=== PATIENT | female | born 1945 | race Caucasian/White ===

== ENCOUNTER → 2016-12-22 | Outpatient (CLI) | payer MEDICARE, BC, OTHER ==
[2016-12-22 17:10] LABS: WBC 6.7 k/uL (3.8-10.6); WBC (Perox) 6.81
[2016-12-22 17:11] LABS: Basophils % (A) 1 %; CH 30.2; CHCM 32.8; Eosinophils # (A) 0.1 k/uL (0-0.7); Eosinophils % (A) 2 %; HDW 2.35; HGB 12.8 gm/dL (11.4-16.0); Luc % (Auto) 2; Lymphocytes # (A) 1.7 k/uL (1.0-4.8); Lymphocytes % (A) 25 %; MCH 31.1 pg (25.0-35.0); MCHC 33.6 g/dL (31.0-37.0); MCV 92.6 fL (80.0-100.0); Monocytes # (A) 0.4 k/uL (0-1.0); Monocytes % (A) 6 %; Neutrophils # (A) 4.3 k/uL (1.3-7.7); Neutrophils % (A) 65 %; RBC 4.11 m/uL (3.80-5.40); RDW 14.2 % (11.5-15.5)
[2016-12-22 17:15] LABS: Appearance,Urine Clear (Clear); Bilirubin,Urine Negative (Negative); Glucose,Urine (UA) Negative (Negative); Ketones,Urine Negative (Negative); Leukocyte Esterase,Urine Moderate (Negative); Nitrite,Urine Negative (Negative); Particle Count 1762; Protein,Urine 2+ (Negative); RBC,Urine 3 /hpf (0-5); Specific Gravity,Urine 1.007 (1.001-1.035); Squamous Epithelial Cell,Urine <1 /hpf (0-4); UA Billing (MACRO vs. MICRO) MICRO; Urobilinogen,Urine <2.0 mg/dL (<2.0); WBC,Urine 5 /hpf (0-5)
[2016-12-22 17:35] LABS: Calcium 9.6 mg/dL (8.4-10.2); Magnesium 1.8 mg/dL (1.6-2.3); Phosphorous 3.8 mg/dL (2.5-4.5); Potassium 4.6 mmol/L (3.5-5.1); Uric Acid 6.2 mg/dL (3.7-7.4)
== END | disposition home or self-care (01) ==
LOC: LABWHC1 16:19
PROVIDERS: ATTEND Internal Medicine Nephrology
DX: N18.3 Chronic kidney disease, stage 3 (moderate) (principal); N25.81 Secondary hyperparathyroidism of renal origin; D64.9 Anemia, unspecified; E55.9 Vitamin D deficiency, unspecified; M10.9 Gout, unspecified; N39.0 Urinary tract infection, site not specified
CPT/HCPCS: 36415; 80048; 81001; 82040; 82306; 82728; 83540; 83550; 83735; 83970; 84100; 84550; 85025

== ENCOUNTER → 2017-02-28 | Outpatient (CLI) | payer MEDICARE, BC, OTHER ==
--- NOTE | 2017-02-28 14:54 | CT ---
EXAMINATION TYPE: CT soft tissue neck w con DATE OF EXAM: 02/28/2017 2:00 PM COMPARISON: NONE HISTORY: 71-year-old female with swelling, mass, lump in neck, left ear. TECHNIQUE: Contiguous axial scanning of the neck performed with IV Contrast, patient injected with 50 ml mL of Visipaque 320. Coronal/sagittal reconstructions performed. CT DLP: 595 mGycm Automated exposure control for dose reduction was used. FINDINGS: Visualized intracranial structures, paranasal sinuses, mastoid air cells, and orbits and globes appea r clear. The patient's soft palate is elevated crowding the posterior nasopharynx. There is retropharyngeal course of the bilateral ICAs causing some crowding of the oropharynx as well . Normal prevertebral soft tissues and epiglottis. Some asymmetry to the vocal folds with a larger right piriform sinus is probably positional. No discr ete glottic or subglottic masses identified. The tracheal column is clear. Mild centrilobular emphyse ma within the visualized upper lungs. The thyroid gland, submandibular glands, and parotid glands appear satisfactory. No suspicious neck mass or lymphadenopathy identified. Scattered nonenlarged cervical lymph nodes are present on both sides measuring up to 6 mm. Bones: Moderate spondylotic changes especially in the mid to lower cervical spine. IMPRESSION: 1. CROWDED NASOPHARYNX DUE TO ELEVATED SOFT PALATE AND CROWDED OROPHARYNX DUE TO RETROPHARYNGEAL COUR SE OF THE ICAs. NO DEFINITE MUCOSAL SPACE LESION. 2. THERE IS SOME ASYMMETRY TO THE VOCAL FOLDS WITH A LARGER RIGHT PIRIFORM SINUS, PROBABLY POSITIONAL . CONSIDER DIRECT VISUALIZATION. 3. NO SUSPICIOUS LYMPHADENOPATHY OR MASS OTHERWISE SEEN.
== END | disposition home or self-care (01) ==
LOC: RADCTMAIN 12:45
PROVIDERS: ATTEND Otolaryngology
DX: J39.2 Other diseases of pharynx (principal); R22.1 Localized swelling, mass and lump, neck
CPT/HCPCS: 82565; 84520; 70491; 36415; Q9967

== ENCOUNTER → 2017-03-23 | Outpatient (CLI) | payer MEDICARE, BC, OTHER ==
[2017-03-23 14:43] LABS: Basophils % (A) 1 %; CH 29.8; CHCM 32.7; Eosinophils # (A) 0.1 k/uL (0-0.7); Eosinophils % (A) 2 %; HDW 2.37; HGB 12.2 gm/dL (11.4-16.0); Luc # (Auto) 0.12; Luc % (Auto) 2; Lymphocytes # (A) 1.8 k/uL (1.0-4.8); Lymphocytes % (A) 29 %; MCH 30.1 pg (25.0-35.0); MCHC 32.9 g/dL (31.0-37.0); MCV 91.5 fL (80.0-100.0); Monocytes # (A) 0.4 k/uL (0-1.0); Monocytes % (A) 6 %; Neutrophils # (A) 3.6 k/uL (1.3-7.7); Neutrophils % (A) 60 %; RBC 4.04 m/uL (3.80-5.40); RDW 13.9 % (11.5-15.5); WBC 6.1 k/uL (3.8-10.6); WBC (Perox) 6.35
[2017-03-23 14:46] LABS: Amorphous Sediment,Urine Rare /hpf; Appearance,Urine Clear (Clear); Bilirubin,Urine Negative (Negative); Glucose,Urine (UA) Negative (Negative); Ketones,Urine Negative (Negative); Leukocyte Esterase,Urine Trace (Negative); Nitrite,Urine Negative (Negative); Particle Count 1118; Protein,Urine 2+ (Negative); RBC,Urine <1 /hpf (0-5); Specific Gravity,Urine 1.004 (1.001-1.035); Squamous Epithelial Cell,Urine <1 /hpf (0-4); UA Billing (MACRO vs. MICRO) MICRO; Urobilinogen,Urine <2.0 mg/dL (<2.0); WBC,Urine 2 /hpf (0-5)
[2017-03-23 14:52] LABS: Calcium 9.7 mg/dL (8.4-10.2); Magnesium 1.6 mg/dL (1.6-2.3); Phosphorous 3.2 mg/dL (2.5-4.5); Potassium 4.7 mmol/L (3.5-5.1); Uric Acid 6.1 mg/dL (3.7-7.4)
[2017-03-23 15:01] LABS: % Iron Saturation 33.6 % (20-50)
[2017-03-23 15:05] LABS: Creatinine,Urine Random 54.5 mg/dL
== END | disposition home or self-care (01) ==
LOC: LABWHC1 14:21
PROVIDERS: ATTEND Nurse Practitioner Family
DX: N18.3 Chronic kidney disease, stage 3 (moderate) (principal); E55.9 Vitamin D deficiency, unspecified; R80.9 Proteinuria, unspecified; D64.9 Anemia, unspecified; M10.9 Gout, unspecified
CPT/HCPCS: 36415; 80048; 81001; 82306; 82570; 82728; 83540; 83550; 83735; 83970; 84100; 84156; 84550; 85025

== ENCOUNTER → 2017-05-03 | Outpatient (CLI) | payer MEDICARE, BC, OTHER ==
--- NOTE | 2017-05-04 11:39 | MM ---
Reason for exam: screening (asymptomatic). Last mammogram was performed 1 year and 1 month ago. History: Patient is postmenopausal. Benign cyst aspiration of the right breast. Physical Findings: A clinical breast exam by your physician is recommended on an annual basis and results should be correlated with mammographic findings. MG 3D Screening Mammo W/Cad Bilateral CC and MLO view(s) were taken. Prior study comparison: April 08, 2016, mammogram, performed at [facility]. April 01, 2015, mammogram, performed at [facility]. There are scattered fibroglandular densities. Finding: There are typically benign vascular calcifications in both breasts. There is no discrete abnormality. ASSESSMENT: Benign, BI-RAD 2 RECOMMENDATION: Routine screening mammogram of both breasts in 1 year.
== END | disposition home or self-care (01) ==
LOC: RADMAMWWP 14:58
PROVIDERS: ATTEND Family Medicine
DX: Z12.31 Encounter for screening mammogram for malignant neoplasm of breast (principal)
CPT/HCPCS: 77063; G0202

== ENCOUNTER → 2017-06-22 | Outpatient (CLI) | payer MEDICARE, BC, OTHER ==
[2017-06-22 14:58] LABS: Basophils % (A) 1 %; CH 30.5; CHCM 32.9; Eosinophils # (A) 0.1 k/uL (0-0.7); Eosinophils % (A) 3 %; HDW 2.33; HGB 12.4 gm/dL (11.4-16.0); Luc % (Auto) 2; Lymphocytes # (A) 1.5 k/uL (1.0-4.8); Lymphocytes % (A) 26 %; MCH 30.3 pg (25.0-35.0); MCHC 32.6 g/dL (31.0-37.0); MCV 93.1 fL (80.0-100.0); Mean Platelet Volume 9.3; Monocytes # (A) 0.3 k/uL (0-1.0); Monocytes % (A) 5 %; Neutrophils # (A) 3.7 k/uL (1.3-7.7); Neutrophils % (A) 63 %; RBC 4.08 m/uL (3.80-5.40); RDW 14.4 % (11.5-15.5); WBC 5.8 k/uL (3.8-10.6); WBC (Perox) 6.04
[2017-06-22 15:01] LABS: Appearance,Urine Clear (Clear); Bilirubin,Urine Negative (Negative); Calcium 10.2 mg/dL (8.4-10.2); Glucose,Urine (UA) Negative (Negative); Ketones,Urine Negative (Negative); Leukocyte Esterase,Urine Small (Negative); Magnesium 1.5 mg/dL (1.6-2.3); Nitrite,Urine Negative (Negative); Particle Count 1311; Phosphorous 3.7 mg/dL (2.5-4.5); Potassium 4.7 mmol/L (3.5-5.1); Protein,Urine 3+ (Negative); RBC,Urine 1 /hpf (0-5); Specific Gravity,Urine 1.014 (1.001-1.035); Squamous Epithelial Cell,Urine 1 /hpf (0-4); UA Billing (MACRO vs. MICRO) MICRO; Uric Acid 5.9 mg/dL (3.7-7.4); Urobilinogen,Urine <2.0 mg/dL (<2.0); WBC,Urine 3 /hpf (0-5)
[2017-06-22 15:10] LABS: % Iron Saturation 39.1 % (20-50)
== END | disposition home or self-care (01) ==
LOC: LABWHC1 14:01
PROVIDERS: ATTEND Internal Medicine Nephrology
DX: R80.9 Proteinuria, unspecified (principal); N18.3 Chronic kidney disease, stage 3 (moderate); D63.1 Anemia in chronic kidney disease; M10.9 Gout, unspecified; E55.9 Vitamin D deficiency, unspecified
CPT/HCPCS: 36415; 80048; 81001; 81050; 82306; 82570; 82728; 83540; 83550; 83735; 83970; 84100; 84156; 84550; 85025

== ENCOUNTER → 2018-01-22 | Outpatient (CLI) | payer MEDICARE, BC, OTHER ==
[2018-01-22 12:13] LABS: Appearance,Urine Clear (Clear); Bacteria,Urine Rare /hpf; Bilirubin,Urine Negative (Negative); Blood,Urine Negative (Negative); Color,Urine Yellow; Glucose,Urine (UA) Negative (Negative); Hyaline Casts,Urine 4 /lpf (0-2); Ketones,Urine Negative (Negative); Leukocyte Esterase,Urine Small (Negative); Mucus,Urine Rare /hpf; Nitrite,Urine Negative (Negative); PH, Urine 6.5 (5.0-8.0); Protein,Urine 3+ (Negative); RBC,Urine 1 /hpf (0-5); Specific Gravity,Urine 1.009 (1.001-1.035); Squamous Epithelial Cell,Urine 1 /hpf (0-4); Urobilinogen,Urine <2.0 mg/dL (<2.0); WBC,Urine 7 /hpf (0-5)
[2018-01-22 12:30] LABS: Creatinine,Urine Random 97.8 mg/dL
[2018-01-22 12:35] LABS: Basophils % (A) 1 %; Eosinophils # (A) 0.1 k/uL (0-0.7); Eosinophils % (A) 2 %; HCT 39.6 % (34.0-46.0); HGB 12.6 gm/dL (11.4-16.0); Lymphocytes # (A) 1.5 k/uL (1.0-4.8); Lymphocytes % (A) 26 %; MCH 29.9 pg (25.0-35.0); MCHC 31.9 g/dL (31.0-37.0); MCV 93.8 fL (80.0-100.0); Mean Platelet Volume 8.4; Monocytes # (A) 0.3 k/uL (0-1.0); Monocytes % (A) 5 %; Neutrophils # (A) 3.7 k/uL (1.3-7.7); Neutrophils % (A) 66 %; Platelet Count 288 k/uL (150-450); RBC 4.22 m/uL (3.80-5.40); RDW 13.9 % (11.5-15.5); WBC 5.6 k/uL (3.8-10.6)
[2018-01-22 12:37] LABS: Calcium 10.2 mg/dL (8.4-10.2); Magnesium 1.9 mg/dL (1.6-2.3); Uric Acid 5.3 mg/dL (3.7-7.4)
[2018-01-22 16:26] LABS: Iron Saturation 33.33 (12.00-45.00)
[2018-01-22 16:58] LABS: Parathyroid Hormone Intact 99.7 pg/mL (14.0-72.0)
== END | disposition home or self-care (01) ==
LOC: LABWHC1 11:38
PROVIDERS: ATTEND Physician Assistant Medical
DX: D64.9 Anemia, unspecified (principal); M10.9 Gout, unspecified; N18.3 Chronic kidney disease, stage 3 (moderate); R80.9 Proteinuria, unspecified; E55.9 Vitamin D deficiency, unspecified
CPT/HCPCS: 36415; 80048; 81001; 82306; 82570; 82728; 83540; 83550; 83735; 83970; 84100; 84156; 84550; 85025

== ENCOUNTER → 2018-05-09 | Outpatient (CLI) | payer MEDICARE, BC, OTHER ==
--- NOTE | 2018-05-14 08:06 | MM ---
Reason for exam: screening (asymptomatic). Last mammogram was performed 1 year ago. History: Patient is postmenopausal. Benign cyst aspiration of the right breast. Physical Findings: A clinical breast exam by your physician is recommended on an annual basis and results should be correlated with mammographic findings. MG 3D Screening Mammo W/Cad Bilateral CC and MLO view(s) were taken. Prior study comparison: May 03, 2017, bilateral MG 3d screening mammo w/cad. April 08, 2016, mammogram, performed at [facility]. There are scattered fibroglandular densities. No significant changes when compared with prior studies. ASSESSMENT: Benign, BI-RAD 2 RECOMMENDATION: Routine screening mammogram of both breasts in 1 year.
== END | disposition home or self-care (01) ==
LOC: RADMAMWWP 16:27
PROVIDERS: ATTEND Family Medicine
DX: Z12.31 Encounter for screening mammogram for malignant neoplasm of breast (principal)
CPT/HCPCS: 77063; 77067

== ENCOUNTER → 2018-05-21 | Outpatient (CLI) | payer MEDICARE, BC, OTHER ==
[2018-05-21 11:37] LABS: Calcium 9.9 mg/dL (8.4-10.2); Magnesium 1.9 mg/dL (1.6-2.3); Phosphorus 3.8 mg/dL (2.5-4.5); Potassium 4.7 mmol/L (3.5-5.1); Uric Acid 7.6 mg/dL (3.7-7.4)
[2018-05-21 12:12] LABS: Basophils % (A) 1 %; Eosinophils # (A) 0.1 k/uL (0-0.7); Eosinophils % (A) 2 %; HCT 38.6 % (34.0-46.0); HGB 12.6 gm/dL (11.4-16.0); Lymphocytes # (A) 1.5 k/uL (1.0-4.8); Lymphocytes % (A) 27 %; MCH 30.5 pg (25.0-35.0); MCHC 32.7 g/dL (31.0-37.0); Mean Platelet Volume 7.9; Monocytes # (A) 0.3 k/uL (0-1.0); Monocytes % (A) 5 %; Neutrophils # (A) 3.5 k/uL (1.3-7.7); Neutrophils % (A) 65 %; Platelet Count 273 k/uL (150-450); RBC 4.15 m/uL (3.80-5.40); RDW 14.3 % (11.5-15.5); WBC 5.5 k/uL (3.8-10.6)
[2018-05-21 12:57] LABS: Appearance,Urine Clear (Clear); Bilirubin,Urine Negative (Negative); Blood,Urine Negative (Negative); Color,Urine Yellow; Glucose,Urine (UA) Negative (Negative); Hyaline Casts,Urine 1 /lpf (0-2); Ketones,Urine Negative (Negative); Leukocyte Esterase,Urine Small (Negative); Mucus,Urine Rare /hpf; Nitrite,Urine Negative (Negative); PH, Urine 6.5 (5.0-8.0); Protein,Urine 2+ (Negative); RBC,Urine <1 /hpf (0-5); Specific Gravity,Urine 1.011 (1.001-1.035); Squamous Epithelial Cell,Urine <1 /hpf (0-4); Urobilinogen,Urine <2.0 mg/dL (<2.0); WBC,Urine 3 /hpf (0-5)
[2018-05-21 13:21] LABS: Creatinine,Urine Random 107.5 mg/dL
[2018-05-21 15:58] LABS: Parathyroid Hormone Intact 83.8 pg/mL (14.0-72.0)
[2018-05-21 16:42] LABS: Iron Saturation 23.18 (12.00-45.00)
[2018-05-21 16:51] LABS: Vitamin D 25 Hydroxy 41.1 ng/mL (30.0-100.0)
== END | disposition home or self-care (01) ==
LOC: LABWHC1 10:50
PROVIDERS: ATTEND Nurse Practitioner Family
DX: E55.9 Vitamin D deficiency, unspecified (principal); D63.1 Anemia in chronic kidney disease; N18.3 Chronic kidney disease, stage 3 (moderate); R80.9 Proteinuria, unspecified
CPT/HCPCS: 36415; 80048; 81001; 82306; 82570; 82728; 83540; 83550; 83735; 83970; 84100; 84156; 84550; 85025

== ENCOUNTER → 2018-11-01 | Outpatient (CLI) | payer MEDICARE, BC, OTHER ==
[2018-11-01 20:30] LABS: Anion Gap 8.2 mmol/L (4.00-12.00); Calcium 9.7 mg/dL (8.7-10.3); Carbon Dioxide 23.8 mmol/L (21.6-31.8); Potassium 4.9 mmol/L (3.5-5.5)
== END | disposition home or self-care (01) ==
LOC: LABWHC1 14:11
PROVIDERS: ATTEND Internal Medicine Nephrology
DX: N18.3 Chronic kidney disease, stage 3 (moderate) (principal)
CPT/HCPCS: 36415; 80048

== ENCOUNTER → 2019-01-03 | Outpatient (CLI) | payer MEDICARE, BC, OTHER ==
[2019-01-03 15:13] LABS: Basophils % (A) 1 %; Eosinophils # (A) 0.2 k/uL (0-0.7); Eosinophils % (A) 3 %; HCT 36.9 % (34.0-46.0); HGB 11.5 gm/dL (11.4-16.0); Lymphocytes # (A) 1.7 k/uL (1.0-4.8); Lymphocytes % (A) 30 %; MCH 29.1 pg (25.0-35.0); MCHC 31.3 g/dL (31.0-37.0); MCV 93.1 fL (80.0-100.0); Mean Platelet Volume 8.9; Monocytes # (A) 0.3 k/uL (0-1.0); Monocytes % (A) 6 %; Neutrophils # (A) 3.3 k/uL (1.3-7.7); Neutrophils % (A) 59 %; Platelet Count 261 k/uL (150-450); RBC 3.96 m/uL (3.80-5.40); RDW 14.5 % (11.5-15.5); WBC 5.7 k/uL (3.8-10.6)
[2019-01-03 15:15] LABS: Appearance,Urine Clear (Clear); Bilirubin,Urine Negative (Negative); Blood,Urine Negative (Negative); Color,Urine Yellow; Glucose,Urine (UA) Negative (Negative); Hyaline Casts,Urine 3 /lpf (0-2); Ketones,Urine Negative (Negative); Leukocyte Esterase,Urine Negative (Negative); Nitrite,Urine Negative (Negative); Protein,Urine 3+ (Negative); RBC,Urine 1 /hpf (0-5); Urobilinogen,Urine <2.0 mg/dL (<2.0); WBC,Urine 2 /hpf (0-5)
[2019-01-03 19:11] LABS: Iron Saturation 42.19 (12.00-45.00)
[2019-01-03 19:23] LABS: Albumin 4.4 g/dL (3.80-4.90); Anion Gap 8.9 mmol/L (4.00-12.00); Calcium 9.7 mg/dL (8.7-10.3); Carbon Dioxide 23.1 mmol/L (21.6-31.8); Magnesium 1.7 mg/dL (1.5-2.4); Phosphorus 3.1 mg/dL (2.4-5.1); Potassium 4.5 mmol/L (3.5-5.5); Uric Acid 5.7 mg/dL (2.9-7.7)
[2019-01-03 20:19] LABS: Parathyroid Hormone Intact 126.6 pg/mL (14.0-72.0)
[2019-01-03 21:17] LABS: Total Protein,Urine Random 261.7 mg/dL (0.0-13.5)
[2019-01-03 21:18] LABS: Creatinine,Urine Random 111.8 mg/dL
== END | disposition home or self-care (01) ==
LOC: LABWHC1 13:58
PROVIDERS: ATTEND Internal Medicine Nephrology
DX: N39.0 Urinary tract infection, site not specified (principal); M10.9 Gout, unspecified; N18.3 Chronic kidney disease, stage 3 (moderate); E55.9 Vitamin D deficiency, unspecified; N25.81 Secondary hyperparathyroidism of renal origin; D63.1 Anemia in chronic kidney disease
CPT/HCPCS: 36415; 80048; 81001; 82040; 82306; 82570; 82728; 83540; 83550; 83735; 83970; 84100; 84156; 84550; 85025

== ENCOUNTER → 2019-02-01 | Outpatient (CLI) | payer MEDICARE, BC, OTHER ==
--- NOTE | 2019-02-01 13:47 | CT ---
EXAMINATION TYPE: CT sinus wo con DATE OF EXAM: 02/01/2019 COMPARISON: NONE HISTORY: Congestion with BURRELL CT DLP: 583 mGycm. Automated Exposure Control for Dose Reduction was Utilized. TECHNIQUE: CT scan of the sinuses is performed without contrast, axial images are obtained, coronal r eformatted images are also reviewed. FINDINGS: Very scant mucosal thickening is seen within the inferior left posterior maxillary sinus. R emainder the paranasal sinuses and mastoid air cells are well aerated other than a very small left et hmoid osteoma. The ostiomeatal complexes are patent. No significant mucosal hypertrophy surrounding t he nasal turbinates. There is slight undulation of the nasal septum. Visualized facial bones appear i ntact. Minimal atherosclerosis is seen in the intracranial vasculature. Exam is not optimized for int racranial structures although age-related cerebral atrophy is noted as well as mild periventricular n onspecific white matter change, likely on the basis of chronic microangiopathy. Temporomandibular shanique nts are symmetric. No Fermin cells or malvin bullosa. IMPRESSION: Very scant mucosal thickening within the left maxillary sinus. Ostiomeatal complexes are patent.
== END | disposition home or self-care (01) ==
LOC: RADCTMAIN 13:19
PROVIDERS: ATTEND Family Medicine
DX: J34.89 Other specified disorders of nose and nasal sinuses (principal); J32.9 Chronic sinusitis, unspecified
CPT/HCPCS: 70486

== ENCOUNTER → 2019-04-01 | Outpatient (CLI) | payer MEDICARE, BC, OTHER ==
[2019-04-01 13:33] LABS: Basophils % (A) 1 %; Eosinophils # (A) 0.1 k/uL (0-0.7); Eosinophils % (A) 2 %; HCT 35.6 % (34.0-46.0); HGB 11.5 gm/dL (11.4-16.0); Lymphocytes # (A) 1.2 k/uL (1.0-4.8); Lymphocytes % (A) 27 %; MCHC 32.2 g/dL (31.0-37.0); MCV 93.2 fL (80.0-100.0); Mean Platelet Volume 9.3; Monocytes # (A) 0.2 k/uL (0-1.0); Monocytes % (A) 4 %; Neutrophils # (A) 2.9 k/uL (1.3-7.7); Neutrophils % (A) 64 %; Platelet Count 234 k/uL (150-450); RBC 3.82 m/uL (3.80-5.40); RDW 14.3 % (11.5-15.5); WBC 4.5 k/uL (3.8-10.6)
[2019-04-01 13:59] LABS: Appearance,Urine Clear (Clear); Bilirubin,Urine Negative (Negative); Blood,Urine Negative (Negative); Color,Urine Yellow; Glucose,Urine (UA) Negative (Negative); Ketones,Urine Negative (Negative); Leukocyte Esterase,Urine Negative (Negative); Mucus,Urine Rare /hpf; Nitrite,Urine Negative (Negative); Protein,Urine 2+ (Negative); RBC,Urine 1 /hpf (0-5); Specific Gravity,Urine 1.008 (1.001-1.035); Urobilinogen,Urine <2.0 mg/dL (<2.0); WBC,Urine 1 /hpf (0-5)
[2019-04-01 19:22] LABS: Iron Saturation 31.03 (12.00-45.00)
[2019-04-01 19:29] LABS: Vitamin D 25 Hydroxy 42.3 ng/mL (30.0-100.0)
[2019-04-01 19:35] LABS: Albumin 4.4 g/dL (3.80-4.90); Anion Gap 10.4 mmol/L (4.00-12.00); Calcium 9.6 mg/dL (8.7-10.3); Carbon Dioxide 20.6 mmol/L (21.6-31.8); Magnesium 1.6 mg/dL (1.5-2.4); Phosphorus 3.2 mg/dL (2.4-5.1); Potassium 4.6 mmol/L (3.5-5.5); Uric Acid 5.7 mg/dL (2.9-7.7)
[2019-04-01 20:45] LABS: Creatinine,Urine Random 71.6 mg/dL
[2019-04-01 20:53] LABS: Total Protein,Urine Random 145.3 mg/dL (0.0-13.5)
[2019-04-01 21:50] LABS: Parathyroid Hormone Intact 110.3 pg/mL (14.0-72.0)
== END | disposition home or self-care (01) ==
LOC: LABWHC1 12:52
PROVIDERS: ATTEND Internal Medicine Nephrology
DX: N39.0 Urinary tract infection, site not specified (principal); E55.9 Vitamin D deficiency, unspecified; E21.3 Hyperparathyroidism, unspecified; M10.9 Gout, unspecified; D63.1 Anemia in chronic kidney disease; N18.3 Chronic kidney disease, stage 3 (moderate); R80.9 Proteinuria, unspecified
CPT/HCPCS: 36415; 80048; 81001; 82040; 82306; 82570; 82728; 83540; 83550; 83735; 83970; 84100; 84156; 84550; 85025

== ENCOUNTER → 2019-07-08 | Outpatient (CLI) | payer MEDICARE, BC, OTHER ==
--- NOTE | 2019-07-09 10:07 | MM ---
Reason for exam: screening (asymptomatic). Last mammogram was performed 1 year and 2 months ago. History: Patient is postmenopausal. Benign cyst aspiration of the right breast. Physical Findings: A clinical breast exam by your physician is recommended on an annual basis and results should be correlated with mammographic findings. MG 3D Screening Mammo W/Cad Bilateral CC and MLO view(s) were taken. Prior study comparison: May 09, 2018, bilateral MG 3d screening mammo w/cad. May 03, 2017, bilateral MG 3d screening mammo w/cad. There are scattered fibroglandular densities. Benign appearing bilateral vascular calcifications. No suspicious abnormality. No significant changes when compared with prior studies. ASSESSMENT: Benign, BI-RAD 2 RECOMMENDATION: Routine screening mammogram of both breasts in 1 year.
== END | disposition home or self-care (01) ==
LOC: RADMAMWWP 14:30
PROVIDERS: ATTEND Family Medicine
DX: Z12.31 Encounter for screening mammogram for malignant neoplasm of breast (principal)
CPT/HCPCS: 77063; 77067

== ENCOUNTER → 2019-09-03 | Outpatient (CLI) | payer MEDICARE, BC, OTHER ==
[2019-09-03 15:48] LABS: Appearance,Urine Clear (Clear); Bacteria,Urine Rare /hpf; Bilirubin,Urine Negative (Negative); Blood,Urine Negative (Negative); Color,Urine Light Yellow; Glucose,Urine (UA) Negative (Negative); Ketones,Urine Negative (Negative); Leukocyte Esterase,Urine Negative (Negative); Nitrite,Urine Negative (Negative); Protein,Urine 2+ (Negative); RBC,Urine <1 /hpf (0-5); Specific Gravity,Urine 1.007 (1.001-1.035); Urobilinogen,Urine <2.0 mg/dL (<2.0); WBC,Urine 2 /hpf (0-5)
[2019-09-03 16:31] LABS: Basophils % (A) 1 %; Eosinophils # (A) 0.1 k/uL (0-0.7); Eosinophils % (A) 2 %; HCT 35.7 % (34.0-46.0); HGB 10.8 gm/dL (11.4-16.0); Lymphocytes # (A) 1.2 k/uL (1.0-4.8); Lymphocytes % (A) 24 %; MCH 29.4 pg (25.0-35.0); MCHC 30.3 g/dL (31.0-37.0); MCV 97.1 fL (80.0-100.0); Mean Platelet Volume 9.5; Monocytes # (A) 0.2 k/uL (0-1.0); Monocytes % (A) 4 %; Neutrophils # (A) 3.4 k/uL (1.3-7.7); Neutrophils % (A) 68 %; Platelet Count 215 k/uL (150-450); RBC 3.68 m/uL (3.80-5.40); RDW 14.2 % (11.5-15.5)
[2019-09-03 19:38] LABS: Iron Saturation 32.17 (12.00-45.00)
[2019-09-03 19:39] LABS: Albumin 4.4 g/dL (3.80-4.90); Anion Gap 7.9 mmol/L (4.00-12.00); Calcium 9.2 mg/dL (8.7-10.3); Carbon Dioxide 23.1 mmol/L (21.6-31.8); Magnesium 1.6 mg/dL (1.5-2.4); Phosphorus 3.1 mg/dL (2.4-5.1); Potassium 5.1 mmol/L (3.5-5.5); Uric Acid 5.4 mg/dL (2.9-7.7)
[2019-09-03 19:46] LABS: Ferritin 59.3 ng/mL (10.0-291.0); Vitamin D 25 Hydroxy 39.6 ng/mL (30.0-100.0)
[2019-09-04 04:20] LABS: Creatinine,Urine Random 59.1 mg/dL
[2019-09-04 04:31] LABS: Total Protein,Urine Random 94.7 mg/dL (0.0-13.5)
== END | disposition home or self-care (01) ==
LOC: LABWHC1 14:37
PROVIDERS: ATTEND Nurse Practitioner Family
DX: E55.9 Vitamin D deficiency, unspecified (principal); N25.81 Secondary hyperparathyroidism of renal origin; M10.9 Gout, unspecified; N39.0 Urinary tract infection, site not specified; D63.1 Anemia in chronic kidney disease; N18.3 Chronic kidney disease, stage 3 (moderate)
CPT/HCPCS: 36415; 80048; 81001; 82040; 82306; 82570; 82728; 83540; 83550; 83735; 83970; 84100; 84156; 84550; 85025

== ENCOUNTER → 2019-10-04 | Outpatient (CLI) | payer MEDICARE, BC, OTHER ==
[2019-10-04 19:00] LABS: African American GFR (CKD) 29.8 (60.0-200.0); Anion Gap 8.5 mmol/L (4.00-12.00); Calcium 9.4 mg/dL (8.7-10.3); Carbon Dioxide 20.5 mmol/L (21.6-31.8)
== END | disposition home or self-care (01) ==
LOC: LABWHC1 14:29
PROVIDERS: ATTEND Internal Medicine Nephrology
DX: N18.3 Chronic kidney disease, stage 3 (moderate) (principal)
CPT/HCPCS: 36415; 80048

== ENCOUNTER → 2019-12-10 | Outpatient (CLI) | payer MEDICARE, BC, OTHER ==
[2019-12-10 14:21] LABS: Basophils % (A) 0 %; Eosinophils # (A) 0.1 k/uL (0-0.7); Eosinophils % (A) 2 %; HCT 35.9 % (34.0-46.0); HGB 11.2 gm/dL (11.4-16.0); Lymphocytes # (A) 1.2 k/uL (1.0-4.8); Lymphocytes % (A) 26 %; MCH 29.4 pg (25.0-35.0); MCHC 31.1 g/dL (31.0-37.0); MCV 94.5 fL (80.0-100.0); Mean Platelet Volume 8.9; Monocytes # (A) 0.2 k/uL (0-1.0); Monocytes % (A) 4 %; Neutrophils # (A) 3.2 k/uL (1.3-7.7); Neutrophils % (A) 66 %; Platelet Count 210 k/uL (150-450); RDW 14.1 % (11.5-15.5); WBC 4.8 k/uL (3.8-10.6)
[2019-12-10 15:04] LABS: Appearance,Urine Clear (Clear); Bilirubin,Urine Negative (Negative); Blood,Urine Negative (Negative); Color,Urine Yellow; Glucose,Urine (UA) Negative (Negative); Hyaline Casts,Urine 3 /lpf (0-2); Ketones,Urine Negative (Negative); Leukocyte Esterase,Urine Negative (Negative); Nitrite,Urine Negative (Negative); Protein,Urine 2+ (Negative); RBC,Urine <1 /hpf (0-5); Urobilinogen,Urine <2.0 mg/dL (<2.0); WBC,Urine 1 /hpf (0-5)
[2019-12-10 19:46] LABS: % Iron Saturation 45.53 (12.00-45.00); African American GFR (CKD) 29.8 (60.0-200.0); Albumin 4.4 g/dL (3.80-4.90); Anion Gap 8.7 mmol/L (4.00-12.00); BUN/Creat Ratio 21.58 Ratio (12.00-20.00); Calcium 9.4 mg/dL (8.7-10.3); Carbon Dioxide 20.3 mmol/L (21.6-31.8); Magnesium 1.6 mg/dL (1.5-2.4); Non-African American GFR(CKD) 25.7 (60.0-200.0); Phosphorus 3.5 mg/dL (2.4-5.1); Potassium 4.8 mmol/L (3.5-5.5); Uric Acid 5.1 mg/dL (2.9-7.7)
[2019-12-10 19:54] LABS: Ferritin 63.2 ng/mL (10.0-291.0)
== END | disposition home or self-care (01) ==
LOC: LABWHC1 13:39
PROVIDERS: ATTEND Internal Medicine Nephrology
DX: N18.3 Chronic kidney disease, stage 3 (moderate) (principal); M10.9 Gout, unspecified; R80.9 Proteinuria, unspecified
CPT/HCPCS: 36415; 80048; 81001; 82040; 82306; 82570; 82728; 83540; 83550; 83735; 83970; 84100; 84156; 84550; 85025

== ENCOUNTER → 2020-03-11 | Outpatient (CLI) | payer MEDICARE, BC, OTHER ==
[2020-03-11 11:37] LABS: Basophils % (A) 0 %; Eosinophils # (A) 0.1 k/uL (0-0.7); Eosinophils % (A) 2 %; HCT 35.9 % (34.0-46.0); HGB 11.2 gm/dL (11.4-16.0); Lymphocytes # (A) 1.5 k/uL (1.0-4.8); Lymphocytes % (A) 20 %; MCH 29.4 pg (25.0-35.0); MCHC 31.1 g/dL (31.0-37.0); MCV 94.5 fL (80.0-100.0); Mean Platelet Volume 10.2; Monocytes # (A) 0.3 k/uL (0-1.0); Monocytes % (A) 4 %; Neutrophils # (A) 5.3 k/uL (1.3-7.7); Neutrophils % (A) 72 %; Platelet Count 230 k/uL (150-450); RDW 14.2 % (11.5-15.5); WBC 7.3 k/uL (3.8-10.6)
[2020-03-11 12:02] LABS: Protein/Creatinine Ratio,Urine 2.748
[2020-03-11 12:09] LABS: Appearance,Urine Clear (Clear); Bacteria,Urine Rare /hpf; Bilirubin,Urine Negative (Negative); Blood,Urine Negative (Negative); Color,Urine Yellow; Glucose,Urine (UA) Negative (Negative); Hyaline Casts,Urine 1 /lpf (0-2); Ketones,Urine Negative (Negative); Leukocyte Esterase,Urine Trace (Negative); Mucus,Urine Rare /hpf; Nitrite,Urine Negative (Negative); Protein,Urine 2+ (Negative); RBC,Urine 1 /hpf (0-5); Specific Gravity,Urine 1.011 (1.001-1.035); Squamous Epithelial Cell,Urine <1 /hpf (0-4); Urobilinogen,Urine <2.0 mg/dL (<2.0); WBC,Urine 1 /hpf (0-5)
[2020-03-11 18:35] LABS: % Iron Saturation 28.35 (12.00-45.00); Albumin 4.4 g/dL (3.80-4.90); Magnesium 1.6 mg/dL (1.5-2.4); Phosphorus 3.9 mg/dL (2.4-5.1)
[2020-03-11 18:44] LABS: Ferritin 91.2 ng/mL (10.0-291.0)
== END | disposition home or self-care (01) ==
LOC: LABWHC1 11:06
PROVIDERS: ATTEND Nurse Practitioner Family
DX: M10.9 Gout, unspecified (principal); N39.0 Urinary tract infection, site not specified; R80.9 Proteinuria, unspecified; N25.81 Secondary hyperparathyroidism of renal origin; N18.3 Chronic kidney disease, stage 3 (moderate); D63.8 Anemia in other chronic diseases classified elsewhere
CPT/HCPCS: 36415; 81001; 82040; 82306; 82570; 82728; 83540; 83550; 83735; 83970; 84100; 84156; 84550; 85025

== ENCOUNTER 2020-07-30 10:33 | Day surgery (SDC) | payer MEDICARE, BC, OTHER ==
[2020-07-27 15:36] VITALS: BMI 27.4
[~2020-07-30 10:33] MED LIST: LACTATED RINGERS 1,000 ML IV SCH
[2020-07-30 11:03] VITALS: TEMP 98.4
[2020-07-30] MEDS ORDERED: LIDOCAINE 1% (10MG/ML) FOR IV START INTRADERMA ONE (11:17)
[2020-07-30] MEDS ORDERED: PROPOFOL 10 MG/ML 20 ML VIAL IV ONE (12:37)
--- NOTE | 2020-07-30 13:07 | P.PCN ---
Date of Procedure: 07/30/20 Description of Procedure: BRIEF HISTORY: Patient is a 75-year-old female who presents for outpatient colonoscopy for evaluation of change in bowel habits. She reports constipation which has developed over the past 3 weeks. She states straining with bowel movements. Last colonoscopy approximate 6 years ago as per her recollection. She does report a polyp in the past. PROCEDURE PERFORMED: Colonoscopy. PREOPERATIVE DIAGNOSIS: Change in bowel habits, patient reports last colonoscopy 6 years ago. ESTIMATED BLOOD LOSS: Minimal. IV sedation per Anesthesia. PROCEDURE: After informed consent was obtained, the patient, was brought into the endoscopy unit. IV sedation was administered by Anesthesia under continuous monitoring. Digital rectal examination was normal. Initially the Olympus CF-190 flexible video colonoscope was then inserted in the rectum, gradually advanced into the cecum without any difficulty. Careful examination was performed as the scope was gradually being withdrawn. Ileocecal valve and the appendiceal orifice were visualized and appeared normal. Prep was excellent. Mucosa of the cecum, ascending colon, transverse colon, descending colon, sigmoid colon, and rectum appeared normal. Multiple large and small mouth diverticula in the sigmoid and descending colon. Retroflexion was performed in the rectum and no lesions were seen. The patient tolerated the procedure well. IMPRESSION: Severe left colonic diverticulosis. Low-grade internal hemorrhoids Otherwise normal-appearing colon from rectum to cecum. RECOMMENDATIONS: Findings of this examination were discussed with the patient. Okay to resume diet and medications. Would recommend initiation of MiraLAX therapy which has been discussed with the patient length. Follow up with primary care provider as previously scheduled.
[2020-07-30 13:56] VITALS: BP 172/78; PULSE 88; RESP 20
== END 2020-07-30 13:05 | disposition home or self-care (01) ==
LOC: ORWHC2ENDO 10:33
PROVIDERS: ATTEND Internal Medicine
DX: K57.30 Diverticulosis of large intestine without perforation or abscess without bleeding (principal); K64.8 Other hemorrhoids; I10 Essential (primary) hypertension; E78.5 Hyperlipidemia, unspecified; N28.9 Disorder of kidney and ureter, unspecified; M19.90 Unspecified osteoarthritis, unspecified site; K21.9 Gastro-esophageal reflux disease without esophagitis; Z79.891 Long term (current) use of opiate analgesic; Z79.899 Other long term (current) drug therapy; Z88.1 Allergy status to other antibiotic agents; Z88.5 Allergy status to narcotic agent; Z88.0 Allergy status to penicillin; Z88.2 Allergy status to sulfonamides; Z88.8 Allergy status to other drugs, medicaments and biological substances
CPT/HCPCS: 45378; J2704

== ENCOUNTER → 2020-09-02 | Outpatient (CLI) | payer MEDICARE, BC, OTHER ==
--- NOTE | 2020-09-07 08:29 | MM ---
Reason for exam: screening (asymptomatic). Last mammogram was performed 1 year and 2 months ago. History: Patient is postmenopausal. Benign cyst aspiration of the right breast. Physical Findings: A clinical breast exam by your physician is recommended on an annual basis and results should be correlated with mammographic findings. MG 3D Screening Mammo W/Cad Bilateral CC and MLO view(s) were taken. Prior study comparison: July 08, 2019, bilateral MG 3d screening mammo w/cad. May 09, 2018, bilateral MG 3d screening mammo w/cad. There are scattered fibroglandular densities. No significant changes when compared with prior studies. ASSESSMENT: Benign, BI-RAD 2 RECOMMENDATION: Routine screening mammogram of both breasts in 1 year. Manage on a clinical basis with regard to stinging sensation in the left breast.
== END | disposition home or self-care (01) ==
LOC: RADMAMWWP 12:58
PROVIDERS: ATTEND Family Medicine
DX: Z12.31 Encounter for screening mammogram for malignant neoplasm of breast (principal)
CPT/HCPCS: 77063; 77067

== ENCOUNTER → 2020-09-29 | Outpatient (CLI) | payer MEDICARE, BC, OTHER ==
[2020-09-29 15:16] LABS: HCT 34.6 % (34.0-46.0); MCH 30.8 pg (25.0-35.0); MCHC 31.9 g/dL (31.0-37.0); MCV 96.4 fL (80.0-100.0); Mean Platelet Volume 9.6; Platelet Count 189 k/uL (150-450); RBC 3.59 m/uL (3.80-5.40); RDW 14.7 % (11.5-15.5); WBC 5.4 k/uL (3.8-10.6)
[2020-09-30 02:43] LABS: % Iron Saturation 54.89 (12.00-45.00); African American GFR (CKD) 24.8 (60.0-200.0); Albumin 4.3 g/dL (3.80-4.90); Albumin/Globulin Ratio 2.05 (1.60-3.17); Anion Gap 8.8 mmol/L (4.00-12.00); BUN/Creat Ratio 21.82 Ratio (12.00-20.00); Calcium 9.6 mg/dL (8.7-10.3); Carbon Dioxide 22.2 mmol/L (21.6-31.8); Globulin 2.1 g/dL (1.6-3.3); Magnesium 1.8 mg/dL (1.5-2.4); Non-African American GFR(CKD) 21.4 (60.0-200.0); Phosphorus 4.5 mg/dL (2.4-5.1); Potassium 5.4 mmol/L (3.5-5.5); Total Bilirubin 0.4 mg/dL (0.2-1.2); Total Protein 6.4 g/dL (6.2-8.2); Uric Acid 5.5 mg/dL (2.9-7.7)
[2020-09-30 02:52] LABS: Ferritin 57.2 ng/mL (10.0-291.0)
== END | disposition home or self-care (01) ==
LOC: LABWHC1 13:40
PROVIDERS: ATTEND Nurse Practitioner Family
DX: E55.9 Vitamin D deficiency, unspecified (principal); D63.1 Anemia in chronic kidney disease; N18.30 Chronic kidney disease, stage 3 unspecified; N25.81 Secondary hyperparathyroidism of renal origin; M10.9 Gout, unspecified
CPT/HCPCS: 36415; 80053; 82306; 82728; 83540; 83550; 83735; 83970; 84100; 84550; 85027

== ENCOUNTER → 2020-11-03 | Outpatient (CLI) | payer MEDICARE, BC, OTHER ==
--- NOTE | 2020-11-03 16:40 | US ---
EXAMINATION TYPE: US carotid duplex BILAT DATE OF EXAM: 11/03/2020 COMPARISON: NONE CLINICAL HISTORY: H54.7 Visual loss. Pt states visual loss left eye, loss of balance EXAM MEASUREMENTS: RIGHT: Peak Systolic Velocity (PSV) cm/sec ----- Right CCA: 61.3 ----- Right ICA: 81.2 ----- Right ECA: 87.0 ICA/CCA ratio: 1.3 RIGHT: End Diastole cm/sec ----- Right CCA: 17.7 ----- Right ICA: 25.8 ----- Right ECA: 10.8 LEFT: Peak Systolic Velocity (PSV) cm/sec ----- Left CCA: 62.4 ----- Left ICA: 96.2 ----- Left ECA: 88.7 ICA/CCA ratio: 1.5 LEFT: End Diastole cm/sec ----- Left CCA: 16.8 ----- Left ICA: 32.3 ----- Left ECA: 17.2 VERTEBRALS (direction of flow): Right Vertebral: Antegrade Left Vertebral: Antegrade Rhythm: Normal Grayscale, color Doppler, spectral Doppler imaging performed of the carotid arteries. Waveform analys is does not show significant stenosis of the internal carotid arteries. No significant stenosis seen IMPRESSION: No hemodynamic significant stenosis of the proximal internal carotid arteries by Doppler criteria, an indirect measurement of carotid stenosis Criteria for Assigning % of Stenosis / Diameter reduction (Estimation based on the indirect measurements of the internal carotid artery velocities (ICA PSV). 1. Normal (no stenosis)=ICA PSV < 125 cm/s: ratio < 2.0: ICA EDV<40 cm/s. 2. Less than 50% stenosis=ICA PSV < 125 cm/s: ratio < 2.0: ICA EDV<40 cm/s. 3. 50 to 69% stenosis=ICA PSV of 125 to 230 cm/s: ration 2.0 ? 4.0: ICA EDV 40-100 cm/s. 4. Greater than 70% stenosis to near occlusion= ICA PSV > 230 cm/s: ratio > 4.0: ICA EDV > 100 cm/s. 5. Near occlusion= ICA PSV velocities may be low or undetectable: variable ratio and ICA EDV. 6. Total occlusion=unable to detect flow.
--- NOTE | 2020-11-03 21:07 | CT ---
EXAMINATION TYPE: CT brain wo con DATE OF EXAM: 11/03/2020 COMPARISON: None available. HISTORY: memory loss, changes in vision, loss of balance CT DLP: 1017.9 mGycm Automated exposure control for dose reduction was used. FINDINGS: There is no acute intracranial hemorrhage, midline shift, mass effect or hydrocephalus. There is mode rate white matter disease and mild parenchymal volume loss. The espinal-white differentiation is maintai desean. The calvarium is intact. The paranasal sinuses and mastoid air cells are adequately aerated. IMPRESSION: NO ACUTE INTRACRANIAL ABNORMALITY. CHRONIC MICROVASCULAR ISCHEMIC CHANGES.
== END | disposition home or self-care (01) ==
LOC: RADUSWWP 15:52
PROVIDERS: ATTEND Family Medicine
DX: I67.82 Cerebral ischemia (principal); H54.7 Unspecified visual loss
CPT/HCPCS: 70450; 93880

== ENCOUNTER → 2021-03-11 | Day surgery (SDC) | payer MEDICARE, BC, OTHER ==
[2021-03-08 13:33] VITALS: BMI 28.5
[~2021-03-11] MED LIST changes: -LACTATED RINGERS 1,000 ML IV SCH; +SODIUM CHLORIDE 0.9% 1,000 ML IV SCH
[2021-03-11 12:22] VITALS: BP 176/82; PULSE 67; RESP 18; TEMP 97.7
--- NOTE | 2021-03-11 14:03 | P.EPPROC ---
- EP Procedure Note Electrophysiology Procedure Note: Diagnosis Recurrent palpitations recurrent presyncope Twelve-lead EKG shows Sinus mechanism normal CO narrow QRS normal QT interval no delta waves Sinus arrhythmia, heart rate 57 beats Tilt table test per protocol Baseline blood pressure 171/80 mmHg, Baseline heart rate 64 beats a minute Patient was tilted upright at an angle of 70 per protocol for blood pressure remained elevated throughout the study vein 150 260 mmHg. Heart rate remained stable in the 60s There was no evidence for dysautonomia No evidence for neurocardiogenic syncope No evidence for orthostatic intolerance There was no evidence for syncope She is laid supine at the end of the procedure Impression Normal twelve-lead EKG is sinus arrhythmia No evidence for neurocardiogenic syncope dysautonomia Elevated blood pressure readings
== END ==
LOC: CATHEP 11:48
PROVIDERS: ATTEND Internal Medicine Clinical Cardiac Electrophysiology
DX: R55 Syncope and collapse (principal); R00.2 Palpitations; R07.89 Other chest pain; I12.9 Hypertensive chronic kidney disease with stage 1 through stage 4 chronic kidney disease, or unspecified chronic kidney disease; N18.31 Chronic kidney disease, stage 3a; H54.62 Unqualified visual loss, left eye, normal vision right eye; D47.2 Monoclonal gammopathy; Z98.42 Cataract extraction status, left eye; Z98.41 Cataract extraction status, right eye; Z87.891 Personal history of nicotine dependence; E78.5 Hyperlipidemia, unspecified; Z82.49 Family history of ischemic heart disease and other diseases of the circulatory system; I67.1 Cerebral aneurysm, nonruptured; Z79.02 Long term (current) use of antithrombotics/antiplatelets; Z79.899 Other long term (current) drug therapy
CPT/HCPCS: 93660

== ENCOUNTER → 2021-03-30 | Outpatient (CLI) | payer MEDICARE, BC, OTHER ==
--- NOTE | 2021-03-30 14:47 | US ---
EXAMINATION TYPE: US kidneys/renal and bladder DATE OF EXAM: 03/30/2021 COMPARISON: US CLINICAL HISTORY: CKD stage 4 N18.4. Renal cysts on prior US. EXAM MEASUREMENTS: Right Kidney: 10.5 x 3.9 x 5.2 cm Left Kidney: 9.5 x 3.8 x 3.9 cm Post Void Residual Volume: 1.8 mL Right Kidney: multiple renal cysts with largest at superior pole = 4.9 x 46 x 4.4cm and next largest mid pole = 3.6 x 4.0 x 4.3cm ; hyperechoic vessel wall calcifications are noted Left Kidney: multiple renal cysts with largest = 2.8 x 3.1 x 2.5cm; poor corticomedullary differentia tion is noted bilateral renal; hyperechoic vessel wall calcifications are seen Bladder: wnl Bilateral Jets seen: no only right ureteral jet was seen within 3 minute observation Normal Post Void Residual: Yes There is no evidence for hydronephrosis at this point in time. No nephrolithiasis is seen. The urin ana bladder is anechoic. IMPRESSION: 1. Bilateral renal cysts. 2. Suspected vascular calcifications within the bilateral kidneys
== END | disposition home or self-care (01) ==
LOC: RADUSWWP 13:37
PROVIDERS: ATTEND Internal Medicine Nephrology
DX: N28.1 Cyst of kidney, acquired (principal)
CPT/HCPCS: 76770

== ENCOUNTER → 2021-07-01 | Outpatient (CLI) | payer MEDICARE, BC, OTHER ==
--- NOTE | 2021-07-01 15:29 | CT ---
EXAMINATION TYPE: CT brain jennieine wo con DATE OF EXAM: 07/01/2021 COMPARISON: 11/03/2020 HISTORY: Aneurysm. Pt c/o falls and dizziness. CT DLP: 439.60 mGycm, Automated exposure control for dose reduction was used. CONTRAST: Patient injected with 0 mL of Isovue 300. CT of the brain is performed utilizing 3 mm thick sections through the posterior fossa and 3 mm thick sections through the remaining calvarium. Study is performed within 24 hours of arrival to the hospital. No abnormal hyperdensity is present to suggest an acute intracranial hemorrhage. No mass lesion is evident. No acute infarcts are evident. Patchy periventricular white matter ischemic-type changes. Ventricles and sulci are appropriate for the patient age. Paranasal sinuses and mastoid air cells within the [id number]-iapl are clear. IMPRESSIONS: 1. No acute intracranial process 2. Periventricular patchy hypodensity, likely on the basis of chronic white matter ischemic changes CT cervical spine. COMPARISON: None CT of the cervical spine is performed in the axial plane at 2 mm thick sections. Reconstructed image s in the coronal, and sagittal plane are reviewed on the computer. No acute fractures are evident. Vertebral body alignment is normal. Loss of disc height is evident C5-6 C6-7. Vertebral body heights are preserved. No spinal canal stenosis is evident. Posterior endplate spurring however is noted C5-6 mild anterior thecal sac compression. There is uncovertebral joint hypertrophy and facet hypertrophy at C2-C3 on the left contributing to s evere left foraminal stenosis. Uncovertebral joint hypertrophy and facet hypertrophy is contributing to mild right and moderate left foraminal stenosis seen for. Uncovertebral joint hypertrophy at C5-6 and C6-7 has moderate bilateral foraminal stenosis. IMPRESSIONS: 1. Degenerative disc changes and foraminal stenosis discussed above. This is greater in the lower cer vical spine.
== END | disposition home or self-care (01) ==
LOC: RADCTMAIN 14:37
PROVIDERS: ATTEND Family Medicine
DX: I67.1 Cerebral aneurysm, nonruptured (principal)
CPT/HCPCS: 70450; 72125

== ENCOUNTER → 2021-07-16 | Outpatient (CLI) | payer MEDICARE, BC, OTHER ==
[2021-07-16 23:32] LABS: Basophils # (A) 0.03 X 10*3/uL (0.00-0.10); Basophils % (A) 0.2 %; Eosinophils # (A) 0.05 X 10*3/uL (0.04-0.35); Eosinophils % (A) 0.4 %; HCT 32.1 % (37.2-46.3); HGB 9.9 g/dL (12.0-15.0); Lymphocytes # (A) 1.42 X 10*3/uL (0.90-5.00); Lymphocytes % (A) 11.7 %; MCH 29.8 pg (27.0-32.0); MCHC 30.8 g/dL (32.0-37.0); MCV 96.7 fL (80.0-97.0); Mean Platelet Volume 12.3 fL (9.5-12.2); Monocytes # (A) 0.97 X 10*3/uL (0.20-1.00); Neutrophils # (A) 9.54 X 10*3/uL (1.80-7.70); Neutrophils % (A) 78.7 %; Platelet Count 240 X 10*3/uL (140-440); RBC 3.32 X 10*6/uL (4.10-5.20); RDW 14.7 % (11.5-14.5); WBC 12.13 X 10*3/uL (4.50-10.00)
[2021-07-17 13:18] LABS: % Iron Saturation 32.32 (12.00-45.00)
[2021-07-17 13:30] LABS: Ferritin 42.1 ng/mL (10.0-291.0)
== END | disposition home or self-care (01) ==
LOC: LABWHC1 13:38
PROVIDERS: ATTEND Psychiatry & Neurology Pain Medicine
DX: N18.4 Chronic kidney disease, stage 4 (severe) (principal); D64.9 Anemia, unspecified; H53.9 Unspecified visual disturbance
CPT/HCPCS: 36415; 82728; 83540; 83550; 85025

== ENCOUNTER 2021-08-21 20:18 | Emergency (ER) | payer MEDICARE, BC, OTHER ==
[2021-08-21 20:56] VITALS: BP 150/70; PULSE 72; RESP 20; TEMP 98.3
--- NOTE | 2021-08-21 23:02 | ED ---
Fall HPI - General Chief Complaint: Fall Stated Complaint: Fall Time Seen by Provider: 08/21/21 22:23 Source: patient Mode of arrival: ambulatory - History of Present Illness Initial Comments: 76-year-old female presents to the emergency department with a chief complaint of a fall. Patient reports she has a. States she has seen multiple specialists and they have run many test but they have not derived to a final diagnosis. Patient states today she was carrying some popcorn and fell to the ground but denies any loss of consciousness. States that she did hit her head but denies significant signs of trauma to the head. States her biggest complaint is on the left elbow where she has developed multiple regions of bruising but she has full range of motion and denies any weakness or paresthesias in the left arm. Patient is on Plavix. - Related Data Home Medications Medication Instructions Recorded Confirmed Atorvastatin [Lipitor] 40 mg PO DAILY 07/27/20 03/11/21 Dicyclomine [Bentyl] 10 mg PO BID 07/27/20 03/11/21 Lisinopril-Hctz 20-25 mg 0.5 tab PO QAM 07/27/20 03/11/21 [Zestoretic 20-25] Magnesium Oxide [Mag-Ox] 400 mg PO DAILY 07/27/20 03/11/21 Venlafaxine HCl [Effexor XR] 150 mg PO DAILY 07/27/20 03/11/21 allopurinoL [Zyloprim] 100 mg PO BID 07/27/20 03/11/21 calcitrioL [Calcitriol] 0.25 mcg PO MO 07/27/20 03/11/21 traMADol HCL [Ultram] 50 mg PO BID 07/27/20 03/11/21 Cholecalciferol (Vitamin D3) 125 mcg PO Q14D 07/30/20 03/11/21 [Vitamin D3] Clopidogrel Bisulfate [Plavix] 75 mg PO HS 03/08/21 03/11/21 Famotidine [Pepcid] 20 mg PO BID 03/08/21 03/11/21 Fexofenadine/Pseudoephedrine 1 each PO DAILY 03/08/21 03/11/21 [Maggie-D 24 Hour Tablet] Montelukast Sodium [Singulair] 10 mg PO HS 03/08/21 03/11/21 Psyllium Husk (with Sugar) 1 applicate PO DAILY 03/08/21 03/11/21 [Metamucil Powder] Triamcinolone Acetonide [Nasacort] 1 spray EA NOSTRIL DAILY PRN 03/08/21 03/11/21 cycloSPORINE [Restasis] 1 applicator BOTH EYES BID 03/08/21 03/11/21 Allergies Allergy/AdvReac Type Severity Reaction Status Date / Time ciprofloxacin [From Cipro] Allergy "so weak I Verified 08/21/21 20:56 couldn't stand up" codeine Allergy Unknown Verified 08/21/21 20:56 levofloxacin [From Levaquin] Allergy "so weak I Verified 08/21/21 20:56 couldn't even stand up" Penicillins Allergy Rash/Hives Verified 08/21/21 20:56 Sulfa (Sulfonamide Allergy Unknown Verified 08/21/21 20:56 Antibiotics) Childhood diphenhydramine AdvReac "have Verified 08/21/21 20:56 opposite reaction, high energy for 3 days" tree,mold Allergy Unknown Uncoded 08/21/21 20:56 Review of Systems ROS Statement: Those systems with pertinent positive or pertinent negative responses have been documented in the HPI. ROS Other: All systems not noted in ROS Statement are negative. Past Medical History Past Medical History: GERD/Reflux, Hyperlipidemia, Hypertension, Osteoarthritis (OA), Renal Disease Additional Past Medical History / Comment(s): hx of gout, states stage 4 renal disease, brain aneurysm x 2, see Dr Sow H&P, told TIA's- no residual refects, varicose veins, "bad sinus problems", hx bleeding ulcer, constipation, History of Any Multi-Drug Resistant Organisms: None Reported Past Surgical History: Heart Catheterization, Hernia Repair, Hysterectomy, Tonsillectomy Additional Past Surgical History / Comment(s): maria del rosario cataracts, cyst removed left upper leg , maria del rosario great toe-spurs removed, Past Anesthesia/Blood Transfusion Reactions: No Reported Reaction Past Psychological History: No Psychological Hx Reported Smoking Status: Former smoker Past Alcohol Use History: None Reported Past Drug Use History: None Reported - Past Family History Mother Family Medical History: No Reported History General Exam Limitations: no limitations General appearance: alert, in no apparent distress Head exam: Present: atraumatic, normocephalic, normal inspection. Absent: other (Negative Nicholas sign, raccoon eyes, hemotympanum.) Eye exam: Present: normal appearance, PERRL, EOMI Pupils: Present: normal accommodation ENT exam: Present: normal exam, normal oropharynx, mucous membranes moist Neck exam: Present: normal inspection, full ROM. Absent: tenderness Respiratory exam: Present: normal lung sounds bilaterally. Absent: respiratory distress, wheezes, rales, rhonchi, stridor Cardiovascular Exam: Present: regular rate, normal rhythm, normal heart sounds. Absent: systolic murmur, diastolic murmur, rubs GI/Abdominal exam: Present: soft. Absent: distended, tenderness, guarding, rebound Extremities exam: Present: full ROM, tenderness (Tenderness over the left elbow), normal capillary refill, other (Palpable ulnar and radial pulses bilaterally. Sensation intact in the left arm). Absent: normal inspection (Multiple region of ecchymosis over the left elbow), pedal edema, joint swelling, calf tenderness Back exam: Present: normal inspection, full ROM. Absent: tenderness Neurological exam: Present: alert, oriented X3 Psychiatric exam: Present: normal affect, normal mood Skin exam: Present: warm, dry, intact, normal color Course Vital Signs 08/21/21 20:51 Temperature 98.3 F Pulse Rate 72 Respiratory 20 Rate Blood Pressure 150/70 O2 Sat by Pulse 99 Oximetry Medical Decision Making - Medical Decision Making 76-year-old female presents to the emergency department with a chief complaint of a fall. On physical examination, patient is well-appearing. Hematoma left elbow noted. No acute injuries to the head. CT of the brain and C-spine is unremarkable. X-ray of the left elbow shows no acute findings. Patient advised to apply warm compresses to the hematomas. I offered laboratory work, she declined. Return parameters were discussed with patient was up standing agreeable. Case discussed physician. Disposition Clinical Impression: Fall, Traumatic hematoma of elbow Disposition: HOME SELF-CARE Condition: Stable Instructions (If sedation given, give patient instructions): Fall Prevention (ED), Hematoma (ED) Additional Instructions: Please return to the Emergency Department if symptoms worsen or any other concerns. Is patient prescribed a controlled substance at d/c from ED?: No Referrals: Marcus Solis DO [Primary Care Provider] - 1-2 days Time of Disposition: 23:39
--- NOTE | 2021-08-21 23:22 | CT ---
EXAMINATION TYPE: CT brain cspine wo con DATE OF EXAM: 08/21/2021 COMPARISON: 07/01/2021 HISTORY: Fall CT DLP: 1309.5 mGycm Automated exposure control for dose reduction was used. Ventricles have normal size. There is hypodensity in the periventricular white matter consistent with chronic small vessel ischemia. There is mild cerebral atrophy. There is no midline shift. There is n o sign of intracranial hemorrhage. Cervical vertebra have normal alignment. There is degenerative disc space narrowing at C5-6 and C6-7 with spur formation. Prevertebral soft tissues are intact. Facet joints are intact. IMPRESSION: Cerebral atrophy and chronic small vessel ischemia without change compared to old exam. Cervical spondylotic changes in the lower cervical spine. No fracture.
--- NOTE | 2021-08-21 23:26 | XR ---
EXAMINATION TYPE: XR elbow complete LT DATE OF EXAM: 08/21/2021 COMPARISON: NONE HISTORY: Pain TECHNIQUE: 3 views FINDINGS: There is posterior soft tissue swelling at the distal humerus. I see no fracture nor disloc ation. There is also soft tissue swelling over the posterior proximal ulna. There is no evidence of j oint effusion. IMPRESSION: Soft tissue swelling. No fracture seen.
== END 2021-08-21 23:50 | disposition home or self-care (01) ==
LOC: EC 20:18
DX: S50.02XA Contusion of left elbow, initial encounter (principal); I10 Essential (primary) hypertension; K21.9 Gastro-esophageal reflux disease without esophagitis; M19.90 Unspecified osteoarthritis, unspecified site; E78.5 Hyperlipidemia, unspecified; Z87.891 Personal history of nicotine dependence; Z88.1 Allergy status to other antibiotic agents; Z88.5 Allergy status to narcotic agent; Z88.0 Allergy status to penicillin; Z88.2 Allergy status to sulfonamides; Z88.8 Allergy status to other drugs, medicaments and biological substances; Z91.09 Other allergy status, other than to drugs and biological substances; Z79.899 Other long term (current) drug therapy; W18.30XA Fall on same level, unspecified, initial encounter; Y92.89 Other specified places as the place of occurrence of the external cause
CPT/HCPCS: 70450; 72125; 99284

== ENCOUNTER → 2021-12-22 | Outpatient (CLI) | payer MEDICARE, BC, OTHER ==
--- NOTE | 2021-12-27 09:17 | MM ---
Reason for exam: clinical finding. Last mammogram was performed 1 year and 4 months ago. History: Patient is postmenopausal. Benign cyst aspiration of the right breast. Physical Findings: Nurse did not find any significant physical abnormalities on exam. MG 3D Diag Mammo W/Cad BETTINA Bilateral CC and MLO view(s) were taken. Prior study comparison: September 02, 2020, bilateral MG 3d screening mammo w/cad. July 08, 2019, bilateral MG 3d screening mammo w/cad. The breast tissue is heterogeneously dense. This may lower the sensitivity of mammography. There is no discrete abnormality. No significant new findings when compared with previous films. These results were verbally communicated with the patient and result sheet given to the patient on 12/22/21. ASSESSMENT: Negative, BI-RAD 1 RECOMMENDATION: Routine screening mammogram of both breasts in 1 year.
== END | disposition home or self-care (01) ==
LOC: RADMAMWWP 14:48
PROVIDERS: ATTEND Family Medicine
DX: N64.4 Mastodynia (principal)
CPT/HCPCS: 77066; G0279; 77062

== ENCOUNTER 2022-02-24 13:32 | Emergency (ER) | payer MEDICARE, BC, OTHER ==
[2022-02-24 13:38] VITALS: RESP 18; TEMP 98
[2022-02-24] MEDS ORDERED: SODIUM CHLORIDE 0.9% 500 ML 500 ML IV STA (15:14)
[2022-02-24] MEDS ORDERED: fentaNYL (PF) 50 MCG/ML 2 ML AMP IVP STA (15:20)
--- NOTE | 2022-02-24 15:23 | ED ---
General Adult HPI - General Chief complaint: Syncope Stated complaint: clavicle issues Time Seen by Provider: 02/24/22 15:05 Source: patient, family (spouse), RN notes reviewed, old records reviewed Mode of arrival: wheelchair Limitations: no limitations - History of Present Illness Initial comments: This is a pleasant 76-year-old female that presents with her spouse with complaints of right clavicle pain after falling out of bed on Monday. She is ta patrica Plavix but denies hitting her head. was sleeping next to her was able to get her up into the bed. Patient was seen by her primary care doctor and sent to the emergency room for evaluation of right shoulder. While in the waiting room patient was sitting in the wheelchair and had a near syncopal episode. She denies any chest pain or shortness of breath, no difficulty in breathing. She states she felt dizzy but did not pass out. She states the last thing she ate was cereal this morning. She states that the pain in her shoulder is 9 out of 10 and has been having difficulty moving her right arm. -: days(s) (4) Location: right, upper extremity (clavicle) Severity scale (1-10): 9 Quality: sharp, constant Consistency: constant Improves with: immobilization Worsens with: movement Associated Symptoms: other (near syncope in waiting room today) Treatments Prior to Arrival: none - Related Data Home Medications Medication Instructions Recorded Confirmed Atorvastatin [Lipitor] 40 mg PO DAILY 07/27/20 03/11/21 Dicyclomine [Bentyl] 10 mg PO BID 07/27/20 03/11/21 Lisinopril-Hctz 20-25 mg 0.5 tab PO QAM 07/27/20 03/11/21 [Zestoretic 20-25] Magnesium Oxide [Mag-Ox] 400 mg PO DAILY 07/27/20 03/11/21 Venlafaxine HCl [Effexor XR] 150 mg PO DAILY 07/27/20 03/11/21 allopurinoL [Zyloprim] 100 mg PO BID 07/27/20 03/11/21 calcitrioL [Calcitriol] 0.25 mcg PO MO 07/27/20 03/11/21 traMADol HCL [Ultram] 50 mg PO BID 07/27/20 03/11/21 Cholecalciferol (Vitamin D3) 125 mcg PO Q14D 07/30/20 03/11/21 [Vitamin D3] Clopidogrel Bisulfate [Plavix] 75 mg PO HS 03/08/21 03/11/21 Famotidine [Pepcid] 20 mg PO BID 03/08/21 03/11/21 Fexofenadine/Pseudoephedrine 1 each PO DAILY 03/08/21 03/11/21 [Maggie-D 24 Hour Tablet] Montelukast Sodium [Singulair] 10 mg PO HS 03/08/21 03/11/21 Psyllium Husk (with Sugar) 1 applicate PO DAILY 03/08/21 03/11/21 [Metamucil Powder] Triamcinolone Acetonide [Nasacort] 1 spray EA NOSTRIL DAILY PRN 03/08/21 03/11/21 cycloSPORINE [Restasis] 1 applicator BOTH EYES BID 03/08/21 03/11/21 Previous Rx's Medication Instructions Recorded Lidocaine 5% Patch [Lidoderm] 1 patch TOPICAL DAILY 10 Days #10 02/24/22 patch Allergies Allergy/AdvReac Type Severity Reaction Status Date / Time ciprofloxacin [From Cipro] Allergy "so weak I Verified 02/24/22 13:34 couldn't stand up" codeine Allergy Unknown Verified 02/24/22 13:34 levofloxacin [From Levaquin] Allergy "so weak I Verified 02/24/22 13:34 couldn't even stand up" Penicillins Allergy Rash/Hives Verified 02/24/22 13:34 Sulfa (Sulfonamide Allergy Unknown Verified 02/24/22 13:34 Antibiotics) Childhood diphenhydramine AdvReac "have Verified 02/24/22 13:34 opposite reaction, high energy for 3 days" tree,mold Allergy Unknown Uncoded 02/24/22 13:34 Review of Systems ROS Statement: Those systems with pertinent positive or pertinent negative responses have been documented in the HPI. ROS Other: All systems not noted in ROS Statement are negative. Past Medical History Past Medical History: GERD/Reflux, Hyperlipidemia, Hypertension, Osteoarthritis (OA), Renal Disease Additional Past Medical History / Comment(s): hx of gout, states stage 4 renal disease, brain aneurysm x 2, see Dr Sow H&P, told TIA's- no residual refects, varicose veins, "bad sinus problems", hx bleeding ulcer, constipation, History of Any Multi-Drug Resistant Organisms: None Reported Past Surgical History: Heart Catheterization, Hernia Repair, Hysterectomy, Tonsillectomy Additional Past Surgical History / Comment(s): maria del rosario cataracts, cyst removed left upper leg , maria del rosario great toe-spurs removed, Past Anesthesia/Blood Transfusion Reactions: No Reported Reaction Past Psychological History: No Psychological Hx Reported Smoking Status: Former smoker Past Alcohol Use History: None Reported Past Drug Use History: None Reported - Past Family History Mother Family Medical History: No Reported History General Exam Limitations: no limitations General appearance: alert, in no apparent distress Head exam: Present: atraumatic, normocephalic, normal inspection Eye exam: Present: normal appearance. Absent: scleral icterus, conjunctival injection, periorbital swelling ENT exam: Present: normal exam, normal oropharynx, mucous membranes moist Neck exam: Present: normal inspection, full ROM, other (left inner cheek 2mm hem atoma). Absent: tenderness, meningismus, lymphadenopathy, thyromegaly Respiratory exam: Present: normal lung sounds bilaterally. Absent: respiratory distress, accessory muscle use Cardiovascular Exam: Present: regular rate, normal rhythm GI/Abdominal exam: Present: soft. Absent: distended, tenderness, guarding, rebound, rigid Extremities exam: Present: normal capillary refill. Absent: pedal edema Back exam: Present: normal inspection, full ROM. Absent: tenderness, CVA tenderness (R), CVA tenderness (L), rash noted Neurological exam: Present: alert, oriented X3 Expanded Patient oriented to: Present: person, place, time Speech: Present: fluid speech Cranial nerves: Gag Reflex: Normal, Tongue Deviation: Normal Eye Response: (4) open spontaneously Motor Response: (6) obeys commands Verbal Response: (5) oriented [place] Total: 15 Psychiatric exam: Present: normal affect, normal mood Skin exam: Present: warm, dry, other (Ecchymosis right chest wall and clavicle). Absent: rash, cyanosis, diaphoretic Course Vital Signs 02/24/22 02/24/22 02/24/22 13:34 15:41 16:48 Temperature 98 F Pulse Rate 68 79 80 Respiratory 18 18 18 Rate Blood Pressure 118/64 150/91 160/91 O2 Sat by Pulse 96 97 96 Oximetry EKG Findings - EKG Results: EKG: sinus rhythm (Ventricular rate of 65, TN interval 0.179, QRS 0.90, QTC 0.407) Medical Decision Making - Medical Decision Making 76-year-old female fell out of bed on Monday landing on her right shoulder. Chest x-ray shows a minimally offset fracture of the right lateral fifth rib wi th soft tissue swelling. There is also a transverse fracture of the right mid clavicular shaft with inferior displacement and [id number] degenerative changes in the right AC joint. Right humerus shows an impacted anteriorly displaced angulated fracture of the surgical neck of the humerus. There seems to be some bony bridging this fracture site and associated moderate to severe degenerative change. No humeral shaft fracture noted. Patient is neurovascularly intact. She is on Plavix did not hit her head. There is no evidence of head trauma. She is alert and oriented x 4. is at bedside. CBC shows slight leukocytosis likely from injury. BUN and creatinine are elevated slightly worse compared to labs dated September 2020. EKG shows sinus rhythm with ventricular rate of 65 and troponin negative at 0.012. Magnesium is elevated at 2.7. She was advised to stop taking her Mag-Ox at home and discuss her lab results with her primary care doctor next week. I did speak with Awilda with orthopedics who suggested patient be placed in a sling and follow-up in the office with Dr. Short next week. She was also prescribed Lidoderm patches today in addition to her previously prescribed tramadol for pain. Case discussed with Dr. Braswell. Patient is agreeable to this plan of care - Lab Data Result diagrams: 02/24/22 15:27 02/24/22 15:27 Lab Results 02/24/22 02/24/22 02/24/22 Range/Units 15:27 15:27 15:27 WBC 12.3 H (3.8-10.6) k/uL RBC 4.14 (3.80-5.40) m/uL Hgb 12.1 (11.4-16.0) gm/dL Hct 38.6 (34.0-46.0) % MCV 93.3 (80.0-100.0) fL MCH 29.3 (25.0-35.0) pg MCHC 31.4 (31.0-37.0) g/dL RDW 14.0 (11.5-15.5) % Plt Count 250 (150-450) k/uL MPV 9.2 Neutrophils % 84 % Lymphocytes % 8 % Monocytes % 5 % Eosinophils % 2 % Basophils % 1 % Neutrophils # 10.3 H (1.3-7.7) k/uL Lymphocytes # 1.0 (1.0-4.8) k/uL Monocytes # 0.7 (0-1.0) k/uL Eosinophils # 0.2 (0-0.7) k/uL Basophils # 0.1 (0-0.2) k/uL PT 10.1 (9.0-12.0) sec INR 0.9 (<1.2) APTT 22.4 (22.0-30.0) sec Sodium 134 L (137-145) mmol/L Potassium 4.9 (3.5-5.1) mmol/L Chloride 103 (98-107) mmol/L Carbon Dioxide 20 L (22-30) mmol/L Anion Gap 11 mmol/L BUN 50 H (7-17) mg/dL Creatinine 2.89 H (0.52-1.04) mg/dL Est GFR (CKD-EPI)AfAm 18 (>60 ml/min/1.73 sqM) Est GFR (CKD-EPI)NonAf 15 (>60 ml/min/1.73 sqM) Glucose 103 H (74-99) mg/dL Calcium 9.7 (8.4-10.2) mg/dL Magnesium 2.7 H (1.6-2.3) mg/dL Total Bilirubin 0.5 (0.2-1.3) mg/dL AST 19 (14-36) U/L ALT 16 (4-34) U/L Alkaline Phosphatase 79 (38-126) U/L Troponin I (0.000-0.034) ng/mL Total Protein 7.1 (6.3-8.2) g/dL Albumin 4.3 (3.5-5.0) g/dL Urine Color Urine Appearance (Clear) Urine pH (5.0-8.0) Ur Specific [place] (1.001-1.035) Urine Protein (Negative) Urine Glucose (UA) (Negative) Urine Ketones (Negative) Urine Blood (Negative) Urine Nitrite (Negative) Urine Bilirubin (Negative) Urine Urobilinogen (<2.0) mg/dL Ur Leukocyte Esterase (Negative) Urine RBC (0-5) /hpf Urine WBC (0-5) /hpf Urine Mucus (None) /hpf 02/24/22 02/24/22 Range/Units 15:27 16:50 WBC (3.8-10.6) k/uL RBC (3.80-5.40) m/uL Hgb (11.4-16.0) gm/dL Hct (34.0-46.0) % MCV (80.0-100.0) fL MCH (25.0-35.0) pg MCHC (31.0-37.0) g/dL RDW (11.5-15.5) % Plt Count (150-450) k/uL MPV Neutrophils % % Lymphocytes % % Monocytes % % Eosinophils % % Basophils % % Neutrophils # (1.3-7.7) k/uL Lymphocytes # (1.0-4.8) k/uL Monocytes # (0-1.0) k/uL Eosinophils # (0-0.7) k/uL Basophils # (0-0.2) k/uL PT (9.0-12.0) sec INR (<1.2) APTT (22.0-30.0) sec Sodium (137-145) mmol/L Potassium (3.5-5.1) mmol/L Chloride (98-107) mmol/L Carbon Dioxide (22-30) mmol/L Anion Gap mmol/L BUN (7-17) mg/dL Creatinine (0.52-1.04) mg/dL Est GFR (CKD-EPI)AfAm (>60 ml/min/1.73 sqM) Est GFR (CKD-EPI)NonAf (>60 ml/min/1.73 sqM) Glucose (74-99) mg/dL Calcium (8.4-10.2) mg/dL Magnesium (1.6-2.3) mg/dL Total Bilirubin (0.2-1.3) mg/dL AST (14-36) U/L ALT (4-34) U/L Alkaline Phosphatase (38-126) U/L Troponin I <0.012 (0.000-0.034) ng/mL Total Protein (6.3-8.2) g/dL Albumin (3.5-5.0) g/dL Urine Color Yellow Urine Appearance Clear (Clear) Urine pH 6.5 (5.0-8.0) Ur Specific [place] 1.014 (1.001-1.035) Urine Protein 2+ H (Negative) Urine Glucose (UA) Negative (Negative) Urine Ketones Negative (Negative) Urine Blood Negative (Negative) Urine Nitrite Negative (Negative) Urine Bilirubin Negative (Negative) Urine Urobilinogen <2.0 (<2.0) mg/dL Ur Leukocyte Esterase Negative (Negative) Urine RBC 1 (0-5) /hpf Urine WBC 2 (0-5) /hpf Urine Mucus Rare H (None) /hpf Disposition Clinical Impression: Right clavicle fracture, Humerus surgical neck fracture, Rib fracture, Near syncope, Chronic kidney disease Disposition: HOME SELF-CARE Condition: Good Instructions (If sedation given, give patient instructions): Clavicle Fracture (ED), Arm Fracture in Adults (ED), Rib Fracture (ED) Additional Instructions: Wear sling and follow-up with orthopedics next week. Continue taking your tramadol for pain. You can also use the Lidoderm patches as prescribed. Take deep breaths and cough to prevent pneumonia at least once an hour. Stop taking your magnesium oxide until seen by her primary care doctor to discuss her magnesium levels. Also discuss your elevated kidney function tests. Return to the emergency room with a new or concerning symptoms including shortness of breath, chest pain, fevers or increased pain. Prescriptions: Lidocaine 5% Patch [Lidoderm] 1 patch TOPICAL DAILY 10 Days #10 patch Is patient prescribed a controlled substance at d/c from ED?: No Referrals: Marcus Solis DO [Primary Care Provider] - 1-2 days Kristine Short DO [Doctor of Osteopathic Medicine] - 1-2 days Time of Disposition: 17:18
[2022-02-24 15:38] LABS: Basophils # (A) 0.1 k/uL (0-0.2); Basophils % (A) 1 %; Eosinophils # (A) 0.2 k/uL (0-0.7); Eosinophils % (A) 2 %; HCT 38.6 % (34.0-46.0); HGB 12.1 gm/dL (11.4-16.0); Lymphocytes % (A) 8 %; MCH 29.3 pg (25.0-35.0); MCHC 31.4 g/dL (31.0-37.0); MCV 93.3 fL (80.0-100.0); Mean Platelet Volume 9.2; Monocytes # (A) 0.7 k/uL (0-1.0); Monocytes % (A) 5 %; Neutrophils # (A) 10.3 k/uL (1.3-7.7); Neutrophils % (A) 84 %; Platelet Count 250 k/uL (150-450); RBC 4.14 m/uL (3.80-5.40); WBC 12.3 k/uL (3.8-10.6)
[2022-02-24 15:51] LABS: Albumin 4.3 g/dL (3.5-5.0); Calcium 9.7 mg/dL (8.4-10.2); Magnesium 2.7 mg/dL (1.6-2.3); Potassium 4.9 mmol/L (3.5-5.1); Total Bilirubin 0.5 mg/dL (0.2-1.3); Total Protein 7.1 g/dL (6.3-8.2)
[2022-02-24 15:54] LABS: INR 0.9 (<1.2); Partial Thromboplastin Time 22.4 sec (22.0-30.0); Prothrombin Time 10.1 sec (9.0-12.0)
--- NOTE | 2022-02-24 15:55 | XR ---
EXAMINATION TYPE: XR chest 2V, XR clavicle 2 views RT, XR humerus 2 views RT DATE OF EXAM: 02/24/2022 COMPARISON: None HISTORY: 76-year-old female syncope, pain after fall 3 days ago FINDINGS: Chest: The heart is borderline enlarged. Mild atherosclerotic arch calcifications. Mild hyperinflation. Some strandy atelectasis in the lower lungs. No pneumothorax seen. There is a minimally offset fracture o f the right lateral fifth rib. There may be some mild underlying pleural based soft tissue swelling o r effusion. Right clavicle: There is a transverse fracture of the mid right clavicular shaft with one shaft's width of inferior d isplacement. Mild to moderate degenerative change right AC joint. Right humerus: There is an impacted, anteriorly displaced, and anterior apex angulated fracture of the surgical neck of the humerus. There seems to be some bony bridging at this fracture site and associated moderate t o severe degenerative change of the glenohumeral joint. No elbow joint effusion. No humeral shaft fr acture. IMPRESSION: 1. Chest: Minimally offset fracture right lateral fifth rib. Some underlying pleural based soft tissu e swelling/hematoma versus trace effusion. 2. Right clavicle: Transverse fracture mid right clavicular shaft with one shaft's width of inferior displacement. 3. Right humerus: Marked deformity of the humeral head and an impacted surgical neck fracture. There seems to be bony bridging here and a chronic fracture deformity is favored. Clinically correlate. Ass ociated posttraumatic left glenohumeral joint OA.
[2022-02-24 16:48] VITALS: BP 160/91; PULSE 80
[2022-02-24 17:04] LABS: Appearance,Urine Clear (Clear); Bilirubin,Urine Negative (Negative); Blood,Urine Negative (Negative); Color,Urine Yellow; Glucose,Urine (UA) Negative (Negative); Ketones,Urine Negative (Negative); Leukocyte Esterase,Urine Negative (Negative); Mucus,Urine Rare /hpf; Nitrite,Urine Negative (Negative); PH, Urine 6.5 (5.0-8.0); Protein,Urine 2+ (Negative); RBC,Urine 1 /hpf (0-5); Specific Gravity,Urine 1.014 (1.001-1.035); Urobilinogen,Urine <2.0 mg/dL (<2.0); WBC,Urine 2 /hpf (0-5)
== END 2022-02-24 17:42 | disposition home or self-care (01) ==
LOC: EC 13:32
DX: Z87.891 Personal history of nicotine dependence (principal); S42.001A Fracture of unspecified part of right clavicle, initial encounter for closed fracture; S42.211A Unspecified displaced fracture of surgical neck of right humerus, initial encounter for closed fracture; S22.39XA Fracture of one rib, unspecified side, initial encounter for closed fracture; I10 Essential (primary) hypertension; N18.9 Chronic kidney disease, unspecified; Z88.0 Allergy status to penicillin; Z88.5 Allergy status to narcotic agent; Z88.2 Allergy status to sulfonamides; Z91.048 Other nonmedicinal substance allergy status; Z88.8 Allergy status to other drugs, medicaments and biological substances; Z88.1 Allergy status to other antibiotic agents; W06.XXXA Fall from bed, initial encounter
CPT/HCPCS: 36415; 93005; 80053; 83735; 84484; 85025; 85610; 85730; 81001; 73000; 73060; 71046; 99285; 96374; 96361; J3010

== ENCOUNTER → 2022-06-14 | Outpatient (CLI) | payer MEDICARE, BC, OTHER ==
--- NOTE | 2022-06-15 04:42 | MR ---
EXAMINATION TYPE: MR angio head/neck wo con DATE OF EXAM: 06/14/2022 COMPARISON: None HISTORY: Weakness. Stroke. MR angiographic images were obtained of the intracranial arteries. MR angiographic images were obtain ed of the neck. Exam performed with no contrast. FINDINGS: There is arterial flow in the anterior middle and posterior cerebral arteries. There is arterial flow the vertebrobasilar artery system. There is no mass effect. No evidence of intracranial aneurysm or neovascularity. No mass effect. No evidence of hemodynamic stenosis. The posterior cerebral arteries fill through the basilar artery. There is arterial flow in the common internal and external carotid arteries bilaterally. There is wid e patency of the carotid artery bifurcations. No evidence of stenosis. No sign of aneurysm or dissect ion. There is arterial flow in both vertebral arteries. Vertebral arteries appear widely patent. There is normal branching pattern of the great vessels on the aortic arch. IMPRESSION: Negative CT angiogram of the brain. Negative CT angiogram of the neck.
== END | disposition home or self-care (01) ==
LOC: RADMRIMAIN 14:03
PROVIDERS: ATTEND Psychiatry & Neurology Vascular Neurology
DX: Z86.73 Personal history of transient ischemic attack (TIA), and cerebral infarction without residual deficits (principal)
CPT/HCPCS: 70544; 70547

== ENCOUNTER → 2022-08-12 | Outpatient (CLI) | payer MEDICARE, BC, OTHER ==
--- NOTE | 2022-08-12 15:15 | US ---
EXAMINATION TYPE: US carotid duplex BILAT DATE OF EXAM: 08/12/2022 COMPARISON: 2019 CLINICAL HISTORY: G45.9 TIA. TECHNIQUE: Carotid duplex ultrasound examination. Indirect Doppler criteria was utilized. FINDINGS: EXAM MEASUREMENTS: RIGHT: Peak Systolic Velocity (PSV) cm/sec ----- Right CCA: 58.1 ----- Right ICA: 63.0 ----- Right ECA: 84.7 ICA/CCA ratio: 1.1 RIGHT: End Diastole cm/sec ----- Right CCA: 18.8 ----- Right ICA: 12.1 ----- Right ECA: 11.3 LEFT: Peak Systolic Velocity (PSV) cm/sec ----- Left CCA: 50.1 ----- Left ICA: 74.6 ----- Left ECA: 73.4 ICA/CCA ratio: 1.5 LEFT: End Diastole cm/sec ----- Left CCA: 9.8 ----- Left ICA: 21.9 ----- Left ECA: 11.1 VERTEBRALS (direction of flow): Right Vertebral: Antegrade Left Vertebral: Antegrade Rhythm: Arrhythmia No significant stenosis IMPRESSION: No significant flow-limiting stenosis. Criteria for Assigning % of Stenosis / Diameter reduction (Estimation based on the indirect measurements of the internal carotid artery velocities (ICA PSV). 1. Normal (no stenosis)=ICA PSV < 125 cm/s: ratio < 2.0: ICA EDV<40 cm/s. 2. Less than 50% stenosis=ICA PSV < 125 cm/s: ratio < 2.0: ICA EDV<40 cm/s. 3. 50 to 69% stenosis=ICA PSV of 125 to 230 cm/s: ration 2.0 ? 4.0: ICA EDV 40-100 cm/s. 4. Greater than 70% stenosis to near occlusion= ICA PSV > 230 cm/s: ratio > 4.0: ICA EDV > 100 cm/s. 5. Near occlusion= ICA PSV velocities may be low or undetectable: variable ratio and ICA EDV. 6. Total occlusion=unable to detect flow.
== END | disposition home or self-care (01) ==
LOC: RADUSWWP 14:44
PROVIDERS: ATTEND Psychiatry & Neurology Vascular Neurology
DX: I67.1 Cerebral aneurysm, nonruptured (principal); G45.9 Transient cerebral ischemic attack, unspecified
CPT/HCPCS: 93880

== ENCOUNTER → 2022-10-05 | Outpatient (CLI) | payer MEDICARE, BC, OTHER ==
--- NOTE | 2022-10-05 22:46 | EEG ---
ELECTROENCEPHALOGRAM REPORT CLINICAL HISTORY: This is a 77-year-old woman with reported syncopal episodes. The video EEG is obtained to evaluate for seizure epileptiform activity. RELEVANT MEDICATIONS: Unknown on the medical record. EEG-TYPE: A routine 21-channel EEG is performed with video using the 10/20 electrode placement system. DESCRIPTION: Wakefulness is only obtained. During awake state, the posterior-dominant rhythm consists of [id number] voltage of 8 to 8.5 hertz activity that is well modulated, well sustained. There is no physiological stage II architecture seen. There is no focal slowing. Interictal and ictal is none. ACTIVATION PROCEDURE: Photic stimulation did not evoke a posterior driving response. There is no abnormality during the photic stimulation. Hyperventilation is not performed. CLINICAL INTERPRETATION: This is a normal routine EEG during awake state. There is no focal slowing, epileptiform discharge, or seizure on the EEG. A normal routine EEG does not rule out underlying epilepsy. If there is still concerns for seizure, recommend prolonged EEG. Clinical correlation is recommended. WANDA / KENYA: [phone] / LINA
== END ==
LOC: NEUROMAIN 07:34
PROVIDERS: ATTEND Psychiatry & Neurology Vascular Neurology
DX: R29.90 Unspecified symptoms and signs involving the nervous system (principal); R55 Syncope and collapse; Z88.1 Allergy status to other antibiotic agents; Z88.5 Allergy status to narcotic agent; Z88.0 Allergy status to penicillin; Z91.048 Other nonmedicinal substance allergy status; Z88.8 Allergy status to other drugs, medicaments and biological substances
CPT/HCPCS: 95816

== ENCOUNTER → 2023-02-14 | Outpatient (CLI) | payer MEDICARE, BC, OTHER ==
--- NOTE | 2023-02-15 09:18 | MM ---
Reason for Exam: Screening (asymptomatic). Last mammogram was performed 1 year(s) and 2 month(s) ago. Patient History: Menarche at age 14. First Full-Term at age 20. Right ovary removed at age 31. Hysterectomy at age 31. Postmenopausal. Benign Cyst Aspiration on the right side. Risk Values: Korin 5 year model risk: 1.3%. NCI Lifetime model risk: 2.6%. Prior Study Comparison: 07/08/2019 Bilateral Screening Mammogram, [facility]. 09/02/2020 Bilateral Screening Mammogram, [facility]. 12/22/2021 Bilateral Diagnostic Mammogram, [facility]. Tissue Density: There are scattered fibroglandular densities. Findings: Analyzed By CAD. Benign-appearing vascular calcification in the bilateral breast is redemonstrated. There are benign-appearing bilateral axillary lymph nodes redemonstrated. There is no suspicious new group of microcalcifications or new suspicious mass in either breast. Overall Assessment: Benign, BI-RAD 2 Management: Screening Mammogram of both breasts in 1 year. A clinical breast exam by your physician is recommended on an annual basis and results should be correlated with mammographic findings. Electronically signed and approved by: Jerome Mathews M.D.
== END | disposition home or self-care (01) ==
LOC: RADMAMWWP 16:05
PROVIDERS: ATTEND Family Medicine
DX: Z12.31 Encounter for screening mammogram for malignant neoplasm of breast (principal); Z78.0 Asymptomatic menopausal state; Z98.890 Other specified postprocedural states
CPT/HCPCS: 77063; 77067

== ENCOUNTER 2023-03-02 11:05 | Day surgery (SDC) | payer MEDICARE, BC, OTHER ==
[2023-03-01 08:54] VITALS: BMI 27.8
[~2023-03-02 11:05] MED LIST changes: +ACETAMINOPHEN TAB 500 MG TAB PO PRN; +HEPARIN SODIUM,PORCINE/PF 5,000 UNIT/0.5 ML SYRINGE SQ PRN; +HYDROmorphone 0.5 MG/0.5 ML SYRINGE IVP PRN; +LACTATED RINGERS 1,000 ML IV SCH; -SODIUM CHLORIDE 0.9% 1,000 ML IV SCH
[2023-03-02] MEDS ORDERED: ONDANSETRON 4 MG/2 ML VIAL ONE (11:33)
[2023-03-02 11:42] VITALS: RESP 16; TEMP 98.7
[2023-03-02] MEDS ORDERED: SODIUM CHLORIDE 0.9% 1,000 ML IV ONE (11:58)
[2023-03-02] MEDS ORDERED: ONDANSETRON 4 MG/2 ML VIAL IVP ONE (11:59)
[2023-03-02] MEDS ORDERED: DEXAMETHASONE SOD PHOSPHATE 4 MG/ML 1 ML VIAL IVP ONE (12:00)
[2023-03-02] MEDS ORDERED: KETAMINE 10 MG/ML 20 ML VIAL ONE (12:22)
[2023-03-02] MEDS ORDERED: fentaNYL (PF) 50 MCG/ML 2 ML AMP ONE (12:22)
[2023-03-02] MEDS ORDERED: PROPOFOL 10 MG/ML 20 ML VIAL IV ONE (12:22)
[2023-03-02] MEDS ORDERED: MIDAZOLAM 2 MG/2 ML VIAL ONE (12:22)
[2023-03-02 12:33] LABS: Calcium 9.9 mg/dL (8.4-10.2); Potassium 4.5 mmol/L (3.5-5.1)
[2023-03-02] MEDS ORDERED: BUPIVACAINE (PF) 0.25% 30 ML VIAL SQ ONE (12:47)
[2023-03-02] MEDS ORDERED: HYDROmorphone 0.5 MG/0.5 ML SYRINGE IVP PRN (13:24)
[2023-03-02] MEDS ORDERED: NALOXONE 0.4 MG/ML 1 ML VIAL IV PRN (13:24)
[2023-03-02] MEDS ORDERED: traMADol 50 MG TAB PO PRN (13:24)
--- NOTE | 2023-03-02 13:25 | P.OP ---
Date of Procedure: 03/02/23 Procedure(s) Performed: PREOPERATIVE DIAGNOSIS: Renal failure POSTOPERATIVE DIAGNOSIS: Same PROCEDURE: Peritoneal dialysis catheter insertion SURGEON: Memo EBL: Minimal ANESTHESIA: Sedation plus local COMPLICATIONS: None OPERATIVE PROCEDURE: The patient was placed in the operative table in the supine position. The abdomen was prepped and draped in usual sterile fashion. A small horizontal incision was made in the right periumbilical location. Dissection down through the subcutaneous tissues took place using electrocautery. The anterior rectus was divided vertically using the scalpel. The rectus was bluntly. The posterior rectus was visualized. An 0 Vicryl pursestring was placed. A small opening in the posterior rectus fascia and peritoneum took place using a Metzenbaum scissors. There were no adhesions to the suture that was placed. The pigtail catheter was advanced into the pelvis over a stylette. No resistance was met. The inner cuff was secured to the fascia using the 0 Vicryl pursestring that was placed. The catheter was tunneled to an exit site in the right lateral lower quadrant. The catheter was connected to the 1 L bag of saline and approximated 800 mL of saline was easily introduced into the peritoneal cavity. The fluid was then allowed to evacuate. The majority of the fluid was returned. The anterior rectus fascia was then reapproximated using a running 0 Vicryl stitch. The subcutaneous tissues reprepped using 3-0 Vicryl sutures and the skin using 4-0 Monocryl sutures. The outpatient dialysis adapter was applied to the end of the catheter. Sterile dressings were then applied after skin glue was placed over the incision. DISPOSITION: Stable to recovery room
[2023-03-02] MEDS ORDERED: hydrALAZINE HCL 20 MG/ML 1 ML VIAL ONE (13:51)
[2023-03-02] MEDS ORDERED: hydrALAZINE HCL 20 MG/ML 1 ML VIAL IVP ONE (14:04)
[2023-03-02 14:42] VITALS: BP 167/76; PULSE 62
== END 2023-03-02 14:43 | disposition home or self-care (01) ==
LOC: OR 11:05
PROVIDERS: ATTEND Surgery
DX: N19 Unspecified kidney failure (principal); I10 Essential (primary) hypertension; E78.5 Hyperlipidemia, unspecified; Z88.2 Allergy status to sulfonamides; Z88.5 Allergy status to narcotic agent; Z88.0 Allergy status to penicillin; Z90.710 Acquired absence of both cervix and uterus; Z98.890 Other specified postprocedural states; Z82.49 Family history of ischemic heart disease and other diseases of the circulatory system; Z83.3 Family history of diabetes mellitus; Z79.899 Other long term (current) drug therapy
CPT/HCPCS: 80048; 49421; C1752; J2250; J0360; J1100; J0690; J2405; J3010; J2704; J1644

== ENCOUNTER 2023-06-12 20:48 | Inpatient (IN) | payer MEDICARE, BC, OTHER ==
[2023-06-12] MEDS ORDERED: IPRATROPIUM-ALBUTEROL 3 ML NEB INHALATION STA (20:52)
--- NOTE | 2023-06-12 20:54 | ED ---
SOB HPI - General Chief Complaint: Shortness of Breath Stated Complaint: Difficulty Breathing Time Seen by Provider: 06/12/23 20:52 Source: EMS, RN notes reviewed, old records reviewed Mode of arrival: EMS Limitations: no limitations - History of Present Illness Initial Comments: This is a 77 show female to the emergency department for evaluation. This patient presents today for evaluation regarding shortness of breath severe shortness of breath with chest pain. Patient is on peritonea dialysis with exchanges l. Patient states patient's dialysis has not been giving back the significant amount of fluid that the was trying to put in today. They're doing manual dialysis at home. Patient has severe shortness of breath with underlying history of COPD. Per EMS patient's oxygen was in the 60s on arrival. Patient's transfer to the ER on BiPAP in severe respiratory distress and unable to provide history or complaint of continuing severe hypoxia MD Complaint: shortness of breath, pain with inspiration, anxiety -: hour(s) Severity: severe Severity scale (1-10): 10 Consistency: constant Improves With: nothing Worsens With: nothing Context: recent illness Associated Symptoms: chest pain, pain with inspiration, cough Treatments Prior to Arrival: oxygen, bronchodilator, NIPPV - Related Data Home Oxygen Therapy: No Home Medications Medication Instructions Recorded Confirmed Atorvastatin [Lipitor] 40 mg PO PC-SUPPER 07/27/20 06/12/23 Venlafaxine HCl [Effexor XR] 150 mg PO DAILY 07/27/20 06/12/23 allopurinoL [Zyloprim] 100 mg PO PC-BID 07/27/20 06/12/23 calcitrioL [Calcitriol] 0.25 mcg PO MOWEFR 07/27/20 06/12/23 traMADol HCL [Ultram] 50 mg PO HS 07/27/20 06/12/23 cycloSPORINE [Restasis] 1 applicator BOTH EYES BID 03/08/21 06/12/23 Cyanocobalamin (Vitamin B-12) 1,000 mcg PO DAILY 03/01/23 06/12/23 [Vitamin B-12] Ergocalciferol [Vitamin D2 (1250 1,250 mcg PO MO 03/01/23 06/12/23 Mcg = 24647 Iu)] amLODIPine [Norvasc] 5 mg PO HS PRN 03/01/23 06/12/23 carvediloL 12.5 mg PO BID 03/01/23 06/12/23 Famotidine [Pepcid] 20 mg PO PC-BID 06/12/23 06/12/23 Folic Acid/Vit B Complex and C 0.8 mg PO HS 06/12/23 06/12/23 [Nephro Vitamins Tablet] Lactulose [Constulose] 20 gm PO BID PRN 06/12/23 06/12/23 Potassium Chloride ER [K-Dur 10] 10 meq PO DAILY 06/12/23 06/12/23 Torsemide [Demadex] 20 mg PO DAILY 06/12/23 06/12/23 Previous Rx's Medication Instructions Recorded Apixaban [Eliquis] 2.5 mg PO BID #60 tab 06/15/23 cefUROXime axetiL [Cefuroxime] 500 mg PO DAILY 7 Days #7 tab 06/17/23 Allergies Allergy/AdvReac Type Severity Reaction Status Date / Time ciprofloxacin [From Cipro] Allergy "so weak I Verified 06/12/23 21:37 couldn't stand up" codeine Allergy Unknown Verified 06/12/23 21:37 levofloxacin [From Levaquin] Allergy "so weak I Verified 06/12/23 21:37 couldn't even stand up" Penicillins Allergy Rash/Hives Verified 06/12/23 21:37 Sulfa (Sulfonamide Allergy Unknown Verified 06/12/23 21:37 Antibiotics) Childhood diphenhydramine AdvReac "have Verified 06/12/23 21:37 opposite reaction, high energy for 3 days" Review of Systems ROS Statement: Those systems with pertinent positive or pertinent negative responses have been documented in the HPI. ROS Other: All systems not noted in ROS Statement are negative. Past Medical History Past Medical History: GERD/Reflux, Hyperlipidemia, Hypertension, Osteoarthritis (OA), Renal Disease Additional Past Medical History / Comment(s): hx of gout, states stage 4 renal disease, brain aneurysm x 2, see Dr Magi Doan&Manas, told TIA's- no residual refects, varicose veins, "bad sinus problems", hx bleeding ulcer, constipation, History of Any Multi-Drug Resistant Organisms: None Reported Past Surgical History: Heart Catheterization, Hernia Repair, Hysterectomy, Tonsillectomy Additional Past Surgical History / Comment(s): maria del rosario cataracts, cyst removed left upper leg , maria del rosario great toe-spurs removed, Past Anesthesia/Blood Transfusion Reactions: No Reported Reaction Past Psychological History: No Psychological Hx Reported Smoking Status: Former smoker - Past Family History Mother Family Medical History: No Reported History General Exam Limitations: altered mental status General appearance: alert, anxious, in distress Head exam: Present: atraumatic, normocephalic, normal inspection Eye exam: Present: normal appearance, PERRL, EOMI. Absent: scleral icterus, conjunctival injection, periorbital swelling ENT exam: Present: normal exam, mucous membranes moist Neck exam: Present: normal inspection. Absent: tenderness, meningismus, lymphadenopathy Respiratory exam: Present: respiratory distress, wheezes, accessory muscle use, decreased breath sounds, prolonged expiratory. Absent: rales, rhonchi, stridor Cardiovascular Exam: Present: normal rhythm, tachycardia, normal heart sounds. Absent: systolic murmur, diastolic murmur, rubs, gallop, clicks GI/Abdominal exam: Present: soft, normal bowel sounds. Absent: distended, tenderness, guarding, rebound, rigid Extremities exam: Present: normal inspection, full ROM, normal capillary refill. Absent: tenderness, pedal edema, joint swelling, calf tenderness Back exam: Present: normal inspection Neurological exam: Present: alert, oriented X3, CN II-XII intact Psychiatric exam: Present: normal affect, normal mood Skin exam: Present: warm, dry, intact, normal color. Absent: rash Course Vital Signs 06/12/23 06/12/23 06/12/23 20:49 20:50 20:53 Temperature Pulse Rate 104 H 102 H Respiratory 28 H 32 H Rate Blood Pressure 158/115 182/100 O2 Sat by Pulse 94 L 97 Oximetry Fraction of 65 Inspired Oxygen (FIO2) 06/12/23 06/12/23 06/12/23 21:09 21:27 21:37 Temperature Pulse Rate 106 H 104 H Respiratory 34 H Rate Blood Pressure O2 Sat by Pulse Oximetry Fraction of Inspired Oxygen (FIO2) 06/12/23 06/12/23 06/12/23 21:38 21:52 21:53 Temperature Pulse Rate 104 H 105 H 104 H Respiratory 33 H Rate Blood Pressure 189/114 O2 Sat by Pulse 98 Oximetry Fraction of Inspired Oxygen (FIO2) 06/12/23 06/12/23 06/13/23 23:08 23:30 02:00 Temperature Pulse Rate 94 75 Respiratory 26 H 20 Rate Blood Pressure 148/89 110/66 O2 Sat by Pulse 100 96 Oximetry Fraction of 60 Inspired Oxygen (FIO2) 06/13/23 06/13/23 06/13/23 06:17 07:43 08:40 Temperature 97.9 F Pulse Rate 77 80 80 Respiratory 18 18 Rate Blood Pressure 154/76 157/84 O2 Sat by Pulse 94 L 94 L Oximetry Fraction of Inspired Oxygen (FIO2) 06/13/23 06/13/23 06/13/23 08:47 09:02 10:40 Temperature Pulse Rate 79 89 82 Respiratory 18 16 Rate Blood Pressure 168/79 135/65 O2 Sat by Pulse 95 94 L Oximetry Fraction of Inspired Oxygen (FIO2) 06/13/23 06/13/23 13:04 13:14 Temperature Pulse Rate 82 80 Respiratory Rate Blood Pressure O2 Sat by Pulse Oximetry Fraction of Inspired Oxygen (FIO2) - Reevaluation(s) Reevaluation #1: 06/12/23 23:15 Medical record is reviewed Patient maintained on BiPAP secondary severe distress and hypoxia Reevaluation #2: 06/12/23 23:15 Patient is in severe distress maintained on BiPAP 06/12/23 23:15 Patient has Thoracentesis secondary to severe pleural effusion with tracheal deviation and patient continued improvement Reevaluation #3: 06/12/23 23:15 Patient informed results and questions are answered Reevaluation #4: 06/12/23 23:15 Was pt. sent in by a medical professional or institution? @ -no Did you speak to anyone other than the patient for history? @ -no Did you review nursing and triage notes? @ -agree Were old charts reviewed? @ -yes Differential Diagnosis? @ -prior EKG interpreted by me (3pts min.)? @ -yes X-rays interpreted by me (1pt min.)? @ -yes CT interpreted by me (1pt min.)? @ -no U/S interpreted by me (1pt. min.)? @ -no What testing was considered but not performed? (CT, X-rays, U/S, labs)? Why? @ -no What meds were considered but not given? Why? @ -no Did you discuss the management of the patient with other professionals? @ -no Did you reconcile home meds? @ -no Was smoking cessation discussed for >3mins.? @ -no Was critical care preformed (if so, how long)? @ -no Were there social determinants of health that impacted care today? How? (Homelessness, low income, unemployed, alcoholism, drug addiction, tra nsportation, low edu. Level, literacy, decrease access to med. care, retirement, rehab)? @ -no Was there de-escalation of care discussed even if they declined? (Discuss DNR or withdrawal of care, Hospice)? @ -no What co-morbidities impacted this encounter? (DM, HTN, Smoking, COPD, CAD, Cancer, CVA, Hep., AIDS, mental health diagnosis, sleep apnea, morbid obesity)? @ -none Was patient admitted / discharged? @ -77 female in severe respiratory distress respiratory failure secondary to hypoxia complicated by COPD but severe right pleural effusion. Patient's family member was attempting. No dialysis and unsuccessful draining off any excess fluid. Patient did develop severe right sided pleural effusion which was therapeutically drained here in the emergency room patient had significant improvement and admitted for further evaluation monitoring with currently no evidence of reexpansion pulmonary edema Admitted Undiagnosed new problem with uncertain prognosis? @ -no Drug Therapy requiring intensive monitoring for toxicity (Heparin, Nitro, Insulin, Cardizem)? @ -no Were any procedures done? @ -no Diagnosis/symptom? @ -Right pleural effusion, COPD, restrictive failure Acute, or Chronic, or Acute on Chronic? @ -acute Uncomplicated (without systemic symptoms) or Complicated (systemic symptoms)? @ -complicated Side effects of treatment? @ -no Exacerbation, Progression, or Severe Exacerbation] @ -no Poses a threat to life or bodily function? @ -yes severe hypoxia from pleural effusion Reevaluation #5: 06/12/23 23:15 Differential Dyspnea: Coronary syndrome, arrhythmia, tamponade, asthma, COPD, pulmonary embolism, pneumonia, pneumothorax, pulmonary effusion, anaphylaxis, diabetic ketoacidosis, flailed chest, pulmonary contusion, diaphragmatic rupture, anemia, neuromuscular, this is not meant to be an all-inclusive list. 06/12/23 23:16 Differential Chest Pain: Stable Angina, Unstable Angina, STEMI, NSTEMI Aortic Dissection, Pneumothorax, Musculoskeletal, Esophageal Spasm GERD, Cholecystitis, Pancreatitis, Zoster, this is not meant to be an all-inclusive list. - Consultations Consultation #1: Spoke with [facility] regarding admission to agree to admit Consultation #2: Spoke with pulmonology who will evaluate patient in the emergency department Procedures - Chest Tube Insertion Consent Obtained: verbal consent Side of Procedure: right Indication: Pleural effusion Placed on monitor/pulse oximetry: Yes Site Prep: Povidone-Iodine Local Anesthesia: Lidocaine 1%, With Epi Insertion Site: Midaxillary Scalpel: #10 Returns: Other (Serous fluid) Sutured in Place: No (Catheter is removed after draining lung dry) Dressing Applied: Tape Attached to Suction: Yes Type of Suction: Pleuravac Repeat X-ray Results: Lung Inflated Patient Tolerated Procedure: well Complications: Other (Patient at 3.2 L of pleural effusion drained) Medical Decision Making - Medical Decision Making 77 female in severe respiratory distress respiratory failure secondary to hypoxia complicated by COPD but severe right pleural effusion. Patient's family member was attempting. No dialysis and unsuccessful draining off any excess fluid. Patient did develop severe right sided pleural effusion which was therapeutically drained here in the emergency room patient had significant improvement and admitted for further evaluation monitoring with currently no evidence of reexpansion pulmonary edema - Lab Data Result diagrams: 06/17/23 06:42 06/17/23 06:42 Lab Results 06/12/23 06/12/23 06/12/23 Range/Units 20:54 20:54 20:54 WBC 15.6 H (3.8-10.6) k/uL RBC 3.94 (3.80-5.40) m/uL Hgb 11.5 (11.4-16.0) gm/dL Hct 36.5 (34.0-46.0) % MCV 92.5 (80.0-100.0) fL MCH 29.2 (25.0-35.0) pg MCHC 31.6 (31.0-37.0) g/dL RDW 17.7 H (11.5-15.5) % Plt Count 255 (150-450) k/uL MPV 9.3 Neutrophils % 72 % Lymphocytes % 21 % Monocytes % 4 % Eosinophils % 1 % Basophils % 0 % Neutrophils # 11.3 H (1.3-7.7) k/uL Lymphocytes # 3.3 (1.0-4.8) k/uL Monocytes # 0.6 (0-1.0) k/uL Eosinophils # 0.2 (0-0.7) k/uL Basophils # 0.0 (0-0.2) k/uL Hypochromasia Slight Anisocytosis Slight PT 9.8 (9.0-12.0) sec INR 0.9 (<1.2) APTT 19.9 L (22.0-30.0) sec Sodium 133 L (137-145) mmol/L Potassium 3.8 (3.5-5.1) mmol/L Chloride 96 L (98-107) mmol/L Carbon Dioxide 23 (22-30) mmol/L Anion Gap 14 mmol/L BUN 39 H (7-17) mg/dL Creatinine 3.58 H (0.52-1.04) mg/dL Est GFR (CKD-EPI)AfAm 14 (>60 ml/min/1.73 sqM) Est GFR (CKD-EPI)NonAf 12 (>60 ml/min/1.73 sqM) Glucose 282 H (74-99) mg/dL Lactic Ac Sepsis Rflx Plasma Lactic Acid Rob (0.7-2.0) mmol/L Calcium 9.5 (8.4-10.2) mg/dL Phosphorus 5.8 H (2.5-4.5) mg/dL Magnesium 1.8 (1.6-2.3) mg/dL Total Bilirubin 0.7 (0.2-1.3) mg/dL AST 33 (14-36) U/L ALT 23 (4-34) U/L Alkaline Phosphatase 89 (38-126) U/L Troponin I (0.000-0.034) ng/mL NT-Pro-B Natriuret Pep pg/mL Total Protein 6.9 (6.3-8.2) g/dL Albumin 4.2 (3.5-5.0) g/dL 06/12/23 06/12/23 06/12/23 Range/Units 20:54 20:54 20:54 WBC (3.8-10.6) k/uL RBC (3.80-5.40) m/uL Hgb (11.4-16.0) gm/dL Hct (34.0-46.0) % MCV (80.0-100.0) fL MCH (25.0-35.0) pg MCHC (31.0-37.0) g/dL RDW (11.5-15.5) % Plt Count (150-450) k/uL MPV Neutrophils % % Lymphocytes % % Monocytes % % Eosinophils % % Basophils % % Neutrophils # (1.3-7.7) k/uL Lymphocytes # (1.0-4.8) k/uL Monocytes # (0-1.0) k/uL Eosinophils # (0-0.7) k/uL Basophils # (0-0.2) k/uL Hypochromasia Anisocytosis PT (9.0-12.0) sec INR (<1.2) APTT (22.0-30.0) sec Sodium (137-145) mmol/L Potassium (3.5-5.1) mmol/L Chloride (98-107) mmol/L Carbon Dioxide (22-30) mmol/L Anion Gap mmol/L BUN (7-17) mg/dL Creatinine (0.52-1.04) mg/dL Est GFR (CKD-EPI)AfAm (>60 ml/min/1.73 sqM) Est GFR (CKD-EPI)NonAf (>60 ml/min/1.73 sqM) Glucose (74-99) mg/dL Lactic Ac Sepsis Rflx Plasma Lactic Acid Rob 4.4 H* (0.7-2.0) mmol/L Calcium (8.4-10.2) mg/dL Phosphorus (2.5-4.5) mg/dL Magnesium (1.6-2.3) mg/dL Total Bilirubin (0.2-1.3) mg/dL AST (14-36) U/L ALT (4-34) U/L Alkaline Phosphatase (38-126) U/L Troponin I 0.014 (0.000-0.034) ng/mL NT-Pro-B Natriuret Pep 3090 pg/mL Total Protein (6.3-8.2) g/dL Albumin (3.5-5.0) g/dL 06/12/23 Range/Units 21:26 WBC (3.8-10.6) k/uL RBC (3.80-5.40) m/uL Hgb (11.4-16.0) gm/dL Hct (34.0-46.0) % MCV (80.0-100.0) fL MCH (25.0-35.0) pg MCHC (31.0-37.0) g/dL RDW (11.5-15.5) % Plt Count (150-450) k/uL MPV Neutrophils % % Lymphocytes % % Monocytes % % Eosinophils % % Basophils % % Neutrophils # (1.3-7.7) k/uL Lymphocytes # (1.0-4.8) k/uL Monocytes # (0-1.0) k/uL Eosinophils # (0-0.7) k/uL Basophils # (0-0.2) k/uL Hypochromasia Anisocytosis PT (9.0-12.0) sec INR (<1.2) APTT (22.0-30.0) sec Sodium (137-145) mmol/L Potassium (3.5-5.1) mmol/L Chloride (98-107) mmol/L Carbon Dioxide (22-30) mmol/L Anion Gap mmol/L BUN (7-17) mg/dL Creatinine (0.52-1.04) mg/dL Est GFR (CKD-EPI)AfAm (>60 ml/min/1.73 sqM) Est GFR (CKD-EPI)NonAf (>60 ml/min/1.73 sqM) Glucose (74-99) mg/dL Lactic Ac Sepsis Rflx Y Plasma Lactic Acid Rob (0.7-2.0) mmol/L Calcium (8.4-10.2) mg/dL Phosphorus (2.5-4.5) mg/dL Magnesium (1.6-2.3) mg/dL Total Bilirubin (0.2-1.3) mg/dL AST (14-36) U/L ALT (4-34) U/L Alkaline Phosphatase (38-126) U/L Troponin I (0.000-0.034) ng/mL NT-Pro-B Natriuret Pep pg/mL Total Protein (6.3-8.2) g/dL Albumin (3.5-5.0) g/dL - EKG Data -: EKG Interpreted by Me (EKG shows sinus tach 102 VA 169 QRS 90 QTC 369) - Radiology Data Radiology results: report reviewed (Chest x-ray does show significant right- sided pleural effusion with tracheal deviation to left side of chest), image reviewed Critical Care Time Critical Care Time: Yes Total Critical Care Time: 31 Disposition Clinical Impression: Acute pulmonary edema, Acute respiratory distress syndrome in adult, Acute respiratory failure, Hypoxia, Pleural effusion, right Disposition: ADMITTED IP TO THIS HOSP Condition: Stable Is patient prescribed a controlled substance at d/c from ED?: No Time of Disposition: 23:15
[2023-06-12 21:02] LABS: Anisocytosis Slight; Basophils % (A) 0 %; Eosinophils # (A) 0.2 k/uL (0-0.7); Eosinophils % (A) 1 %; HCT 36.5 % (34.0-46.0); HGB 11.5 gm/dL (11.4-16.0); Hypochromasia Slight; Lymphocytes # (A) 3.3 k/uL (1.0-4.8); Lymphocytes % (A) 21 %; MCH 29.2 pg (25.0-35.0); MCHC 31.6 g/dL (31.0-37.0); MCV 92.5 fL (80.0-100.0); Mean Platelet Volume 9.3; Monocytes # (A) 0.6 k/uL (0-1.0); Monocytes % (A) 4 %; Neutrophils # (A) 11.3 k/uL (1.3-7.7); Neutrophils % (A) 72 %; Platelet Count 255 k/uL (150-450); RBC 3.94 m/uL (3.80-5.40); RDW 17.7 % (11.5-15.5); WBC 15.6 k/uL (3.8-10.6)
[2023-06-12 21:11] LABS: ALT 23 U/L (4-34); AST 33 U/L (14-36); African American GFR (CKD) 14 (>60 ml/min/1.73 sqM); Albumin 4.2 g/dL (3.5-5.0); Alkaline Phosphatase 89 U/L (38-126); Anion Gap 14 mmol/L; Blood Urea Nitrogen 39 mg/dL (7-17); Calcium 9.5 mg/dL (8.4-10.2); Carbon Dioxide 23 mmol/L (22-30); Chloride 96 mmol/L (98-107); Glucose 282 mg/dL (74-99); Magnesium 1.8 mg/dL (1.6-2.3); Non-African American GFR(CKD) 12 (>60 ml/min/1.73 sqM); Phosphorus 5.8 mg/dL (2.5-4.5); Potassium 3.8 mmol/L (3.5-5.1); Sodium 133 mmol/L (137-145); Total Bilirubin 0.7 mg/dL (0.2-1.3); Total Protein 6.9 g/dL (6.3-8.2)
[2023-06-12 21:18] LABS: INR 0.9 (<1.2); Prothrombin Time 9.8 sec (9.0-12.0)
[2023-06-12 21:19] LABS: Partial Thromboplastin Time 19.9 sec (22.0-30.0)
[2023-06-12] MEDS ORDERED: MORPHINE SULFATE 2 MG/ML SYRINGE IVP STA (21:41)
[2023-06-12] MEDS ORDERED: LORazepam 2 MG/ML INJ IV STA (21:41)
--- NOTE | 2023-06-12 21:47 | XR ---
EXAMINATION TYPE: XR chest 1V portable DATE OF EXAM: 06/12/2023 9:26 PM COMPARISON: Chest radiographs from 02/24/2022 TECHNIQUE: XR chest 1V portable Frontal view of the chest. CLINICAL INDICATION:Female, 77 years old with history of cp; FINDINGS: Lungs/Pleura: There is interval development of suspected large right pleural effusion with associated atelectasis. There is blunting of the left costophrenic angle. Pulmonary vascularity: Unremarkable. Heart/mediastinum: Cardiomediastinal silhouette is unremarkable. Atherosclerosis of the aorta Musculoskeletal: No acute osseous pathology. Remote right proximal humerus and right rib injuries. IMPRESSION: 1. Interval development of large suspected pleural effusion with associated atelectasis. 2. Leftward shift of the mediastinum with possible small left pleural effusion.
[2023-06-12] MEDS ORDERED: NALOXONE 0.4 MG/ML 1 ML VIAL IV PRN (23:09)
[2023-06-12] MEDS ORDERED: ONDANSETRON 4 MG/2 ML VIAL IVP PRN (23:09)
[2023-06-12] MEDS ORDERED: MORPHINE SULFATE 4 MG/ML SYRINGE IV PRN (23:09)
--- NOTE | 2023-06-12 23:28 | XR ---
EXAM: XR Chest, 1 View CLINICAL HISTORY: ITS.REASON XR Reason: cp TECHNIQUE: Frontal view of the chest. COMPARISON: No relevant prior studies available. FINDINGS: Lungs: Unremarkable. No consolidation. Pleural space: Small bilateral pleural effusions. No pneumothorax. Heart: Cardiomegaly. Mediastinum: Unremarkable. Bones/joints: Unremarkable. IMPRESSION: Small bilateral pleural effusions.
--- NOTE | 2023-06-13 03:15 | P.CNPUL ---
History of Present Illness Consult date: 06/13/23 Requesting physician: Mason Howell Reason for consult: pleural effusion Chief complaint: Shortness of breath History of present illness: I am seeing this patient in consultation today 06/13/2023 in the emergency room for a large right-sided pleural effusion. Patient is a 77-year-old female with end-stage renal disease peritoneal dialysis, hypertension, hyperlipidemia, TIA. The patient presented to the emergency room via EMS last night with complaints of acute respiratory distress that started yesterday. Apparently, the patient receives peritoneal dialysis on a regular basis at home. The has been instilling approximately 2 L of peritoneal dialysate with each round. He has only been draining approximately 1 L back each time. Patient's states that they tried multiple maneuvers to drain the fluid. Denies any fevers, chills, myalgias, abdominal pain, or bloody or purulent drainage from the PD cath. On arrival to the emergency room, the patient was found to have a large right pleural effusion causing mediastinal shift to the left. The patient underwent a large-volume thoracentesis by ER physician with a total of 3.2 L of fluid removed. The fluid appears clear, and will be sent for cytology. The patient denies any history of lung cancer or prior pleural effusions. Repeat chest x-ray following the thoracentesis shows marked improvement of the right sided pleural effusion, and there were small bilateral pleural effusions. No longer any tracheal or mediastinal shift. No evidence of pneumothoraces. Patient reports improvement in her work of breathing. She is currently on the BiPAP with settings of 12/6 and FiO2 60%. This will likely be able to be weaned off later this morning. CBC on arrival shows a WBC count of 15.6, hemoglobin 11.5, hematocrit 36.5, platelets 255. BMP shows sodium 133, potassium 3.8, chloride 96, serum bicarbonate 23, BUN 39, creatinine 3.58, glucose 282. Lactic acid level was elevated at 4.4 and is down to 3.8. Troponin 0.014. NT proBNP elevated at 3090. Nephrology was consulted for management of peritoneal dialysis and the PD catheter. As stated above, the patient appears much more comfortable, and will be monitored on the cardiac stepdown unit. Review of Systems REVIEW OF SYSTEMS: CONSTITUTIONAL: Denies any recent significant weight loss or weight gain. EYES: Denies change in vision. EARS, NOSE, MOUTH, THROAT: Denies headaches, denies sore throat. CARDIOVASCULAR: Denies chest pain, palpitations or syncopal episodes. RESPIRATORY: Denies cough, congestion or hemoptysis. Admits shortness of breath GASTROINTESTINAL: Denies change in appetite, abdominal pain, nausea and vomiting, or diarrhea GENITOURINARY: Denies hematuria, denies infections. MUSKULOSKELETAL: Denies pain, denies swelling. INTEGUMENTARY: Denies rash, denies eczema. NEUROLOGICAL: Denies recent memory loss, no recent seizure activity. PSYCHIATRIC: Denies anxiety, denies depression. HEMATOLOGIC/LYMPHATIC: Denies anemia, denies enlarged lymph node Past Medical History Past Medical History: GERD/Reflux, Hyperlipidemia, Hypertension, Osteoarthritis (OA), Renal Disease Additional Past Medical History / Comment(s): hx of gout, states stage 4 renal disease, brain aneurysm x 2, see Dr Sow H&P, told TIA's- no residual refects, varicose veins, "bad sinus problems", hx bleeding ulcer, constipation, History of Any Multi-Drug Resistant Organisms: None Reported Past Surgical History: Heart Catheterization, Hernia Repair, Hysterectomy, Tonsillectomy Additional Past Surgical History / Comment(s): maria del rosario cataracts, cyst removed left upper leg , maria del rosario great toe-spurs removed, Past Anesthesia/Blood Transfusion Reactions: No Reported Reaction Past Psychological History: No Psychological Hx Reported Smoking Status: Former smoker - Past Family History Mother Family Medical History: No Reported History Medications and Allergies Home Medications Medication Instructions Recorded Confirmed Type Atorvastatin [Lipitor] 40 mg PO PC-SUPPER 07/27/20 06/12/23 History Venlafaxine HCl [Effexor XR] 150 mg PO DAILY 07/27/20 06/12/23 History allopurinoL [Zyloprim] 100 mg PO PC-BID 07/27/20 06/12/23 History calcitrioL [Calcitriol] 0.25 mcg PO MOWEFR 07/27/20 06/12/23 History traMADol HCL [Ultram] 50 mg PO HS 07/27/20 06/12/23 History Clopidogrel Bisulfate [Plavix] 75 mg PO PC-SUPPER 03/08/21 06/12/23 History cycloSPORINE [Restasis] 1 applicator BOTH EYES BID 03/08/21 06/12/23 History Aspirin [Adult Low Dose Aspirin EC] 81 mg PO PC-SUPPER 03/01/23 06/12/23 History Cyanocobalamin (Vitamin B-12) 1,000 mcg PO DAILY 03/01/23 06/12/23 History [Vitamin B-12] Ergocalciferol [Vitamin D2 (1250 1,250 mcg PO MO 03/01/23 06/12/23 History Mcg = 44183 Iu)] amLODIPine [Norvasc] 5 mg PO HS PRN 03/01/23 06/12/23 History carvediloL 12.5 mg PO BID 03/01/23 06/12/23 History Famotidine [Pepcid] 20 mg PO PC-BID 06/12/23 06/12/23 History Folic Acid/Vit B Complex and C 0.8 mg PO HS 06/12/23 06/12/23 History [Nephro Vitamins Tablet] Lactulose [Constulose] 20 gm PO BID PRN 06/12/23 06/12/23 History Potassium Chloride ER [K-Dur 10] 10 meq PO DAILY 06/12/23 06/12/23 History Torsemide [Demadex] 20 mg PO DAILY 06/12/23 06/12/23 History Allergies Allergy/AdvReac Type Severity Reaction Status Date / Time ciprofloxacin [From Cipro] Allergy "so weak I Verified 06/12/23 21:37 couldn't stand up" codeine Allergy Unknown Verified 06/12/23 21:37 levofloxacin [From Levaquin] Allergy "so weak I Verified 06/12/23 21:37 couldn't even stand up" Penicillins Allergy Rash/Hives Verified 06/12/23 21:37 Sulfa (Sulfonamide Allergy Unknown Verified 06/12/23 21:37 Antibiotics) Childhood diphenhydramine AdvReac "have Verified 06/12/23 21:37 opposite reaction, high energy for 3 days" Physical Exam Vitals: Vital Signs Pulse Resp BP Pulse Ox FiO2 06/12/23 23:30 60 06/12/23 23:08 94 26 H 148/89 100 06/12/23 21:53 104 H 33 H 189/114 98 06/12/23 21:52 105 H 06/12/23 21:38 104 H 06/12/23 21:37 104 H 06/12/23 21:27 106 H 06/12/23 21:09 34 H 06/12/23 20:53 102 H 32 H 182/100 97 06/12/23 20:50 65 06/12/23 20:49 104 H 28 H 158/115 94 L Intake and Output 06/12/23 06/12/23 06/13/23 14:59 22:59 06:59 Other: Weight 71.214 kg GENERAL EXAM: Alert, 77-year-old white female appearing stated age, fairly comfortable in no apparent distress. HEAD: Normocephalic and atraumatic EYES: Normal reaction of pupils, equal size. NOSE: Clear with pink turbinates. THROAT: No erythema or exudates. NECK: No masses, no JVD. CHEST: No chest wall deformity. LUNGS: Equal air entry with diminished lung sounds at the right base and inspiratory crackles heard at the left base. No wheeze, rhonchi or dullness. On the BiPAP settings 12/6 and FiO2 of 60%. No conversational dyspnea or accessory muscle use.. CVS: S1 and S2 normal with no audible murmur, regular rhythm. No extra heart sounds ABDOMEN: Abdomen is slightly distended. PD cath site is clean and dry without purulent drainage. No hepatosplenomegaly, active bowel sounds, no guarding or rigidity. SPINE: No scoliosis or deformity SKIN: No rashes CENTRAL NERVOUS SYSTEM: No focal deficits, tone is normal in all 4 extremities. EXTREMITIES: There is no peripheral edema, clubbing, or cyanosis. Peripheral pulses are intact. Results - Laboratory Findings CBC and BMP: 06/12/23 20:54 06/12/23 20:54 PT/INR, D-dimer PT 9.8 sec (9.0-12.0) 06/12/23 20:54 INR 0.9 (<1.2) 06/12/23 20:54 Abnormal lab findings: Abnormal Labs 06/12/23 06/12/23 06/12/23 20:54 20:54 20:54 WBC 15.6 H RDW 17.7 H Neutrophils # 11.3 H APTT 19.9 L Sodium 133 L Chloride 96 L BUN 39 H Creatinine 3.58 H Glucose 282 H Plasma Lactic Acid Rob Phosphorus 5.8 H 06/12/23 06/12/23 20:54 23:44 WBC RDW Neutrophils # APTT Sodium Chloride BUN Creatinine Glucose Plasma Lactic Acid Rob 4.4 H* 3.8 H* Phosphorus - Diagnostic Findings Chest x-ray: image reviewed Assessment and Plan Assessment: Large right-sided pleural effusion status post large volume thoracentesis with a total of 3.2 L of fluid removed. Fluid was sent for culture and cytology. This is likely related to repeated peritoneal dialysate installations without complete emptying, however, underlying malignancy, heart failure, or pathology is not ruled out. Repeat chest x-ray following the thoracentesis shows marked improvement of the right sided pleural effusion, and there were small bilateral pleural effusions. No longer any tracheal or mediastinal shift. No evidence of pneumothoraces. Acute hypoxemic respiratory failure secondary to above, currently on the BiPAP settings 12/6 and FiO2 60% End-stage renal disease with peritoneal dialysis, patient has had troubles draining her PD cath Lactic acidemia Benign essential hypertension Hyperlipidemia History of TIA History of gout Remote ex-smoker Plan: Patient's medications, labs, x-ray reviewed Will likely be able to wean off BiPAP later this morning Monitor for reexpansion pulmonary edema Repeat chest x-ray in the morning Pleural fluid was sent for cytology and culture Consult nephrology for management of peritoneal dialysis and PD catheter Would likely benefit from fibrinolytics through PD cath We will continue to follow I have personally seen and examined the patient, performed the documentation and the assessment and plan as written. Number of minutes spent on the visit:20 Time with Patient: Greater than 30
[2023-06-13 04:30] LABS: Anisocytosis Slight; Basophils % (A) 0 %; Eosinophils % (A) 0 %; HCT 34.9 % (34.0-46.0); HGB 11.2 gm/dL (11.4-16.0); Lymphocytes # (A) 0.7 k/uL (1.0-4.8); Lymphocytes % (A) 5 %; MCH 28.5 pg (25.0-35.0); MCHC 32.1 g/dL (31.0-37.0); MCV 88.8 fL (80.0-100.0); Mean Platelet Volume 9.2; Monocytes # (A) 0.3 k/uL (0-1.0); Monocytes % (A) 2 %; Neutrophils # (A) 12.7 k/uL (1.3-7.7); Neutrophils % (A) 92 %; Platelet Count 216 k/uL (150-450); RBC 3.93 m/uL (3.80-5.40); RDW 17.7 % (11.5-15.5); WBC 13.7 k/uL (3.8-10.6)
[2023-06-13 04:47] LABS: ALT 23 U/L (4-34); AST 33 U/L (14-36); African American GFR (CKD) 12 (>60 ml/min/1.73 sqM); Albumin 3.9 g/dL (3.5-5.0); Alkaline Phosphatase 67 U/L (38-126); Anion Gap 15 mmol/L; Blood Urea Nitrogen 45 mg/dL (7-17); Calcium 9.8 mg/dL (8.4-10.2); Carbon Dioxide 23 mmol/L (22-30); Chloride 95 mmol/L (98-107); Glucose 150 mg/dL (74-99); Magnesium 1.7 mg/dL (1.6-2.3); Non-African American GFR(CKD) 11 (>60 ml/min/1.73 sqM); Phosphorus 4.7 mg/dL (2.5-4.5); Potassium 3.6 mmol/L (3.5-5.1); Sodium 133 mmol/L (137-145); Total Bilirubin 0.8 mg/dL (0.2-1.3); Total Protein 6.5 g/dL (6.3-8.2)
--- NOTE | 2023-06-13 07:18 | XR ---
EXAMINATION TYPE: XR chest 1V DATE OF EXAM: 06/13/2023 COMPARISON: 06/12/2023 INDICATION: Short of breath TECHNIQUE: Single frontal view of the chest is obtained. FINDINGS: The heart size is normal. The pulmonary vasculature is normal. Retrocardiac infiltrate is present. There is an increasing right lower lobe infiltrate. Small effusio ns may be present. Degenerative changes are at the right humeral head IMPRESSION: 1. Worsening right lower lobe infiltrate. 2. Retrocardiac tree. 3. Small bilateral pleural effusions.
[2023-06-13] MEDS: IPRATROPIUM-ALBUTEROL 3 ML NEB INHALATION PRN ×4 (08:39→20:50)
[2023-06-13] MEDS: TORSEMIDE 20 MG TAB PO SCH (09:04)
[2023-06-13] MEDS ORDERED: PNEUMONIA PROTOCOL UTILIZED 1 EACH MISC PO PRN (09:50)
[2023-06-13] MEDS ORDERED: LACTULOSE 20 GM/30 ML CUP PO PRN (09:53)
[2023-06-13] MEDS ORDERED: amLODIPine 5 MG TAB PO PRN (09:53)
[2023-06-13] MEDS ORDERED: DIALYSIS (PERIT 4.25%) 2500 ML 106.25 G/2,500 ML BAG INTRAPERIT ONE (10:15)
--- NOTE | 2023-06-13 10:55 | XR ---
EXAMINATION TYPE: XR chest 2V DATE OF EXAM: 06/13/2023 COMPARISON: 06/13/2023 INDICATION: Pneumonia TECHNIQUE: Frontal and lateral views of the chest are obtained. FINDINGS: The heart size is upper limits of normal. The pulmonary vasculature is normal. Bibasilar infiltrates and small pleural effusions are present. There may be some improvement of the r ight lower lobe infiltrate over the interval.. IMPRESSION: 1. Bibasilar infiltrates, improving at the right base. Small bilateral pleural effusions remain prese nt
[2023-06-13] MEDS: CEFEPIME 1 GM in SODIUM CHLORIDE 0.9% 50 ML IVPB SCH (11:10)
--- NOTE | 2023-06-13 12:01 | P.NPCON ---
History of Present Illness - Reason for Consult end stage renal disease - History of Present Illness Patient is a 77-year-old female with end-stage renal disease maintained on peritoneal dialysis who was admitted to the hospital with complaints of shortness of breath which quickly got worse yesterday. Patient's has been doing her dialysis exchanges and noticed decreased UF with her morning exchange to only about 500 mL. UF had improved with the second exchange but patient still retained about a liter. Subsequently when patient was ready to do the third exchange patient's shortness of breath got significantly worse and he came into the hospital. No history of fever No cough No abdominal pain Bowel movements have been regular. Patient was noted to have a large right pleural effusion for which she had right thoracentesis with 3.2 L of fluid removed. Patient was initially on BiPAP and her oxygen was weaned down to 5 L nasal cannula. Shortness of breath has improved. History of recent fall and blood noted in the effluent. This had improved over the past 3-4 days. Dialysis fluid had been clear day before yesterday. Review of Systems As per HPI. Past Medical History Past Medical History: GERD/Reflux, Hyperlipidemia, Hypertension, Osteoarthritis (OA), Renal Disease Additional Past Medical History / Comment(s): hx of gout, states stage 4 renal disease, brain aneurysm x 2, see Dr Sow H&P, told TIA's- no residual refects, varicose veins, "bad sinus problems", hx bleeding ulcer, constipation, History of Any Multi-Drug Resistant Organisms: None Reported Past Surgical History: Heart Catheterization, Hernia Repair, Hysterectomy, Ton sillectomy Additional Past Surgical History / Comment(s): maria del rosario cataracts, cyst removed left upper leg , maria del rosario great toe-spurs removed, Past Anesthesia/Blood Transfusion Reactions: No Reported Reaction Past Psychological History: No Psychological Hx Reported Smoking Status: Former smoker - Past Family History Mother Family Medical History: No Reported History Medications and Allergies Home Medications Medication Instructions Recorded Confirmed Type Atorvastatin [Lipitor] 40 mg PO PC-SUPPER 07/27/20 06/12/23 History Venlafaxine HCl [Effexor XR] 150 mg PO DAILY 07/27/20 06/12/23 History allopurinoL [Zyloprim] 100 mg PO PC-BID 07/27/20 06/12/23 History calcitrioL [Calcitriol] 0.25 mcg PO MOWEFR 07/27/20 06/12/23 History traMADol HCL [Ultram] 50 mg PO HS 07/27/20 06/12/23 History Clopidogrel Bisulfate [Plavix] 75 mg PO PC-SUPPER 03/08/21 06/12/23 History cycloSPORINE [Restasis] 1 applicator BOTH EYES BID 03/08/21 06/12/23 History Aspirin [Adult Low Dose Aspirin EC] 81 mg PO PC-SUPPER 03/01/23 06/12/23 History Cyanocobalamin (Vitamin B-12) 1,000 mcg PO DAILY 03/01/23 06/12/23 History [Vitamin B-12] Ergocalciferol [Vitamin D2 (1250 1,250 mcg PO MO 03/01/23 06/12/23 History Mcg = 16446 Iu)] amLODIPine [Norvasc] 5 mg PO HS PRN 03/01/23 06/12/23 History carvediloL 12.5 mg PO BID 03/01/23 06/12/23 History Famotidine [Pepcid] 20 mg PO PC-BID 06/12/23 06/12/23 History Folic Acid/Vit B Complex and C 0.8 mg PO HS 06/12/23 06/12/23 History [Nephro Vitamins Tablet] Lactulose [Constulose] 20 gm PO BID PRN 06/12/23 06/12/23 History Potassium Chloride ER [K-Dur 10] 10 meq PO DAILY 06/12/23 06/12/23 History Torsemide [Demadex] 20 mg PO DAILY 06/12/23 06/12/23 History Allergies Allergy/AdvReac Type Severity Reaction Status Date / Time ciprofloxacin [From Cipro] Allergy "so weak I Verified 06/12/23 21:37 couldn't stand up" codeine Allergy Unknown Verified 06/12/23 21:37 levofloxacin [From Levaquin] Allergy "so weak I Verified 06/12/23 21:37 couldn't even stand up" Penicillins Allergy Rash/Hives Verified 06/12/23 21:37 Sulfa (Sulfonamide Allergy Unknown Verified 06/12/23 21:37 Antibiotics) Childhood diphenhydramine AdvReac "have Verified 06/12/23 21:37 opposite reaction, high energy for 3 days" Physical Exam Vitals: Vital Signs Temp Pulse Resp BP Pulse Ox FiO2 06/13/23 10:40 82 16 135/65 94 L 06/13/23 09:02 89 18 168/79 95 06/13/23 08:47 79 06/13/23 08:40 80 06/13/23 07:43 97.9 F 80 18 157/84 94 L 06/13/23 06:17 77 18 154/76 94 L 06/13/23 02:00 75 20 110/66 96 06/12/23 23:30 60 06/12/23 23:08 94 26 H 148/89 100 06/12/23 21:53 104 H 33 H 189/114 98 06/12/23 21:52 105 H 06/12/23 21:38 104 H 06/12/23 21:37 104 H 06/12/23 21:27 106 H 06/12/23 21:09 34 H 06/12/23 20:53 102 H 32 H 182/100 97 06/12/23 20:50 65 06/12/23 20:49 104 H 28 H 158/115 94 L Intake and Output 06/12/23 06/13/23 06/13/23 22:59 06:59 14:59 Output Total 75 Balance -75 Output: Urine 75 Other: Weight 71.214 kg Patient is awake, comfortable, in no acute distress Examination of the heart S1 and S2 Examination of the lungs bilateral breath sounds are heard, decrease at the bases Abdomen is soft nontender Examination lower extremity shows edema trace bilaterally 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 End-stage renal disease maintained on peritoneal dialysis 2. Acute hypoxic respiratory failure secondary to large right pleural effusion and fluid overload 3. Volume overload associated with recent decreased UF with exchanges. 4. Hypertension with CK D stage IV 5. Lactic acidosis 6. Large right pleural effusion most likely associated with peritoneal dialysis with pleuroperitoneal leak, status post right thoracentesis with 3.2 L of fluid removed. Plan: 4.25% solution exchange 1 and then maintain on 2.5% exchanges every 6 hours. Send PD fluid for cell count Gram stain and culture May continue with cefepime Avoid constipation Continue with oral diuretics as well Repeat labs in a.m. Thank you for the consultation. We will continue to follow the patient with you during her hospitalization.
[2023-06-13 13:47] LABS: Glucose, BF Source Pleural Fluid; Glucose, Body Fluid 716 mg/dL
[2023-06-13 13:48] LABS: Amylase, Fluid Source Pleural Fluid; Amylase,Body Fluid <3 U/L; Cholesterol,BF Source Pleural Fluid; Cholesterol,Body Fluid <4 mg/dL; LDH, Body Fluid Source Pleural Fluid; T. Protein, Body Fluid Source Pleural Fluid; Total Protein, Body Fluid <200 mg/dL
--- NOTE | 2023-06-13 13:50 | XR ---
EXAMINATION TYPE: XR abdomen 2V DATE OF EXAM: 06/13/2023 COMPARISON: None INDICATION: Peritoneal dialysis catheter malfunction TECHNIQUE: 2 view abdomen supine and upright view FINDINGS: There is a normal bowel gas pattern. No free air is evident. Small pleural effusion may be present at the left base. Psoas margins are normal. No organomegaly is present. Peritoneal dialysis catheter enters on the right with coil in the lower pelvis. This appears intact a nd unremarkable as visualized. IMPRESSION: 1. Unremarkable Abdomen
--- NOTE | 2023-06-13 14:08 | P.HPIM ---
History of Present Illness H&P Date: 06/13/23 History of present illness; patient 77-year-old lady with past medical history s ignificant for end-stage renal disease on dialysis who presented to the ER because of shortness of breath. Patient does peritoneal dialysis at home and states that for the last 2 days she was getting more short of breath. Shortness of breath was present on rest as well as exertion. Patient stated that normally they use 2 L of fluid for peritoneal dialysis but she was only getting 1 L of fluid in return. Denied any chest pain. Because of worsening shortness of breath, EMS was called and patient was found to be saturating in 60s on room air, patient was placed on BiPAP and was brought to the ER. In the ER, patient underwent imaging and labs Initial lab work done in the ER showed he received 15.6, hemoglobin 11.5, platelet count 255, sodium 133, potassium 3.8, chloride 96, BUN 39, creatinine 3.58 phosphorous 5.8, troponin 0.014 Chest x-ray done in the ER showed interval development of a large suspected right pleural effusion with associated atelectasis Patient underwent thoracentesis in the ER and was admitted to medicine service REVIEW OF SYSTEMS: CONSTITUTIONAL: No fever, no malaise, no fatigue. HEENT: No recent visual problems or hearing problems. Denied any sore throat. CARDIOVASCULAR: No chest pain, orthopnea, PND, no palpitations, no syncope. PULMONARY: As mentioned in HPI GASTROINTESTINAL: No diarrhea, no nausea, no vomiting, no abdominal pain. NEUROLOGICAL: No headaches, no weakness, no numbness. HEMATOLOGICAL: Denies any bleeding or petechiae. GENITOURINARY: Denies any burning micturition, frequency, or urgency. MUSCULOSKELETAL/RHEUMATOLOGICAL: Denies any joint pain, swelling, or any muscle pain. ENDOCRINE: Denies any polyuria or polydipsia. The rest of the 14-point review of systems is negative. PHYSICAL EXAMINATION: GENERAL: The patient is alert and oriented x3, not in any acute distress. Well developed, well nourished. HEENT: Pupils are round and equally reacting to light. EOMI. No scleral icterus. No conjunctival pallor. Normocephalic, atraumatic. No pharyngeal erythema. No thyromegaly. CARDIOVASCULAR: S1 and S2 present. No murmurs, rubs, or gallops. PULMONARY: Diminished breath sounds at the bases bilaterally ABDOMEN: Soft, nontender, nondistended, normoactive bowel sounds. No palpable organomegaly. PD catheter is seen MUSCULOSKELETAL: No joint swelling or deformity. EXTREMITIES: 1+ pitting edema of lower extremities bilaterally NEUROLOGICAL: Gross neurological examination did not reveal any focal deficits. SKIN: No rashes. Assessment and plan Bacterial pneumonia Acute hypoxemic respiratory failure Right pleural effusion status post thoracentesis End-stage renal disease on peritoneal dialysis Lactic acidemia Benign essential hypertension Hyperlipidemia History of TIA History of gout Monitor vital signs Monitor CBC Monitor CMP Continue telemetry monitoring Ordered blood cultures Sputum cultures Started IV cefepime and vancomycin Continue breathing treatments Continue peritoneal dialysis per nephrology Follow-up on pulmonary recommendations ID consulted Labs and medication were reviewed.. Continue same treatment. Continue with symptomatic treatment. Resume home medication. Monitor labs and vitals. DVT and GI prophylaxis. Further recommendations as per clinical course of the patient Past Medical History Past Medical History: GERD/Reflux, Hyperlipidemia, Hypertension, Osteoarthritis (OA), Renal Disease Additional Past Medical History / Comment(s): hx of gout, states stage 4 renal disease, brain aneurysm x 2, see Dr Sow H&P, told TIA's- no residual refects, varicose veins, "bad sinus problems", hx bleeding ulcer, constipation, History of Any Multi-Drug Resistant Organisms: None Reported Past Surgical History: Heart Catheterization, Hernia Repair, Hysterectomy, Tonsillectomy Additional Past Surgical History / Comment(s): maria del rosario cataracts, cyst removed left upper leg , maria del rosario great toe-spurs removed, Past Anesthesia/Blood Transfusion Reactions: No Reported Reaction Past Psychological History: No Psychological Hx Reported Smoking Status: Former smoker - Past Family History Mother Family Medical History: No Reported History Medications and Allergies Home Medications Medication Instructions Recorded Confirmed Type Atorvastatin [Lipitor] 40 mg PO PC-SUPPER 07/27/20 06/12/23 History Venlafaxine HCl [Effexor XR] 150 mg PO DAILY 07/27/20 06/12/23 History allopurinoL [Zyloprim] 100 mg PO PC-BID 07/27/20 06/12/23 History calcitrioL [Calcitriol] 0.25 mcg PO MOWEFR 07/27/20 06/12/23 History traMADol HCL [Ultram] 50 mg PO HS 07/27/20 06/12/23 History Clopidogrel Bisulfate [Plavix] 75 mg PO PC-SUPPER 03/08/21 06/12/23 History cycloSPORINE [Restasis] 1 applicator BOTH EYES BID 03/08/21 06/12/23 History Aspirin [Adult Low Dose Aspirin EC] 81 mg PO PC-SUPPER 03/01/23 06/12/23 History Cyanocobalamin (Vitamin B-12) 1,000 mcg PO DAILY 03/01/23 06/12/23 History [Vitamin B-12] Ergocalciferol [Vitamin D2 (1250 1,250 mcg PO MO 03/01/23 06/12/23 History Mcg = 95997 Iu)] amLODIPine [Norvasc] 5 mg PO HS PRN 03/01/23 06/12/23 History carvediloL 12.5 mg PO BID 03/01/23 06/12/23 History Famotidine [Pepcid] 20 mg PO PC-BID 06/12/23 06/12/23 History Folic Acid/Vit B Complex and C 0.8 mg PO HS 06/12/23 06/12/23 History [Nephro Vitamins Tablet] Lactulose [Constulose] 20 gm PO BID PRN 06/12/23 06/12/23 History Potassium Chloride ER [K-Dur 10] 10 meq PO DAILY 06/12/23 06/12/23 History Torsemide [Demadex] 20 mg PO DAILY 06/12/23 06/12/23 History Allergies Allergy/AdvReac Type Severity Reaction Status Date / Time ciprofloxacin [From Cipro] Allergy "so weak I Verified 06/12/23 21:37 couldn't stand up" codeine Allergy Unknown Verified 06/12/23 21:37 levofloxacin [From Levaquin] Allergy "so weak I Verified 06/12/23 21:37 couldn't even stand up" Penicillins Allergy Rash/Hives Verified 06/12/23 21:37 Sulfa (Sulfonamide Allergy Unknown Verified 06/12/23 21:37 Antibiotics) Childhood diphenhydramine AdvReac "have Verified 06/12/23 21:37 opposite reaction, high energy for 3 days" Physical Exam Vitals: Vital Signs Temp Pulse Resp BP Pulse Ox FiO2 06/13/23 09:02 89 18 168/79 95 06/13/23 08:47 79 06/13/23 08:40 80 06/13/23 07:43 97.9 F 80 18 157/84 94 L 06/13/23 06:17 77 18 154/76 94 L 06/13/23 02:00 75 20 110/66 96 06/12/23 23:30 60 06/12/23 23:08 94 26 H 148/89 100 06/12/23 21:53 104 H 33 H 189/114 98 06/12/23 21:52 105 H 06/12/23 21:38 104 H 06/12/23 21:37 104 H 06/12/23 21:27 106 H 06/12/23 21:09 34 H 06/12/23 20:53 102 H 32 H 182/100 97 06/12/23 20:50 65 06/12/23 20:49 104 H 28 H 158/115 94 L Intake and Output 06/12/23 06/13/23 06/13/23 22:59 06:59 14:59 Output Total 75 Balance -75 Output: Urine 75 Other: Weight 71.214 kg Results CBC & Chem 7: 06/13/23 03:42 06/13/23 03:42 Labs: Abnormal Lab Results - Last 24 Hours (Table) 06/12/23 06/12/23 06/12/23 Range/Units 20:54 20:54 20:54 WBC 15.6 H (3.8-10.6) k/uL Hgb (11.4-16.0) gm/dL RDW 17.7 H (11.5-15.5) % Neutrophils # 11.3 H (1.3-7.7) k/uL Lymphocytes # (1.0-4.8) k/uL APTT 19.9 L (22.0-30.0) sec Sodium 133 L (137-145) mmol/L Chloride 96 L (98-107) mmol/L BUN 39 H (7-17) mg/dL Creatinine 3.58 H (0.52-1.04) mg/dL Glucose 282 H (74-99) mg/dL Plasma Lactic Acid Rob (0.7-2.0) mmol/L Phosphorus 5.8 H (2.5-4.5) mg/dL 06/12/23 06/12/23 06/13/23 Range/Units 20:54 23:44 03:42 WBC 13.7 H (3.8-10.6) k/uL Hgb 11.2 L (11.4-16.0) gm/dL RDW 17.7 H (11.5-15.5) % Neutrophils # 12.7 H (1.3-7.7) k/uL Lymphocytes # 0.7 L (1.0-4.8) k/uL APTT (22.0-30.0) sec Sodium (137-145) mmol/L Chloride (98-107) mmol/L BUN (7-17) mg/dL Creatinine (0.52-1.04) mg/dL Glucose (74-99) mg/dL Plasma Lactic Acid Rob 4.4 H* 3.8 H* (0.7-2.0) mmol/L Phosphorus (2.5-4.5) mg/dL 06/13/23 06/13/23 06/13/23 Range/Units 03:42 03:42 06:54 WBC (3.8-10.6) k/uL Hgb (11.4-16.0) gm/dL RDW (11.5-15.5) % Neutrophils # (1.3-7.7) k/uL Lymphocytes # (1.0-4.8) k/uL APTT (22.0-30.0) sec Sodium 133 L (137-145) mmol/L Chloride 95 L (98-107) mmol/L BUN 45 H (7-17) mg/dL Creatinine 3.86 H (0.52-1.04) mg/dL Glucose 150 H (74-99) mg/dL Plasma Lactic Acid Rob 2.5 H* 2.2 H* (0.7-2.0) mmol/L Phosphorus 4.7 H (2.5-4.5) mg/dL
[2023-06-13] MEDS ORDERED: CEFEPIME 2 GM in SODIUM CHLORIDE 0.9% 100 ML IVPB SCH (16:00)
[2023-06-13] MEDS: ASPIRIN 81 MG PO SCH (17:51)
[2023-06-13] MEDS: FAMOTIDINE 20 MG TAB PO SCH (17:51)
[2023-06-13] MEDS: CLOPIDOGREL 75 MG TAB PO SCH (17:51)
[2023-06-13] MEDS: carvediloL 12.5 MG TAB PO SCH (17:51)
[2023-06-13] MEDS: ATORVASTATIN 40 MG TAB PO SCH (17:52)
[2023-06-13] MEDS: allopurinoL 100 MG TAB PO SCH (17:52)
[2023-06-13] MEDS ORDERED: DIALYSIS (PERIT 2.5%) 2,500 ML 62.5 G/2,500 ML BAG INTRAPERIT SCH (18:00)
[2023-06-13] MEDS ORDERED: DIALYSIS (PERIT 2.5%) 2,000 ML 50 G/2,000 ML BAG INTRAPERIT SCH (18:00)
[2023-06-13] MEDS: cycloSPORINE 0.05% OPHTH 0.4 ML DROPERETTE BOTH EYES SCH (21:29)
[2023-06-13] MEDS: traMADol 50 MG TAB PO SCH (21:29)
[2023-06-13] MEDS: FOLIC ACID-VIT B COMPLEX-VIT C 1 CAP PO SCH ×2 (21:29→21:33)
--- NOTE | 2023-06-13 22:03 | P.CONS ---
History of Present Illness - Reason for Consult Consult date: 06/13/23 Sepsis, pneumonia Requesting physician: Junior Mendez - Chief Complaint Shortness of breath x few days - History of Present Illness Patient is a 77-year-old female with past medical history significant for end-stage renal disease on peritoneal dialysis since March 2023, also history of hypertension hyperlipidemia TIA presenting to the ER last night for evaluation of shortness of breath apparently has been going on for a day or 2 before presentation to the hospital patient also complaining of not getting enough Dialyslate fluid out at the end of dialysis patient denies having any fever or any chills no abdominal pain , denies any purulent peritoneal fluid patient on presentation to the hospital was afebrile and no fever and no fever recorded subsequently patient did have a white count of 15.6 with a left shift lactic acid was elevated liver enzyme are normal patient did have a chest x-ray large right-sided effusion with this was atelectasis leftward shift of the mediastinum with posterior small left pleural effusion patient is status post thoracocentesis pleural fluid protein was present 200 no cell count and differential was done with concern for possible component of pneumonia patient did have multiple antibiotic allergies patient was started on Levaquin infectious disease was consulted for further management of antibiotic therapy Review of Systems Positive point and negatives has been mentioned in the HPI, complete review of systems was performed and all other systems are negative Past Medical History Past Medical History: GERD/Reflux, Hyperlipidemia, Hypertension, Osteoarthritis (OA), Renal Disease Additional Past Medical History / Comment(s): hx of gout, states stage 4 renal disease, brain aneurysm x 2, see Dr Sow H&P, told TIA's- no residual refects, varicose veins, "bad sinus problems", hx bleeding ulcer, constipation, History of Any Multi-Drug Resistant Organisms: None Reported Past Surgical History: Heart Catheterization, Hernia Repair, Hysterectomy, Tonsillectomy Additional Past Surgical History / Comment(s): maria del rosario cataracts, cyst removed left upper leg , maria del rosario great toe-spurs removed, Past Anesthesia/Blood Transfusion Reactions: No Reported Reaction Past Psychological History: No Psychological Hx Reported Smoking Status: Former smoker - Past Family History Mother Family Medical History: No Reported History Medications and Allergies Home Medications Medication Instructions Recorded Confirmed Type Atorvastatin [Lipitor] 40 mg PO PC-SUPPER 07/27/20 06/12/23 History Venlafaxine HCl [Effexor XR] 150 mg PO DAILY 07/27/20 06/12/23 History allopurinoL [Zyloprim] 100 mg PO PC-BID 07/27/20 06/12/23 History calcitrioL [Calcitriol] 0.25 mcg PO MOWEFR 07/27/20 06/12/23 History traMADol HCL [Ultram] 50 mg PO HS 07/27/20 06/12/23 History cycloSPORINE [Restasis] 1 applicator BOTH EYES BID 03/08/21 06/12/23 History Cyanocobalamin (Vitamin B-12) 1,000 mcg PO DAILY 03/01/23 06/12/23 History [Vitamin B-12] Ergocalciferol [Vitamin D2 (1250 1,250 mcg PO MO 03/01/23 06/12/23 History Mcg = 25250 Iu)] amLODIPine [Norvasc] 5 mg PO HS PRN 03/01/23 06/12/23 History carvediloL 12.5 mg PO BID 03/01/23 06/12/23 History Famotidine [Pepcid] 20 mg PO PC-BID 06/12/23 06/12/23 History Folic Acid/Vit B Complex and C 0.8 mg PO HS 06/12/23 06/12/23 History [Nephro Vitamins Tablet] Lactulose [Constulose] 20 gm PO BID PRN 06/12/23 06/12/23 History Potassium Chloride ER [K-Dur 10] 10 meq PO DAILY 06/12/23 06/12/23 History Torsemide [Demadex] 20 mg PO DAILY 06/12/23 06/12/23 History Apixaban [Eliquis] 2.5 mg PO BID #60 tab 06/15/23 Rx cefUROXime axetiL [Cefuroxime] 500 mg PO DAILY 7 Days #7 tab 06/17/23 Rx Allergies Allergy/AdvReac Type Severity Reaction Status Date / Time ciprofloxacin [From Cipro] Allergy "so weak I Verified 06/12/23 21:37 couldn't stand up" codeine Allergy Unknown Verified 06/12/23 21:37 levofloxacin [From Levaquin] Allergy "so weak I Verified 06/12/23 21:37 couldn't even stand up" Penicillins Allergy Rash/Hives Verified 06/12/23 21:37 Sulfa (Sulfonamide Allergy Unknown Verified 06/12/23 21:37 Antibiotics) Childhood diphenhydramine AdvReac "have Verified 06/12/23 21:37 opposite reaction, high energy for 3 days" Physical Exam Vitals: Vital Signs Temp Pulse Resp BP Pulse Ox FiO2 06/13/23 13:14 80 06/13/23 13:04 82 06/13/23 10:40 82 16 135/65 94 L 06/13/23 09:02 89 18 168/79 95 06/13/23 08:47 79 06/13/23 08:40 80 06/13/23 07:43 97.9 F 80 18 157/84 94 L 06/13/23 06:17 77 18 154/76 94 L 06/13/23 02:00 75 20 110/66 96 06/12/23 23:30 60 06/12/23 23:08 94 26 H 148/89 100 06/12/23 21:53 104 H 33 H 189/114 98 06/12/23 21:52 105 H 06/12/23 21:38 104 H 06/12/23 21:37 104 H 06/12/23 21:27 106 H 06/12/23 21:09 34 H 06/12/23 20:53 102 H 32 H 182/100 97 06/12/23 20:50 65 06/12/23 20:49 104 H 28 H 158/115 94 L Intake and Output 06/12/23 06/13/23 06/13/23 22:59 06:59 14:59 Output Total 75 Balance -75 Output: Urine 75 Other: Weight 71.214 kg GENERAL DESCRIPTION: Elderly female lying in bed, no distress. No tachypnea or accessory muscle of respiration use. HEENT: Shows Pallor , no scleral icterus. Oral mucous membrane is dry. NECK: Trachea central, no thyromegaly. LUNGS: Unlabored breathing. Decreased breath sounds at the base HEART: S1, S2, regular rate and rhythm. No loud murmur ABDOMEN: Soft, no tenderness , guarding or rigidity, no organomegaly EXTREMITIES: No edema of feet. SKIN: No rash, no masses palpable. NEUROLOGICAL: The patient is awake, alert, oriented x3, mood and affect normal. Results CBC & Chem 7: 06/17/23 06:42 06/17/23 06:42 Labs: Abnormal Lab Results - Last 24 Hours (Table) 06/12/23 06/12/23 06/12/23 Range/Units 20:54 20:54 20:54 WBC 15.6 H (3.8-10.6) k/uL Hgb (11.4-16.0) gm/dL RDW 17.7 H (11.5-15.5) % Neutrophils # 11.3 H (1.3-7.7) k/uL Lymphocytes # (1.0-4.8) k/uL APTT 19.9 L (22.0-30.0) sec Sodium 133 L (137-145) mmol/L Chloride 96 L (98-107) mmol/L BUN 39 H (7-17) mg/dL Creatinine 3.58 H (0.52-1.04) mg/dL Glucose 282 H (74-99) mg/dL Plasma Lactic Acid Rob (0.7-2.0) mmol/L Phosphorus 5.8 H (2.5-4.5) mg/dL 06/12/23 06/12/23 06/13/23 Range/Units 20:54 23:44 03:42 WBC 13.7 H (3.8-10.6) k/uL Hgb 11.2 L (11.4-16.0) gm/dL RDW 17.7 H (11.5-15.5) % Neutrophils # 12.7 H (1.3-7.7) k/uL Lymphocytes # 0.7 L (1.0-4.8) k/uL APTT (22.0-30.0) sec Sodium (137-145) mmol/L Chloride (98-107) mmol/L BUN (7-17) mg/dL Creatinine (0.52-1.04) mg/dL Glucose (74-99) mg/dL Plasma Lactic Acid Rob 4.4 H* 3.8 H* (0.7-2.0) mmol/L Phosphorus (2.5-4.5) mg/dL 06/13/23 06/13/23 06/13/23 Range/Units 03:42 03:42 06:54 WBC (3.8-10.6) k/uL Hgb (11.4-16.0) gm/dL RDW (11.5-15.5) % Neutrophils # (1.3-7.7) k/uL Lymphocytes # (1.0-4.8) k/uL APTT (22.0-30.0) sec Sodium 133 L (137-145) mmol/L Chloride 95 L (98-107) mmol/L BUN 45 H (7-17) mg/dL Creatinine 3.86 H (0.52-1.04) mg/dL Glucose 150 H (74-99) mg/dL Plasma Lactic Acid Rob 2.5 H* 2.2 H* (0.7-2.0) mmol/L Phosphorus 4.7 H (2.5-4.5) mg/dL Assessment and Plan (1) Leukocytosis Status: Acute Code(s): D72.829 - ELEVATED WHITE BLOOD CELL COUNT, UNSPECIFIED SNOMED Code(s): 418135521 (2) Pleural effusion, right Status: Acute Code(s): J90 - PLEURAL EFFUSION, NOT ELSEWHERE CLASSIFIED SNOMED Code(s): 77152208 (3) Pneumonia Status: Acute Code(s): J18.9 - PNEUMONIA, UNSPECIFIED ORGANISM SNOMED Code(s): 242025123 Plan: 1patient presented to the hospital with increasing shortness of breath which is likely multifactorial and more likely related to fluid overload in this patient who do have a history of end-stage renal disease on peritoneal dialysis but not getting enough fluid out at the end of the session noticed to have significant effusion status post thoracocentesis however no cell count was done there is possible compressive atelectasis rather than pneumonia and elevated white count more likely reactive. 2we will check a CRP procalcitonin sputum for Gram stain because of possible 3-patient with multiple antibiotic allergies that would limit the number of antibiotics safe to use 4-May continue cefepime while waiting for the culture to finalize We will follow on clinical condition and cultures to further adjust medication if needed Thank you for this consultation we will follow the patient along with you Dictation was produced using [employer] software. please excuse any grammatical, word or spelling errors. Time with Patient: Greater than 30
--- NOTE | 2023-06-14 00:12 | XR ---
EXAM: XR Chest, 1 View CLINICAL HISTORY: fluid overload TECHNIQUE: Frontal view of the chest. COMPARISON: June 12, 2023 FINDINGS: There has been a significant interval increase in right pleural effusion and underlying right lung base atelectasis. There is likely a small left pleural effusion and mild left base atelectasis as well. There is no evidence of pneumothorax. IMPRESSION: Significant interval increase in right pleural effusion and right lung base atelectasis.
[2023-06-14] MEDS ORDERED: DIALYSIS (PERIT 2.5%) 2,000 ML 50 G/2,000 ML BAG INTRAPERIT SCH ×2 (04:00→22:00)
[2023-06-14 05:51] LABS: Glucose,Whole Blood 128 mg/dL (70-110)
[2023-06-14] MEDS: carvediloL 12.5 MG TAB PO SCH ×2 (06:26→16:37)
[2023-06-14 07:33] LABS: Anisocytosis Slight; Basophils % (A) 0 %; Eosinophils % (A) 0 %; HCT 30.7 % (34.0-46.0); HGB 9.8 gm/dL (11.4-16.0); Lymphocytes # (A) 1.3 k/uL (1.0-4.8); Lymphocytes % (A) 8 %; MCH 28.2 pg (25.0-35.0); MCV 88.1 fL (80.0-100.0); Monocytes # (A) 0.7 k/uL (0-1.0); Monocytes % (A) 4 %; Neutrophils # (A) 13.2 k/uL (1.3-7.7); Neutrophils % (A) 86 %; Platelet Count 198 k/uL (150-450); RBC 3.49 m/uL (3.80-5.40); RDW 18.1 % (11.5-15.5); WBC 15.4 k/uL (3.8-10.6)
[2023-06-14 07:41] LABS: ALT 22 U/L (4-34); AST 33 U/L (14-36); African American GFR (CKD) 9 (>60 ml/min/1.73 sqM); Albumin 3.3 g/dL (3.5-5.0); Alkaline Phosphatase 61 U/L (38-126); Anion Gap 12 mmol/L; Blood Urea Nitrogen 62 mg/dL (7-17); C Reactive Protein 0.8 mg/dL (<1.0); Calcium 9.4 mg/dL (8.4-10.2); Carbon Dioxide 26 mmol/L (22-30); Chloride 96 mmol/L (98-107); Glucose 121 mg/dL (74-99); Non-African American GFR(CKD) 7 (>60 ml/min/1.73 sqM); Potassium 3.4 mmol/L (3.5-5.1); Sodium 134 mmol/L (137-145); Total Bilirubin 0.6 mg/dL (0.2-1.3); Total Protein 5.7 g/dL (6.3-8.2)
--- NOTE | 2023-06-14 08:08 | US ---
EXAMINATION TYPE: US chest DATE OF EXAM: 06/14/2023 COMPARISON: NONE CLINICAL INDICATION: Female, 77 years old with history of Bilateral pleural effusion; pleural effusio n TECHNIQUE: Targeted ultrasound of the posterior lower bilateral hemithoraces EXAM MEASUREMENTS: Right Pleural Effusion pocket size: 7.1 cm Right skin surface to fluid distance: 1.9 cm Left Pleural Effusion pocket size: 3.0 cm Left skin surface to fluid distance: 1.4 cm Right side marked for possible thoracentesis outside the dept. Pulmonologists are able to review the images in the patient?s EMR. IMPRESSIONS: Moderate effusion on the right and small on the left.
[2023-06-14] MEDS ORDERED: HEPARIN SODIUM 1,000 UN/ML (10ML VL) ONE (08:49)
--- NOTE | 2023-06-14 08:52 | P.GSCN ---
History of Present Illness History of present illness: 77-year-old white female patient came with the respiratory failure also patient has a large pleural effusion patient went for thoracentesis. Patient has Dialysis management done at home I was consulted for placement of a dialysis catheter Neck is supple no bruit appreciated Chest is some crackles bilateral more on the right side Abdomen soft nontender patient has peripheral dialysis Femorals are 1+ plan is placement of a dialysis catheter risk and complication discussed Past Medical History Past Medical History: GERD/Reflux, Hyperlipidemia, Hypertension, Osteoarthritis (OA), Renal Disease Additional Past Medical History / Comment(s): hx of gout, states stage 4 renal disease, brain aneurysm x 2, see Dr Sow H&P, told TIA's- no residual refects, varicose veins, "bad sinus problems", hx bleeding ulcer, constipation, History of Any Multi-Drug Resistant Organisms: None Reported Past Surgical History: Heart Catheterization, Hernia Repair, Hysterectomy, Tonsi llectomy Additional Past Surgical History / Comment(s): maria del rosario cataracts, cyst removed left upper leg , maria del rosario great toe-spurs removed, Past Anesthesia/Blood Transfusion Reactions: No Reported Reaction Past Psychological History: No Psychological Hx Reported Smoking Status: Former smoker - Past Family History Mother Family Medical History: No Reported History Medications and Allergies Home Medications Medication Instructions Recorded Confirmed Type Atorvastatin [Lipitor] 40 mg PO PC-SUPPER 07/27/20 06/12/23 History Venlafaxine HCl [Effexor XR] 150 mg PO DAILY 07/27/20 06/12/23 History allopurinoL [Zyloprim] 100 mg PO PC-BID 07/27/20 06/12/23 History calcitrioL [Calcitriol] 0.25 mcg PO MOWEFR 07/27/20 06/12/23 History traMADol HCL [Ultram] 50 mg PO HS 07/27/20 06/12/23 History Clopidogrel Bisulfate [Plavix] 75 mg PO PC-SUPPER 03/08/21 06/12/23 History cycloSPORINE [Restasis] 1 applicator BOTH EYES BID 03/08/21 06/12/23 History Aspirin [Adult Low Dose Aspirin EC] 81 mg PO PC-SUPPER 03/01/23 06/12/23 History Cyanocobalamin (Vitamin B-12) 1,000 mcg PO DAILY 03/01/23 06/12/23 History [Vitamin B-12] Ergocalciferol [Vitamin D2 (1250 1,250 mcg PO MO 03/01/23 06/12/23 History Mcg = 71371 Iu)] amLODIPine [Norvasc] 5 mg PO HS PRN 03/01/23 06/12/23 History carvediloL 12.5 mg PO BID 03/01/23 06/12/23 History Famotidine [Pepcid] 20 mg PO PC-BID 06/12/23 06/12/23 History Folic Acid/Vit B Complex and C 0.8 mg PO HS 06/12/23 06/12/23 History [Nephro Vitamins Tablet] Lactulose [Constulose] 20 gm PO BID PRN 06/12/23 06/12/23 History Potassium Chloride ER [K-Dur 10] 10 meq PO DAILY 06/12/23 06/12/23 History Torsemide [Demadex] 20 mg PO DAILY 06/12/23 06/12/23 History Allergies Allergy/AdvReac Type Severity Reaction Status Date / Time ciprofloxacin [From Cipro] Allergy "so weak I Verified 06/12/23 21:37 couldn't stand up" codeine Allergy Unknown Verified 06/12/23 21:37 levofloxacin [From Levaquin] Allergy "so weak I Verified 06/12/23 21:37 couldn't even stand up" Penicillins Allergy Rash/Hives Verified 06/12/23 21:37 Sulfa (Sulfonamide Allergy Unknown Verified 06/12/23 21:37 Antibiotics) Childhood diphenhydramine AdvReac "have Verified 06/12/23 21:37 opposite reaction, high energy for 3 days" Surgical - Exam Vital Signs Pulse Resp BP Pulse Ox 104 H 28 H 158/115 94 L 06/12/23 20:49 06/12/23 20:49 06/12/23 20:49 06/12/23 20:49 Results - Labs 06/14/23 06:43 06/14/23 06:43 Abnormal Lab Results - Last 24 Hours (Table) 06/14/23 06/14/23 06/14/23 Range/Units 05:49 06:43 06:43 WBC 15.4 H (3.8-10.6) k/uL RBC 3.49 L (3.80-5.40) m/uL Hgb 9.8 L (11.4-16.0) gm/dL Hct 30.7 L (34.0-46.0) % RDW 18.1 H (11.5-15.5) % Neutrophils # 13.2 H (1.3-7.7) k/uL Sodium 134 L (137-145) mmol/L Potassium 3.4 L (3.5-5.1) mmol/L Chloride 96 L (98-107) mmol/L BUN 62 H (7-17) mg/dL Creatinine 5.25 H (0.52-1.04) mg/dL Glucose 121 H (74-99) mg/dL POC Glucose (mg/dL) 128 H (70-110) mg/dL Total Protein 5.7 L (6.3-8.2) g/dL Albumin 3.3 L (3.5-5.0) g/dL Microbiology - Last 24 Hours (Table) 06/12/23 23:30 Gram Stain - Preliminary Pleural Fluid Diabetes panel 06/14/23 Range/Units 06:43 Sodium 134 L (137-145) mmol/L Potassium 3.4 L (3.5-5.1) mmol/L Chloride 96 L (98-107) mmol/L Carbon Dioxide 26 (22-30) mmol/L BUN 62 H (7-17) mg/dL Creatinine 5.25 H (0.52-1.04) mg/dL Glucose 121 H (74-99) mg/dL Calcium 9.4 (8.4-10.2) mg/dL AST 33 (14-36) U/L ALT 22 (4-34) U/L Alkaline Phosphatase 61 (38-126) U/L Total Protein 5.7 L (6.3-8.2) g/dL Albumin 3.3 L (3.5-5.0) g/dL Calcium panel 06/14/23 Range/Units 06:43 Calcium 9.4 (8.4-10.2) mg/dL Albumin 3.3 L (3.5-5.0) g/dL Pituitary panel 06/14/23 Range/Units 06:43 Sodium 134 L (137-145) mmol/L Potassium 3.4 L (3.5-5.1) mmol/L Chloride 96 L (98-107) mmol/L Carbon Dioxide 26 (22-30) mmol/L BUN 62 H (7-17) mg/dL Creatinine 5.25 H (0.52-1.04) mg/dL Glucose 121 H (74-99) mg/dL Calcium 9.4 (8.4-10.2) mg/dL Adrenal panel 06/14/23 Range/Units 06:43 Sodium 134 L (137-145) mmol/L Potassium 3.4 L (3.5-5.1) mmol/L Chloride 96 L (98-107) mmol/L Carbon Dioxide 26 (22-30) mmol/L BUN 62 H (7-17) mg/dL Creatinine 5.25 H (0.52-1.04) mg/dL Glucose 121 H (74-99) mg/dL Calcium 9.4 (8.4-10.2) mg/dL Total Bilirubin 0.6 (0.2-1.3) mg/dL AST 33 (14-36) U/L ALT 22 (4-34) U/L Alkaline Phosphatase 61 (38-126) U/L Total Protein 5.7 L (6.3-8.2) g/dL Albumin 3.3 L (3.5-5.0) g/dL
[2023-06-14] MEDS ORDERED: SODIUM CHLORIDE 0.9% 250 ML IV ONE (08:53)
[2023-06-14] MEDS: MIDAZOLAM 2 MG/2 ML VIAL IVP ONE ×2 (08:57→09:00)
[2023-06-14] MEDS ORDERED: LIDOCAINE 1% INJ 10MG/ML (20 ML MDV) SQ ONE (09:00)
[2023-06-14] MEDS ORDERED: LIDOCAINE 2% (PF) 20 MG/ML 5 ML VIAL SQ ONE (09:10)
[2023-06-14] MEDS ORDERED: HEPARIN SODIUM 1,000 UN/ML (10ML VL) IVP ONE (09:20)
--- NOTE | 2023-06-14 09:54 | IR ---
EXAMINATION TYPE: IR cvc insert central tunneled DATE OF EXAM: 06/14/2023 COMPARISON: NONE HISTORY: Fluoroscopy time. Fluoroscopy was provided to the referring clinician.
[2023-06-14] MEDS ORDERED: FUROSEMIDE 10 MG/ML 10 ML VIAL IV STA (10:39)
--- NOTE | 2023-06-14 10:46 | XR ---
EXAMINATION TYPE: XR chest 1V portable DATE OF EXAM: 06/14/2023 Comparison: 06/13/2023 Clinical History: 77-year-old female dialysis catheter placement confirmation Findings: Right-sided double-lumen hemodialysis catheter has been placed in the interval with tips at the mid S VC level. Right heart margin remains obscured by adjacent pleural parenchymal opacity. Suspect mild c ardiomegaly. Ongoing moderate right and small left effusions. Old healed surgical neck fracture of th e proximal right humerus. No appreciable pneumothorax. Impression: Placement of right-sided double-lumen hemodialysis catheter. Tips at the mid SVC level. Ongoing moder ate right and small left pleural effusions with adjacent atelectasis and/or consolidation.
[2023-06-14] MEDS ORDERED: DESMOPRESSIN ACETATE 20 MCG in SODIUM CHLORIDE 0.9% 50 ML IVPB ONE (11:00)
--- NOTE | 2023-06-14 11:03 | OP ---
OPERATIVE REPORT DATE OF SERVICE : PREOPERATIVE DIAGNOSIS: Acute on chronic renal failure. PROCEDURE PERFORMED: Ultrasound-guided 19 cm dialysis catheter placed, right jugular approach with local anesthesia and IV sedation. DESCRIPTION OF PROCEDURE: The patient was brought to the asset availability leader. The right side of the neck and chest was prepped and drapes applied in a sterile manner. 1% lidocaine plain infiltrated in neck and chest area. Ultrasound-guided micropuncture introduced in right jugular vein, micropuncture guidewire was passed and a 4-Liberian dilator was advanced on top of the guidewire. Then, we passed a regular guidewire which was parked at the inferior vena cava. A tunnel was created. Through the tunnel, we brought 19 cm dialysis catheter. Then, we placed the dilator on the top of the guidewire. Then, we placed a sheath on the top of the guidewire. Through the sheath, we introduced the dialysis catheter. Sheath was removed. The tip of catheter in superior vena cava atrial junction flushed with heparin saline and hep-locked. Incision was closed with Vicryl and nylon. Dressing applied. The patient tolerated the procedure well. PLAN: X-ray of the chest. The patient can have a dialysis after chest x-ray. MMODL / IJN: [id number] /
--- NOTE | 2023-06-14 11:19 | P.PN ---
Subjective Patient is seen for follow-up for end-stage renal disease maintained on peritoneal dialysis. She was admitted to the hospital with shortness of breath and large right pleural effusion for which patient had thoracentesis of about 3.2 L of fluid. Subsequently patient had another exchange for peritoneal dialysis last evening and developed worsening shortness of breath about 45 minutes after instillation of PD fluid. Patient has a pleuroperitoneal fistula and at this time a toenail dialysis is on hold. Patient is status post IJ permacath placement for temporary hemodialysis. There is bruising noted from the site of IJ catheter placement. Scheduled for hemodialysis today. Objective - Vital Signs Vital signs: Vital Signs Temp 98.1 F 06/14/23 07:36 Pulse 83 06/14/23 07:36 Resp 22 06/14/23 07:36 BP 164/78 06/14/23 07:36 Pulse Ox 95 06/14/23 07:36 FiO2 60 06/14/23 01:10 Intake & Output 06/13/23 06/14/23 06/14/23 18:59 06:59 18:59 Intake Total 10 110 Output Total 75 705 Balance -75 -695 110 Weight 71.214 kg 67 kg Intake: IV 10 110 Invasive Line 1 10 10 Output: Urine 75 705 Other: Voiding Method Indwelling Catheter Indwelling Catheter # Voids 0 - Exam Patient is awake, comfortable, in no acute distress Examination of the heart S1 and S2 Examination of the lungs bilateral breath sounds are heard, decrease at the bases, particularly right side Bruising noted from the site of IJ catheter placement Abdomen is soft nontender Examination lower extremity shows edema trace bilaterally 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 exam grossly intact - Labs CBC & Chem 7: 06/14/23 06:43 06/14/23 06:43 Labs: Abnormal Lab Results - Last 24 Hours (Table) 06/14/23 06/14/23 06/14/23 Range/Units 05:49 06:43 06:43 WBC 15.4 H (3.8-10.6) k/uL RBC 3.49 L (3.80-5.40) m/uL Hgb 9.8 L (11.4-16.0) gm/dL Hct 30.7 L (34.0-46.0) % RDW 18.1 H (11.5-15.5) % Neutrophils # 13.2 H (1.3-7.7) k/uL Sodium 134 L (137-145) mmol/L Potassium 3.4 L (3.5-5.1) mmol/L Chloride 96 L (98-107) mmol/L BUN 62 H (7-17) mg/dL Creatinine 5.25 H (0.52-1.04) mg/dL Glucose 121 H (74-99) mg/dL POC Glucose (mg/dL) 128 H (70-110) mg/dL Total Protein 5.7 L (6.3-8.2) g/dL Albumin 3.3 L (3.5-5.0) g/dL Microbiology - Last 24 Hours (Table) 06/12/23 23:30 Gram Stain - Preliminary Pleural Fluid Assessment and Plan Assessment: 1. End-stage renal disease maintained on peritoneal dialysis. 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 Acute hypoxic respiratory failure secondary to large right pleural effusion and fluid overload 3. Volume overload associated with recent decreased UF with exchanges. 4. Hypertension with CK D stage IV 5. Lactic acidosis 6. Large right pleural effusion most likely associated with peritoneal dialysis with pleuroperitoneal leak, status post right thoracentesis with 3.2 L of fluid removed. 7. Dosing from site of IJ permacath placement Plan: Hemodialysis today with UF of about 2 L DDAVP 1 for bleeding Continue to hold peritoneal dialysis for now
[2023-06-14 11:43] LABS: Glucose,Whole Blood 117 mg/dL (70-110)
--- NOTE | 2023-06-14 13:09 | P.PN ---
Subjective Progress Note Date: 06/14/23 Principal diagnosis: right-sided pleural effusion I am seeing this patient in consultation today 06/13/2023 in the emergency room for a large right-sided pleural effusion. Patient is a 77-year-old female with end-stage renal disease peritoneal dialysis, hypertension, hyperlipidemia, TIA. The patient presented to the emergency room via EMS last night with complaints of acute respiratory distress that started yesterday. Apparently, the patient receives peritoneal dialysis on a regular basis at home. The has been instilling approximately 2 L of peritoneal dialysate with each round. He has only been draining approximately 1 L back each time. Patient's states that they tried multiple maneuvers to drain the fluid. Denies any fevers, chills, myalgias, abdominal pain, or bloody or purulent drainage from the PD cath. On arrival to the emergency room, the patient was found to have a large right pleural effusion causing mediastinal shift to the left. The patient underwent a large-volume thoracentesis by ER physician with a total of 3.2 L of fluid removed. The fluid appears clear, and will be sent for cytology. The patient denies any history of lung cancer or prior pleural effusions. Repeat chest x-ray following the thoracentesis shows marked improvement of the right sided pleural effusion, and there were small bilateral pleural effusions. No longer any tracheal or mediastinal shift. No evidence of pneumothoraces. Patient reports improvement in her work of breathing. She is currently on the BiPAP with settings of 12/6 and FiO2 60%. This will likely be able to be weaned off later this morning. CBC on arrival shows a WBC count of 15.6, hemoglobin 11.5, hematocrit 36.5, platelets 255. BMP shows sodium 133, potassium 3.8, chloride 96, serum bicarbonate 23, BUN 39, creatinine 3.58, glucose 282. Lactic acid level was elevated at 4.4 and is down to 3.8. Troponin 0.014. NT proBNP elevated at 3090. Nephrology was consulted for management of peritoneal dialysis and the PD catheter. As stated above, the patient appears much more c omfortable, and will be monitored on the cardiac stepdown unit. Patient was reevaluated today on 06/14/2023, patient is developing pleural effusion on the right side again. Apparently peritoneal dialysis was attempted again yesterday, and the patient could not have peritoneal dialysis, unsuccessful, she developed and she also developed worsening shortness of breath. Hence the patient had a temporary hemodialysis catheter placed by vascular surgery, and she will have hemodialysis today. In the meantime I reviewed the chest x-ray, reviewed the ultrasound of the chest, effusion is still relatively small, but may or may not require thoracentesis depending on how the patient responds to hemodialysis/ultrafiltration which is scheduled to be done today. Patient is on 6 L nasal cannula with O2 sat of 95%.labs from today were all reviewed BUN is 62 creatinine 5.5. CBC is relatively unremarka ble. Objective - Vital Signs Vital signs: Vital Signs Temp 97.7 F 06/14/23 12:00 Pulse 97 06/14/23 12:00 Resp 18 06/14/23 12:00 BP 157/86 06/14/23 12:00 Pulse Ox 94 L 06/14/23 12:00 FiO2 60 06/14/23 01:10 Intake & Output 06/13/23 06/14/23 06/14/23 18:59 06:59 18:59 Intake Total 10 110 Output Total 75 705 Balance -75 -695 110 Weight 71.214 kg 67 kg Intake: IV 10 110 Invasive Line 1 10 10 Output: Urine 75 705 Other: Voiding Method Indwelling Catheter Indwelling Catheter Indwelling Catheter # Voids 0 - Exam Physical Exam: Revealed 77-year-old female in no distress on 6 L nasal cannula Head: Atraumatic, normocephalic. HEENT:[Neck is supple.] [No neck masses.] [No thyromegaly.] [No JVD.]right subclavian hemodialysis catheter is noted. Chest: [diminished breath sounds and dullness at the right base. Cardiac Exam: [Normal S1 and S2, no S3 gallop, no murmur.] Abdomen: [Soft, nontender, no megaly, no rebound, no guarding, normal bowel sounds.] Extremities: [No clubbing, trace of bipedal edema is noted. Neurological Exam: [No focal neurologic deficit.] psychiatric: Normal mood affect and normal mental status examination. - Labs CBC & Chem 7: 06/14/23 06:43 06/14/23 06:43 Labs: Abnormal Lab Results - Last 24 Hours (Table) 06/14/23 06/14/23 06/14/23 Range/Units 05:49 06:43 06:43 WBC 15.4 H (3.8-10.6) k/uL RBC 3.49 L (3.80-5.40) m/uL Hgb 9.8 L (11.4-16.0) gm/dL Hct 30.7 L (34.0-46.0) % RDW 18.1 H (11.5-15.5) % Neutrophils # 13.2 H (1.3-7.7) k/uL Sodium 134 L (137-145) mmol/L Potassium 3.4 L (3.5-5.1) mmol/L Chloride 96 L (98-107) mmol/L BUN 62 H (7-17) mg/dL Creatinine 5.25 H (0.52-1.04) mg/dL Glucose 121 H (74-99) mg/dL POC Glucose (mg/dL) 128 H (70-110) mg/dL Total Protein 5.7 L (6.3-8.2) g/dL Albumin 3.3 L (3.5-5.0) g/dL 06/14/23 Range/Units 11:40 WBC (3.8-10.6) k/uL RBC (3.80-5.40) m/uL Hgb (11.4-16.0) gm/dL Hct (34.0-46.0) % RDW (11.5-15.5) % Neutrophils # (1.3-7.7) k/uL Sodium (137-145) mmol/L Potassium (3.5-5.1) mmol/L Chloride (98-107) mmol/L BUN (7-17) mg/dL Creatinine (0.52-1.04) mg/dL Glucose (74-99) mg/dL POC Glucose (mg/dL) 117 H (70-110) mg/dL Total Protein (6.3-8.2) g/dL Albumin (3.5-5.0) g/dL Microbiology - Last 24 Hours (Table) 06/12/23 23:30 Gram Stain - Preliminary Pleural Fluid Body Fluid Culture - Preliminary Assessment and Plan Assessment: impression:Large right-sided pleural effusion status post large volume thoracentesis with a total of 3.2 L of fluid removed. this was done by the ER physician. Recurrent right-sided pleural effusion may or may not require repeat thoracentesis will wait until the patient undergoes hemodialysis and follow-up chest x-ray in the morning. Acute hypoxemic respiratory failure secondary to above End-stage renal disease with peritoneal dialysis, patient has had troubles lillian alayna her PD cath Lactic acidemia, resolved. Benign essential hypertension Hyperlipidemia History of TIA History of gout Remote ex-smoker status post temporary hemodialysis catheter placement. Postoperative day #0 Recommendation: Continue present supportive care measures Continue hemodialysis for now No need to perform a thoracentesis at this point but will decide in the next 24 hours whether a thoracentesis is necessary. Continue to address issues related to the peritoneal catheter. Discussed her condition with nephrology on the case. We will continue to follow. Time with Patient: Less than 30
--- NOTE | 2023-06-14 13:24 | P.PN ---
Subjective Progress Note Date: 06/14/23 patient 77-year-old lady with past medical history significant for end-stage renal disease on dialysis who presented to the ER because of shortness of breath. Patient does peritoneal dialysis at home and states that for the last 2 days she was getting more short of breath. Shortness of breath was present on rest as well as exertion. Patient stated that normally they use 2 L of fluid for peritoneal dialysis but she was only getting 1 L of fluid in return. Denied any chest pain. Because of worsening shortness of breath, EMS was called and patient was found to be saturating in 60s on room air, patient was placed on BiPAP and was brought to the ER. In the ER, patient underwent imaging and labs Initial lab work done in the ER showed he received 15.6, hemoglobin 11.5, platel et count 255, sodium 133, potassium 3.8, chloride 96, BUN 39, creatinine 3.58 phosphorous 5.8, troponin 0.014 Chest x-ray done in the ER showed interval development of a large suspected right pleural effusion with associated atelectasis Patient underwent thoracentesis in the ER and was admitted to medicine service 06/14. Patient seen and examined. Patient had dialysis catheter placed, will be undergoing hemodialysis session today REVIEW OF SYSTEMS: CONSTITUTIONAL: No fever, no malaise,. CARDIOVASCULAR: No chest pain, no palpitations, no syncope. PULMONARY: No shortness of breath, no cough, GASTROINTESTINAL: No diarrhea, no nausea, no vomiting, no abdominal pain. NEUROLOGICAL: No headaches, no weakness, PHYSICAL EXAMINATION: GENERAL: The patient is alert and oriented x3, not in any acute distress. Well developed, well nourished. HEENT: Pupils are round and equally reacting to light. EOMI. No scleral icterus. No conjunctival pallor. Normocephalic, atraumatic. No pharyngeal erythema. No thyromegaly. CARDIOVASCULAR: S1 and S2 present. No murmurs, rubs, or gallops. PULMONARY: Diminished breath sounds at the bases bilaterally. ABDOMEN: Soft, nontender, nondistended, normoactive bowel sounds. No palpable organomegaly. MUSCULOSKELETAL: No joint swelling or deformity. EXTREMITIES: No cyanosis, clubbing, or pedal edema. NEUROLOGICAL: Gross neurological examination did not reveal any focal deficits. SKIN: No rashes. Assessment and plan Bacterial pneumonia Acute hypoxemic respiratory failure Right pleural effusion status post thoracentesis End-stage renal disease on peritoneal dialysis Lactic acidemia Benign essential hypertension Hyperlipidemia History of TIA History of gout Monitor vital signs Monitor CBC Monitor CMP Continue telemetry monitoring Follow-up on blood cultures Follow-up on Sputum cultures Continue IV cefepime Continue breathing treatments Vascular surgery consulted for temporary dialysis catheter placement Follow-up on pulmonary recommendations Follow-up in ID recommendations follow-up on nephrology recommendations Labs and medication were reviewed.. Continue same treatment. Continue with symptomatic treatment. Resume home medication. Monitor labs and vitals. DVT and GI prophylaxis. Further recommendations as per clinical course of the patient Dictation was produced using [employer] dictation software. please excuse any gramma tical, word or spelling errors. Objective - Vital Signs Vital signs: Vital Signs Temp 98.1 F 06/14/23 07:36 Pulse 83 06/14/23 07:36 Resp 22 06/14/23 07:36 BP 164/78 06/14/23 07:36 Pulse Ox 95 06/14/23 07:36 FiO2 60 06/14/23 01:10 Intake & Output 06/13/23 06/14/23 06/14/23 18:59 06:59 18:59 Intake Total 10 100 Output Total 75 705 Balance -75 -695 100 Weight 71.214 kg 67 kg Intake: IV 10 100 Invasive Line 1 10 Output: Urine 75 705 Other: Voiding Method Indwelling Catheter Indwelling Catheter # Voids 0 - Labs CBC & Chem 7: 06/14/23 06:43 06/14/23 06:43 Labs: Abnormal Lab Results - Last 24 Hours (Table) 06/14/23 06/14/23 06/14/23 Range/Units 05:49 06:43 06:43 WBC 15.4 H (3.8-10.6) k/uL RBC 3.49 L (3.80-5.40) m/uL Hgb 9.8 L (11.4-16.0) gm/dL Hct 30.7 L (34.0-46.0) % RDW 18.1 H (11.5-15.5) % Neutrophils # 13.2 H (1.3-7.7) k/uL Sodium 134 L (137-145) mmol/L Potassium 3.4 L (3.5-5.1) mmol/L Chloride 96 L (98-107) mmol/L BUN 62 H (7-17) mg/dL Creatinine 5.25 H (0.52-1.04) mg/dL Glucose 121 H (74-99) mg/dL POC Glucose (mg/dL) 128 H (70-110) mg/dL Total Protein 5.7 L (6.3-8.2) g/dL Albumin 3.3 L (3.5-5.0) g/dL Microbiology - Last 24 Hours (Table) 06/12/23 23:30 Gram Stain - Preliminary Pleural Fluid
[2023-06-14] MEDS: allopurinoL 100 MG TAB PO SCH ×2 (15:27→18:47)
[2023-06-14] MEDS: cycloSPORINE 0.05% OPHTH 0.4 ML DROPERETTE BOTH EYES SCH ×2 (15:27→21:20)
[2023-06-14] MEDS: CEFEPIME 1 GM in SODIUM CHLORIDE 0.9% 50 ML IVPB SCH (16:36)
[2023-06-14] MEDS: CYANOCOBALAMIN 500 MCG TAB PO SCH (16:37)
[2023-06-14] MEDS: TORSEMIDE 20 MG TAB PO SCH (16:38)
[2023-06-14] MEDS: VENLAFAXINE HCL ER 150 MG CAP PO SCH (16:38)
[2023-06-14 17:09] LABS: Hepatitis B Surface AB- Quant 3.5 mIU/mL; Hepatitis B Surface Antigen Nonreactive
[2023-06-14] MEDS: FAMOTIDINE 20 MG TAB PO SCH (18:46)
[2023-06-14] MEDS: ASPIRIN 81 MG PO SCH (18:47)
[2023-06-14] MEDS: CLOPIDOGREL 75 MG TAB PO SCH (18:47)
[2023-06-14] MEDS: ATORVASTATIN 40 MG TAB PO SCH (18:47)
[2023-06-14] MEDS: FOLIC ACID-VIT B COMPLEX-VIT C 1 CAP PO SCH (21:09)
[2023-06-14] MEDS: traMADol 50 MG TAB PO SCH (21:15)
[2023-06-15] MEDS: carvediloL 12.5 MG TAB PO SCH ×2 (06:41→15:50)
[2023-06-15] MEDS: FAMOTIDINE 20 MG TAB PO SCH (07:50)
[2023-06-15] MEDS: allopurinoL 100 MG TAB PO SCH ×2 (07:50→18:23)
[2023-06-15] MEDS: CYANOCOBALAMIN 500 MCG TAB PO SCH (07:50)
[2023-06-15] MEDS: VENLAFAXINE HCL ER 150 MG CAP PO SCH (07:51)
[2023-06-15] MEDS: TORSEMIDE 20 MG TAB PO SCH (07:51)
[2023-06-15] MEDS: CEFEPIME 1 GM in SODIUM CHLORIDE 0.9% 50 ML IVPB SCH (07:51)
[2023-06-15] MEDS: cycloSPORINE 0.05% OPHTH 0.4 ML DROPERETTE BOTH EYES SCH ×2 (07:52→21:51)
[2023-06-15] MEDS: IPRATROPIUM-ALBUTEROL 3 ML NEB INHALATION PRN (08:10)
--- NOTE | 2023-06-15 11:56 | P.PN ---
Subjective Patient is seen for follow-up for end-stage renal disease maintained on peritoneal dialysis. She was admitted to the hospital with shortness of breath and large right pleural effusion for which patient had thoracentesis of about 3.2 L of fluid. 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 Hemodialysis catheter was placed 06/14/2023 and patient tolerated her first hemodialysis treatment fairly well. Patient was complaining of weakness and had orthostatic hypotension this morning. Still requiring 6 L of oxygen. No nausea or vomiting. Objective - Vital Signs Vital signs: Vital Signs Temp 98.3 F 06/15/23 07:30 Pulse 60 06/15/23 08:22 Resp 18 06/15/23 07:30 BP 87/51 06/15/23 07:44 Pulse Ox 96 06/15/23 07:30 FiO2 60 06/15/23 00:33 Intake & Output 06/14/23 06/15/23 06/15/23 18:59 06:59 18:59 Intake Total 818 250 Output Total 800 275 Balance 18 -275 250 Weight 72.3 kg Intake: IV 110 10 Invasive Line 1 10 10 Intake, IV Titration 50 Amount Desmopressin Acetate 20 50 mcg In Sodium Chloride 0. 9% 50 ml @ 200 mls/hr IVPB ONCE ONE Rx#: [id number] Oral 658 240 Output: Urine 800 275 Other: Voiding Method Indwelling Catheter Indwelling Catheter Indwelling Catheter - Exam Patient is awake, comfortable, in no acute distress Examination of the heart S1 and S2 Examination of the lungs bilateral breath sounds are heard, decrease at the bases, particularly right side No active bleeding noted from the catheter site today. 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 End-stage renal disease maintained on peritoneal dialysis. 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 Acute hypoxic respiratory failure secondary to large right pleural effusion and fluid overload 3. Volume overload associated with recent decreased UF with exchanges. 4. Hypertension with CK D stage IV 5. Lactic acidosis 6. Large right pleural effusion most likely associated with peritoneal dialysis with pleuroperitoneal leak, status post right thoracentesis with 3.2 L of fluid removed. 7. Oozing from site of IJ permacath placement, improved. Plan: Hemodialysis today as patient will be on a TTS schedule. Patient's blood pressure is low therefore we will not be able to get much fluid off. Patient remains on 5 L nasal cannula. Chest x-ray will be repeated for possible need for repeat thoracentesis. Discussed with pulmonology. Continue to hold peritoneal dialysis for now
--- NOTE | 2023-06-15 13:04 | P.PN ---
Subjective Progress Note Date: 06/15/23 Principal diagnosis: right-sided pleural effusion I am seeing this patient in consultation today 06/13/2023 in the emergency room for a large right-sided pleural effusion. Patient is a 77-year-old female with end-stage renal disease peritoneal dialysis, hypertension, hyperlipidemia, TIA. The patient presented to the emergency room via EMS last night with complaints of acute respiratory distress that started yesterday. Apparently, the patient receives peritoneal dialysis on a regular basis at home. The has been instilling approximately 2 L of peritoneal dialysate with each round. He has only been draining approximately 1 L back each time. Patient's states that they tried multiple maneuvers to drain the fluid. Denies any fevers, chills, myalgias, abdominal pain, or bloody or purulent drainage from the PD cath. On arrival to the emergency room, the patient was found to have a large right pleural effusion causing mediastinal shift to the left. The patient underwent a large-volume thoracentesis by ER physician with a total of 3.2 L of fluid removed. The fluid appears clear, and will be sent for cytology. The patient denies any history of lung cancer or prior pleural effusions. Repeat chest x-ray following the thoracentesis shows marked improvement of the right sided pleural effusion, and there were small bilateral pleural effusions. No longer any tracheal or mediastinal shift. No evidence of pneumothoraces. Patient reports improvement in her work of breathing. She is currently on the BiPAP with settings of 12/6 and FiO2 60%. This will likely be able to be weaned off later this morning. CBC on arrival shows a WBC count of 15.6, hemoglobin 11.5, hematocrit 36.5, platelets 255. BMP shows sodium 133, potassium 3.8, chloride 96, serum bicarbonate 23, BUN 39, creatinine 3.58, glucose 282. Lactic acid level was elevated at 4.4 and is down to 3.8. Troponin 0.014. NT proBNP elevated at 3090. Nephrology was consulted for management of peritoneal dialysis and the PD catheter. As stated above, the patient appears much more c omfortable, and will be monitored on the cardiac stepdown unit. Patient was reevaluated today on 06/14/2023, patient is developing pleural effusion on the right side again. Apparently peritoneal dialysis was attempted again yesterday, and the patient could not have peritoneal dialysis, unsuccessful, she developed and she also developed worsening shortness of breath. Hence the patient had a temporary hemodialysis catheter placed by vascular surgery, and she will have hemodialysis today. In the meantime I reviewed the chest x-ray, reviewed the ultrasound of the chest, effusion is still relatively small, but may or may not require thoracentesis depending on how the patient responds to hemodialysis/ultrafiltration which is scheduled to be done today. Patient is on 6 L nasal cannula with O2 sat of 95%.labs from today were all reviewed BUN is 62 creatinine 5.5. CBC is relatively unremarka ble. Patient was reevaluated today on 06/15/2023, underwent hemodialysis yesterday, she is now on 4 L nasal cannula does not seem to be in any distress, I am considering a right-sided thoracentesis on this patient because of her pleural effusion, however before making a final decision on thoracentesis would like to check chest x-ray today and decide whether a thoracentesis is necessary. WBC count is 15.4 hemoglobin 9.8 electrolytes are normal BUN is 62 creatinine 5.5. Patient is complaining of generalized weakness. Her blood pressure is 138/88, Objective - Vital Signs Vital signs: Vital Signs Temp 97.8 F 06/15/23 12:00 Pulse 62 06/15/23 12:00 Resp 18 06/15/23 12:00 BP 138/88 06/15/23 12:00 Pulse Ox 93 L 06/15/23 12:00 FiO2 60 06/15/23 00:33 Intake & Output 06/14/23 06/15/23 06/15/23 18:59 06:59 18:59 Intake Total 818 300 Output Total 800 275 Balance 18 -275 300 Weight 72.3 kg Intake: IV 110 10 Invasive Line 1 10 10 Intake, IV Titration 50 50 Amount Cefepime 1 gm In Sodium 50 Chloride 0.9% 50 ml @ 12. 5 mls/hr IVPB Q24HR [facility] Rx#:[id number] Desmopressin Acetate 20 50 mcg In Sodium Chloride 0. 9% 50 ml @ 200 mls/hr IVPB ONCE ONE Rx#: [id number] Oral 658 240 Output: Urine 800 275 Other: Voiding Method Indwelling Catheter Indwelling Catheter Indwelling Catheter - Exam Physical Exam: Revealed 77-year-old female in no distress on 4 L nasal cannula Head: Atraumatic, normocephalic. HEENT:[Neck is supple.] [No neck masses.] [No thyromegaly.] [No JVD.]right subclavian hemodialysis catheter is noted. Chest: [diminished breath sounds and dullness at the right base. Cardiac Exam: [Normal S1 and S2, no S3 gallop, no murmur.] Abdomen: [Soft, nontender, no megaly, no rebound, no guarding, normal bowel sounds.] Extremities: [No clubbing, trace of bipedal edema is noted. Neurological Exam: [No focal neurologic deficit.] psychiatric: Normal mood affect and normal mental status examination. - Labs CBC & Chem 7: 06/14/23 06:43 06/14/23 06:43 Labs: Abnormal Lab Results - Last 24 Hours (Table) 06/14/23 Range/Units 06:43 Procalcitonin 0.74 H (0.02-0.09) ng/mL Microbiology - Last 24 Hours (Table) 06/12/23 23:30 Gram Stain - Preliminary Pleural Fluid Body Fluid Culture - Preliminary 06/13/23 11:06 Blood Culture - Preliminary Blood 06/13/23 10:14 Blood Culture - Preliminary Blood Assessment and Plan Assessment: impression:Large right-sided pleural effusion status post large volume thoracentesis with a total of 3.2 L of fluid removed. this was done by the ER physician. Recurrent right-sided pleural effusion may or may not require repeat thoracentesis, will check chest x-ray today and make a decision on thoracentesis Acute hypoxemic respiratory failure secondary to above End-stage renal disease with peritoneal dialysis, patient has had troubles draining her PD cath Lactic acidemia, resolved. Benign essential hypertension Hyperlipidemia History of TIA History of gout Remote ex-smoker status post temporary hemodialysis catheter placement. Postoperative day #1 Recommendation: Continue present supportive care measures We'll decide on possible thoracentesis after removing the chest x-ray which I have ordered today per We will continue to follow. Time with Patient: Less than 30
--- NOTE | 2023-06-15 13:10 | P.CRDCN ---
History of Present Illness Consult date: 06/15/23 Consult reason: atrial fibrillation History of present illness: History of present illness: This is a 77-year-old female patient of Dr. doe already with past medical history of hypertension, hyperlipidemia, end-stage renal disease with CAPD. We have been asked to evaluate the patient for atrial fibrillation. Patient presented to the hospital on 06/12 with respiratory distress found to have a large right- sided pleural effusion. Patient has had difficulty with peritoneal dialysis with fluid overload. Patient underwent a thoracentesis in the emergency center removal of 3.2 L. Peritoneal dialysis was attempted but unsuccessful patient developed worsening shortness of breath. Yesterday patient had an IJ permacath placement for hemodialysis which was placed on 06/13. Patient started hemodialysis yesterday. Telemetry currently showing sinus rhythm. She states her breathing is much improved but not back to her normal. She denies feeling palpitations or other symptoms at the time of onset of Afib. She has converted to sinus this morning. Patient is undergoing HD this morning. EKG obtained on 06/14 at 1125 revealed atrial fibrillation with ventricular rate of 115 Chest x-ray: Performed on 06/14 revealed placement of right-sided double-lumen hemodialysis catheter ongoing moderate right and small left pleural effusions with adjacent atelectasis and/or consolidation Home cardiac medications:Aspirin 81 mg daily, Lipitor 40 mg daily, Coreg 12.5 mg twice daily, Plavix 75 mg daily, potassium chloride 10 mEq daily, torsemide 20 mg daily. Echocardiogram 02/2021 performed in the office revealed EF of 55%, moderate left ventricular hypertrophy, [id number] mitral regurgitation, mild tricuspid regurgitation, mild pulmonary regurgitation. Lexiscan stress test performed in the office on 03/19/2021 revealed EF 60% with no ischemia. Holter monitor February 2021 revealed predominantly sinus, average heart rate 67 with short run of PAT. Review Of Systems: At the time of my evaluation: Constitutional: No fever, no chills. No weakness, fatigue or lethargy. EENT: No headache. No dizziness. Lungs: + shortness of breath-improving, cough, no sputum production. No wheezing. Cardiovascular: No chest pain, no lower extremity edema. No palpitations. No paroxysmal nocturnal dyspnea. No orthopnea. No lightheadedness or dizziness. No syncopal episodes. Abdominal: No abdominal pain. No nausea, vomiting. No diarrhea. No consti pation. No bloody or tarry stools. Genitourinary: No dysuria.. No urinary retention. Musculoskeletal: No myalgias. No muscle weakness, no frequent falls. No back pain. No neck pain. Integumentary: No wounds. No rash. No unusual bruising. Neurologic: No aphasia. No facial droop. No change in mentation. No head injury. No headache. Physical examination: Gen: This is a 77-year-old female. She is resting bed appears very comfortable and in no acute distress. VS: reviewed HEENT: Head is atraumatic, normocephalic. Pupils equal, round. Sclerae is anicteric. NECK: Supple. No JVD. LUNGS: Diminished. No intercostal retractions. HEART: Regular rate and rhythm. No murmur. ABDOMEN: Soft No tenderness. EXTREMITIES: No pedal edema. No calf tenderness. NEUROLOGICAL: Patient is awake, alert and oriented x3. Assessment: New onset atrial fibrillation, paroxysmal Large right sided pleural effusion status post thoracentesis Recurrent right-sided pleural effusion End-stage renal disease on peritoneal dialysis and having difficulty draining from the PD catheter Status post permacath placement and started on hemodialysis Hypertension Hyperlipidemia Plan: Continue patient on Coreg 12.5 mg twice daily Continue other home cardiac medications Start patient on anticogulation and stop plavix Obtain 2-D echocardiogram and Doppler study to assess cardiac structure and function Further recommendations to follow based upon clinical course Thank you kindly for this consultation. Nurse practitioner note has been reviewed, I agree with documented findings and plan of care. Patient was seen and examined. Past Medical History Past Medical History: GERD/Reflux, Hyperlipidemia, Hypertension, Osteoarthritis (OA), Renal Disease Additional Past Medical History / Comment(s): hx of gout, states stage 4 renal disease, brain aneurysm x 2, see Dr Magi Doan&Manas, told TIA's- no residual refects, varicose veins, "bad sinus problems", hx bleeding ulcer, constipation, History of Any Multi-Drug Resistant Organisms: None Reported Past Surgical History: Heart Catheterization, Hernia Repair, Hysterectomy, Tonsillectomy Additional Past Surgical History / Comment(s): maria del rosario cataracts, cyst removed left upper leg , maria del rosario great toe-spurs removed, Past Anesthesia/Blood Transfusion Reactions: No Reported Reaction Past Psychological History: No Psychological Hx Reported Smoking Status: Former smoker - Past Family History Mother Family Medical History: No Reported History Medications and Allergies Home Medications Medication Instructions Recorded Confirmed Type Atorvastatin [Lipitor] 40 mg PO PC-SUPPER 07/27/20 06/12/23 History Venlafaxine HCl [Effexor XR] 150 mg PO DAILY 07/27/20 06/12/23 History allopurinoL [Zyloprim] 100 mg PO PC-BID 07/27/20 06/12/23 History calcitrioL [Calcitriol] 0.25 mcg PO MOWEFR 07/27/20 06/12/23 History traMADol HCL [Ultram] 50 mg PO HS 07/27/20 06/12/23 History Clopidogrel Bisulfate [Plavix] 75 mg PO PC-SUPPER 03/08/21 06/12/23 History cycloSPORINE [Restasis] 1 applicator BOTH EYES BID 03/08/21 06/12/23 History Aspirin [Adult Low Dose Aspirin EC] 81 mg PO PC-SUPPER 03/01/23 06/12/23 History Cyanocobalamin (Vitamin B-12) 1,000 mcg PO DAILY 03/01/23 06/12/23 History [Vitamin B-12] Ergocalciferol [Vitamin D2 (1250 1,250 mcg PO MO 03/01/23 06/12/23 History Mcg = 14801 Iu)] amLODIPine [Norvasc] 5 mg PO HS PRN 03/01/23 06/12/23 History carvediloL 12.5 mg PO BID 03/01/23 06/12/23 History Famotidine [Pepcid] 20 mg PO PC-BID 06/12/23 06/12/23 History Folic Acid/Vit B Complex and C 0.8 mg PO HS 06/12/23 06/12/23 History [Nephro Vitamins Tablet] Lactulose [Constulose] 20 gm PO BID PRN 06/12/23 06/12/23 History Potassium Chloride ER [K-Dur 10] 10 meq PO DAILY 06/12/23 06/12/23 History Torsemide [Demadex] 20 mg PO DAILY 06/12/23 06/12/23 History Allergies Allergy/AdvReac Type Severity Reaction Status Date / Time ciprofloxacin [From Cipro] Allergy "so weak I Verified 06/12/23 21:37 couldn't stand up" codeine Allergy Unknown Verified 06/12/23 21:37 levofloxacin [From Levaquin] Allergy "so weak I Verified 06/12/23 21:37 couldn't even stand up" Penicillins Allergy Rash/Hives Verified 06/12/23 21:37 Sulfa (Sulfonamide Allergy Unknown Verified 06/12/23 21:37 Antibiotics) Childhood diphenhydramine AdvReac "have Verified 06/12/23 21:37 opposite reaction, high energy for 3 days" Physical Exam Vitals: Vital Signs Temp Pulse Pulse Resp BP BP BP 06/15/23 08:22 60 06/15/23 08:13 60 06/15/23 07:44 87/51 06/15/23 07:40 121/63 06/15/23 07:30 98.3 F 82 18 06/15/23 04:00 98.3 F 72 18 151/67 06/15/23 00:33 06/15/23 00:00 98.0 F 70 18 151/70 06/14/23 20:00 98.1 F 68 18 150/73 06/14/23 16:00 97.8 F 94 18 130/67 06/14/23 12:00 97.7 F 97 18 BP Pulse Ox FiO2 06/15/23 08:22 06/15/23 08:13 06/15/23 07:44 06/15/23 07:40 06/15/23 07:30 108/56 96 06/15/23 04:00 94 L 06/15/23 00:33 60 06/15/23 00:00 96 06/14/23 20:00 96 06/14/23 16:00 98 06/14/23 12:00 157/86 94 L Intake and Output 06/14/23 06/15/23 06/15/23 22:59 06:59 14:59 Intake Total 708 250 Output Total 800 275 Balance -92 -275 250 Intake: IV 10 Invasive Line 1 10 Intake, IV Titration 50 Amount Desmopressin Acetate 20 50 mcg In Sodium Chloride 0. 9% 50 ml @ 200 mls/hr IVPB ONCE ONE Rx#: [id number] Oral 658 240 Output: Urine 800 275 Other: Voiding Method Indwelling Catheter Indwelling Catheter Weight 72.3 kg Results 06/14/23 06:43 06/14/23 06:43 Current Medications Generic Name Dose Route Start Last Admin Trade Name Freq PRN Reason Stop Dose Admin Albuterol/Ipratropium 3 ml 06/13/23 03:15 06/15/23 08:10 Ipratropium-Albuterol 3 Ml Neb INHALATION 3 ml RT-QID PRN Administration Shortness Of Breath Or Wheezing Allopurinol 100 mg 06/13/23 18:30 06/15/23 07:50 Allopurinol 100 Mg Tab PO 100 mg PC-BID SUZAN Administration Amlodipine Besylate 5 mg 06/13/23 09:53 Amlodipine 5 Mg Tab PO HS PRN Blood Pressure >160 Aspirin 81 mg 06/13/23 18:30 06/14/23 18:47 Aspirin 81 Mg PO 81 mg PC-SUPPER SUZAN Administration Atorvastatin Calcium 40 mg 06/13/23 18:30 06/14/23 18:47 Atorvastatin 40 Mg Tab PO 40 mg PC-SUPPER SUZAN Administration Calcitriol 0.25 mcg 06/14/23 09:00 06/14/23 16:37 Calcitriol 0.25 Mcg Cap PO 0.25 mcg MOWEFR SUZAN Administration Carvedilol 12.5 mg 06/13/23 17:30 06/15/23 06:41 Carvedilol 12.5 Mg Tab PO 12.5 mg BID-W/MEALS SUZAN Administration Clopidogrel Bisulfate 75 mg 06/13/23 18:30 06/14/23 18:47 Clopidogrel 75 Mg Tab PO 75 mg PC-SUPPER SUZAN Administration Cyanocobalamin 1,000 mcg 06/14/23 09:00 06/15/23 07:50 Cyanocobalamin 500 Mcg Tab PO 1,000 mcg DAILY SUZAN Administration Cyclosporine 1 drops 06/13/23 21:00 06/15/23 07:52 Cyclosporine 0.05% Ophth 0.4 Ml Droperette BOTH EYES 1 drops BID SUZAN Administration Ergocalciferol 1,250 mcg 06/19/23 09:00 Ergocalciferol 1,250 Mcg (50,000 Iu) Capsule PO MO SUZAN Famotidine 20 mg 06/15/23 08:30 06/15/23 07:50 Famotidine 20 Mg Tab PO 20 mg PC-BRKFST SUZAN Administration Cefepime HCl 1 gm/ Sodium 50 mls @ 12.5 mls/hr 06/13/23 11:00 06/15/23 07:51 Chloride IVPB 06/18/23 11:01 12.5 mls/hr Q24HR SUZAN Administration Lactulose 20 gm 06/13/23 09:53 Lactulose 20 Gm/30 Ml Cup PO BID PRN Constipation Miscellaneous Information 1 each 06/13/23 09:50 Pneumonia Protocol Utilized 1 Each Misc PO ONCE PRN Per Protocol Morphine Sulfate 4 mg 06/12/23 23:09 Morphine Sulfate 4 Mg/Ml Syringe IV Q4HR PRN Severe Pain (Scale 7 to 10) Multivit/Ca Carb/B Cmplx/FA/Prenat 1 each 06/13/23 21:00 06/14/23 21:09 Folic Acid-Vit B Complex-Vit C 1 Cap PO Not Given HS SUZAN Naloxone HCl 0.2 mg 06/12/23 23:09 Naloxone 0.4 Mg/Ml 1 Ml Vial IV Q2M PRN Opioid Reversal Ondansetron HCl 4 mg 06/12/23 23:09 Ondansetron 4 Mg/2 Ml Vial IVP Q8HR PRN Nausea And Vomiting Torsemide 20 mg 06/13/23 09:00 06/15/23 07:51 Torsemide 20 Mg Tab PO 20 mg DAILY SUZAN Administration Tramadol HCl 50 mg 06/13/23 21:00 06/14/23 21:15 Tramadol 50 Mg Tab PO 50 mg HS SUZAN Administration Venlafaxine HCl 150 mg 06/14/23 09:00 06/15/23 07:51 Venlafaxine Hcl Er 150 Mg Cap PO 150 mg DAILY SUZAN Administration Intake and Output 06/14/23 06/15/23 06/15/23 22:59 06:59 14:59 Intake Total 708 250 Output Total 800 275 Balance -92 -275 250 Intake: IV 10 Invasive Line 1 10 Intake, IV Titration 50 Amount Desmopressin Acetate 20 50 mcg In Sodium Chloride 0. 9% 50 ml @ 200 mls/hr IVPB ONCE ONE Rx#: [id number] Oral 658 240 Output: Urine 800 275 Other: Voiding Method Indwelling Catheter Indwelling Catheter Weight 72.3 kg 06/14/23 06:43 06/14/23 06:43
--- NOTE | 2023-06-15 13:12 | P.PN ---
Subjective Progress Note Date: 06/15/23 patient 77-year-old lady with past medical history significant for end-stage renal disease on dialysis who presented to the ER because of shortness of breath. Patient does peritoneal dialysis at home and states that for the last 2 days she was getting more short of breath. Shortness of breath was present on rest as well as exertion. Patient stated that normally they use 2 L of fluid for peritoneal dialysis but she was only getting 1 L of fluid in return. Denied any chest pain. Because of worsening shortness of breath, EMS was called and patient was found to be saturating in 60s on room air, patient was placed on BiPAP and was brought to the ER. In the ER, patient underwent imaging and labs Initial lab work done in the ER showed he received 15.6, hemoglobin 11.5, platel et count 255, sodium 133, potassium 3.8, chloride 96, BUN 39, creatinine 3.58 phosphorous 5.8, troponin 0.014 Chest x-ray done in the ER showed interval development of a large suspected right pleural effusion with associated atelectasis Patient underwent thoracentesis in the ER and was admitted to medicine service 06/14. Patient seen and examined. Patient had dialysis catheter placed, will be undergoing hemodialysis session today 06/15. Patient seen and examined. Was lightheaded this morning, orthostatic blood positive. Patient undergoing her second session of dialysis REVIEW OF SYSTEMS: CONSTITUTIONAL: No fever, no malaise,. CARDIOVASCULAR: No chest pain, no palpitations, no syncope. PULMONARY: No shortness of breath, no cough, GASTROINTESTINAL: No diarrhea, no nausea, no vomiting, no abdominal pain. NEUROLOGICAL: No headaches, no weakness, PHYSICAL EXAMINATION: GENERAL: The patient is alert and oriented x3, not in any acute distress. Well developed, well nourished. HEENT: Pupils are round and equally reacting to light. EOMI. No scleral icterus. No conjunctival pallor. Normocephalic, atraumatic. No pharyngeal erythema. No thyromegaly. CARDIOVASCULAR: S1 and S2 present. No murmurs, rubs, or gallops. PULMONARY: Diminished breath sounds at the bases bilaterally. ABDOMEN: Soft, nontender, nondistended, normoactive bowel sounds. No palpable organomegaly. MUSCULOSKELETAL: No joint swelling or deformity. EXTREMITIES: No cyanosis, clubbing, or pedal edema. NEUROLOGICAL: Gross neurological examination did not reveal any focal deficits. SKIN: No rashes. Assessment and plan Bacterial pneumonia Acute hypoxemic respiratory failure Right pleural effusion status post thoracentesis End-stage renal disease on peritoneal dialysis Lactic acidemia Benign essential hypertension Hyperlipidemia History of TIA History of gout Monitor vital signs Monitor CBC Monitor CMP Continue telemetry monitoring Follow-up on blood cultures Follow-up on Sputum cultures Continue IV cefepime Continue breathing treatments Vascular surgery consulted for temporary dialysis catheter placement Follow-up on pulmonary recommendations, repeat chest x-ray ordered for today, pulmonology will decide about doing thoracentesis Follow-up in ID recommendations follow-up on nephrology recommendations Labs and medication were reviewed.. Continue same treatment. Continue with symptomatic treatment. Resume home medication. Monitor labs and vitals. DVT and GI prophylaxis. Further recommendations as per clinical course of the patient Dictation was produced using [employer] dictation software. please excuse any grammatical, word or spelling errors. Objective - Vital Signs Vital signs: Vital Signs Temp 97.8 F 06/15/23 12:00 Pulse 62 06/15/23 12:00 Resp 18 06/15/23 12:00 BP 138/88 06/15/23 12:00 Pulse Ox 93 L 06/15/23 12:00 FiO2 60 06/15/23 00:33 Intake & Output 06/14/23 06/15/23 06/15/23 18:59 06:59 18:59 Intake Total 818 300 Output Total 800 275 Balance 18 -275 300 Weight 72.3 kg Intake: IV 110 10 Invasive Line 1 10 10 Intake, IV Titration 50 50 Amount Cefepime 1 gm In Sodium 50 Chloride 0.9% 50 ml @ 12. 5 mls/hr IVPB Q24HR [facility] Rx#:[id number] Desmopressin Acetate 20 50 mcg In Sodium Chloride 0. 9% 50 ml @ 200 mls/hr IVPB ONCE ONE Rx#: [id number] Oral 658 240 Output: Urine 800 275 Other: Voiding Method Indwelling Catheter Indwelling Catheter Indwelling Catheter - Labs CBC & Chem 7: 06/14/23 06:43 06/14/23 06:43 Labs: Abnormal Lab Results - Last 24 Hours (Table) 06/14/23 Range/Units 06:43 Procalcitonin 0.74 H (0.02-0.09) ng/mL Microbiology - Last 24 Hours (Table) 06/12/23 23:30 Gram Stain - Preliminary Pleural Fluid Body Fluid Culture - Preliminary 06/13/23 11:06 Blood Culture - Preliminary Blood 06/13/23 10:14 Blood Culture - Preliminary Blood
--- NOTE | 2023-06-15 15:00 | XR ---
EXAMINATION TYPE: XR chest 1V portable DATE OF EXAM: 06/15/2023 2:47 PM COMPARISON: Chest radiographs from 06/14/2023 TECHNIQUE: XR chest 1V portable Portable AP radiograph of the chest. CLINICAL INDICATION:Female, 77 years old with history of effusion; FINDINGS: Lungs/Pleura: Stable small left pleural effusion with decrease small right pleural effusion. No pneum othorax. Pulmonary vascularity: Unremarkable. Heart/mediastinum: Cardiomediastinal silhouette is enlarged and stable. Atherosclerotic calcificatio ns are seen in the aorta. Musculoskeletal: No acute osseous pathology. Remote healed surgical neck fracture of the right proxim al humerus. Calcified loose bodies within the left shoulder joint. Other findings: None Lines/Tubes: Stable dual-lumen right IJ dialysis catheter distal tip at the mid SVC. IMPRESSION: Stable small left pleural effusion with decreased small right pleural effusion.
[2023-06-15] MEDS: ASPIRIN 81 MG PO SCH (18:23)
[2023-06-15] MEDS: ATORVASTATIN 40 MG TAB PO SCH (18:23)
--- NOTE | 2023-06-15 19:59 | P.PN ---
Subjective Progress Note Date: 06/14/23 Principal diagnosis: Left sided effusion and pneumonia Patient is a 77-year-old female with past medical history significant for end-stage renal disease on peritoneal dialysis since March 2023, also history of hypertension hyperlipidemia TIA presenting to the ER for evaluation of shortness of breath, patient did have large left-sided effusion status post thoracocentesis, patient has been switched over to hemodialysis. On today's evaluation that is 06/14/2023, patient denies having any fever or any chills patient is breathing comfortably on a 6 L nasal cannula oxygen patient denies having any chest pain occasional cough no abdominal pain no diarrhea Objective - Vital Signs Vital signs: Vital Signs Temp 97.7 F 06/14/23 12:00 Pulse 97 06/14/23 12:00 Resp 18 06/14/23 12:00 BP 157/86 06/14/23 12:00 Pulse Ox 94 L 06/14/23 12:00 FiO2 60 06/14/23 01:10 Intake & Output 06/13/23 06/14/23 06/14/23 18:59 06:59 18:59 Intake Total 10 110 Output Total 75 705 Balance -75 -695 110 Weight 71.214 kg 67 kg Intake: IV 10 110 Invasive Line 1 10 10 Output: Urine 75 705 Other: Voiding Method Indwelling Catheter Indwelling Catheter Indwelling Catheter # Voids 0 - Exam GENERAL DESCRIPTION: Elderly female lying in bed in no distress RESPIRATORY SYSTEM: Unlabored breathing , decreased breath sounds at bases HEART: S1 S2 regular rate and rhythm ,no loud murmurs ABDOMEN: Soft , no tenderness EXTREMITIES: No edema feet - Labs CBC & Chem 7: 06/14/23 06:43 06/14/23 06:43 Labs: Abnormal Lab Results - Last 24 Hours (Table) 06/14/23 06/14/23 06/14/23 Range/Units 05:49 06:43 06:43 WBC 15.4 H (3.8-10.6) k/uL RBC 3.49 L (3.80-5.40) m/uL Hgb 9.8 L (11.4-16.0) gm/dL Hct 30.7 L (34.0-46.0) % RDW 18.1 H (11.5-15.5) % Neutrophils # 13.2 H (1.3-7.7) k/uL Sodium 134 L (137-145) mmol/L Potassium 3.4 L (3.5-5.1) mmol/L Chloride 96 L (98-107) mmol/L BUN 62 H (7-17) mg/dL Creatinine 5.25 H (0.52-1.04) mg/dL Glucose 121 H (74-99) mg/dL POC Glucose (mg/dL) 128 H (70-110) mg/dL Total Protein 5.7 L (6.3-8.2) g/dL Albumin 3.3 L (3.5-5.0) g/dL 06/14/23 Range/Units 11:40 WBC (3.8-10.6) k/uL RBC (3.80-5.40) m/uL Hgb (11.4-16.0) gm/dL Hct (34.0-46.0) % RDW (11.5-15.5) % Neutrophils # (1.3-7.7) k/uL Sodium (137-145) mmol/L Potassium (3.5-5.1) mmol/L Chloride (98-107) mmol/L BUN (7-17) mg/dL Creatinine (0.52-1.04) mg/dL Glucose (74-99) mg/dL POC Glucose (mg/dL) 117 H (70-110) mg/dL Total Protein (6.3-8.2) g/dL Albumin (3.5-5.0) g/dL Microbiology - Last 24 Hours (Table) 06/12/23 23:30 Gram Stain - Preliminary Pleural Fluid Body Fluid Culture - Preliminary Assessment and Plan (1) Pneumonia Current Visit: Yes Status: Acute Code(s): J18.9 - PNEUMONIA, UNSPECIFIED ORGANISM SNOMED Code(s): 357670931 (2) Leukocytosis Current Visit: Yes Status: Acute Code(s): D72.829 - ELEVATED WHITE BLOOD CELL COUNT, UNSPECIFIED SNOMED Code(s): 669916195 (3) Pleural effusion, right Current Visit: Yes Status: Acute Code(s): J90 - PLEURAL EFFUSION, NOT ELSEWHERE CLASSIFIED SNOMED Code(s): 44146547 Plan: 1patient presented to the hospital with increasing shortness of breath which is likely multifactorial and more likely related to fluid overload in this patient who do have a history of end-stage renal disease on peritoneal dialysis but not getting enough fluid out at the end of the session noticed to have significant effusion status post thoracocentesis however no cell count was done there is possible compressive atelectasis rather than pneumonia and elevated white count more likely reactive. 2procalcitonin is 0.74 , pleural fluid cultures are currently pending 3-patient with multiple antibiotic allergies that would limit the number of antibiotics safe to use 4 -Pt to continue cefepime while waiting for the culture to finalize Dictation was produced using [employer] software. please excuse any grammatical, word or spelling errors.
--- NOTE | 2023-06-15 20:01 | P.PN ---
Subjective Progress Note Date: 06/15/23 Principal diagnosis: Left sided effusion and pneumonia Patient is a 77-year-old female with past medical history significant for end-stage renal disease on peritoneal dialysis since March 2023, also history of hypertension hyperlipidemia TIA presenting to the ER for evaluation of shortness of breath, patient did have large left-sided effusion status post thoracocentesis, patient has been switched over to hemodialysis. On today's evaluation that is 06/15/2023 the patient remains to be afebrile, the patient is currently breathing comfortably on 3 L nasal cannula oxygen patient did receive dialysis yesterday as well as undergoing dialysis today, patient denies any chest pain occasional cough no nausea no vomiting no abdominal pain or diarrhea Objective - Vital Signs Vital signs: Vital Signs Temp 98.3 F 06/15/23 15:46 Pulse 64 06/15/23 15:46 Resp 18 06/15/23 15:46 BP 174/72 06/15/23 15:46 Pulse Ox 94 L 06/15/23 15:46 FiO2 60 06/15/23 00:33 Intake & Output 06/15/23 06/15/23 06/16/23 06:59 18:59 06:59 Intake Total 600 Output Total 275 1450 Balance -275 -850 Weight 72.3 kg Intake: IV 10 Invasive Line 1 10 Intake, IV Titration 50 Amount Cefepime 1 gm In Sodium 50 Chloride 0.9% 50 ml @ 12. 5 mls/hr IVPB Q24HR [facility] Rx#:[id number] Oral 240 Hemodialysis 300 Output: Urine 275 450 Uretheral (Dupree) 300 Hemodialysis 1000 Other: Voiding Method Indwelling Catheter Indwelling Catheter - Exam GENERAL DESCRIPTION: Elderly female lying in bed in no distress RESPIRATORY SYSTEM: Unlabored breathing , decreased breath sounds at bases HEART: S1 S2 regular rate and rhythm ,no loud murmurs ABDOMEN: Soft , no tenderness EXTREMITIES: No edema feet - Labs CBC & Chem 7: 06/14/23 06:43 06/14/23 06:43 Labs: Microbiology - Last 24 Hours (Table) 06/13/23 11:06 Blood Culture - Preliminary Blood 06/13/23 10:14 Blood Culture - Preliminary Blood 06/12/23 23:30 Anaerobic Culture - Preliminary Pleural Fluid 06/12/23 23:30 Gram Stain - Preliminary Pleural Fluid Body Fluid Culture - Preliminary Assessment and Plan (1) Leukocytosis Current Visit: Yes Status: Acute Code(s): D72.829 - ELEVATED WHITE BLOOD CELL COUNT, UNSPECIFIED SNOMED Code(s): 325815824 (2) Pleural effusion, right Current Visit: Yes Status: Acute Code(s): J90 - PLEURAL EFFUSION, NOT ELSEWHERE CLASSIFIED SNOMED Code(s): 91704657 (3) Pneumonia Current Visit: Yes Status: Acute Code(s): J18.9 - PNEUMONIA, UNSPECIFIED ORGANISM SNOMED Code(s): 863804638 Plan: 1patient presented to the hospital with increasing shortness of breath which is likely multifactorial and more likely related to fluid overload in this patient who do have a history of end-stage renal disease on peritoneal dialysis but not getting enough fluid out at the end of the session noticed to have significant effusion status post thoracocentesis however no cell count was done there is possible compressive atelectasis rather than pneumonia and elevated white count more likely reactive. 2procalcitonin is 0.74 , pleural fluid cultures are currently pending 3-Patient seem to have some clinical improvement we will continue the patient on cefepime while waiting for the culture to finalize and monitor clinical course closely Dictation was produced using [employer] dictation software. please excuse any grammatical, word or spelling errors. Time with Patient: Less than 30
[2023-06-15] MEDS: FOLIC ACID-VIT B COMPLEX-VIT C 1 CAP PO SCH (21:45)
[2023-06-15] MEDS: traMADol 50 MG TAB PO SCH (21:50)
[2023-06-15] MEDS: APIXABAN 2.5 MG TABLET PO SCH (21:51)
[2023-06-16] MEDS: carvediloL 12.5 MG TAB PO SCH ×2 (06:49→17:10)
[2023-06-16] MEDS: CYANOCOBALAMIN 500 MCG TAB PO SCH (07:54)
[2023-06-16] MEDS: allopurinoL 100 MG TAB PO SCH ×2 (07:54→17:10)
[2023-06-16] MEDS: FAMOTIDINE 20 MG TAB PO SCH (07:54)
[2023-06-16] MEDS: VENLAFAXINE HCL ER 150 MG CAP PO SCH (07:54)
[2023-06-16] MEDS: CEFEPIME 1 GM in SODIUM CHLORIDE 0.9% 50 ML IVPB SCH (07:54)
[2023-06-16] MEDS: TORSEMIDE 20 MG TAB PO SCH (07:54)
[2023-06-16] MEDS: APIXABAN 2.5 MG TABLET PO SCH ×2 (07:54→20:23)
[2023-06-16] MEDS: cycloSPORINE 0.05% OPHTH 0.4 ML DROPERETTE BOTH EYES SCH ×2 (07:55→20:24)
[2023-06-16 10:37] LABS: African American GFR (CKD) 22 (>60 ml/min/1.73 sqM); Anion Gap 6 mmol/L; Blood Urea Nitrogen 21 mg/dL (7-17); Calcium 8.6 mg/dL (8.4-10.2); Carbon Dioxide 27 mmol/L (22-30); Chloride 96 mmol/L (98-107); Glucose 95 mg/dL (74-99); Non-African American GFR(CKD) 19 (>60 ml/min/1.73 sqM); Potassium 3.4 mmol/L (3.5-5.1); Sodium 129 mmol/L (137-145)
--- NOTE | 2023-06-16 11:33 | P.PN ---
Subjective Progress Note Date: 06/16/23 Principal diagnosis: right-sided pleural effusion I am seeing this patient in consultation today 06/13/2023 in the emergency room for a large right-sided pleural effusion. Patient is a 77-year-old female with end-stage renal disease peritoneal dialysis, hypertension, hyperlipidemia, TIA. The patient presented to the emergency room via EMS last night with complaints of acute respiratory distress that started yesterday. Apparently, the patient receives peritoneal dialysis on a regular basis at home. The has been instilling approximately 2 L of peritoneal dialysate with each round. He has only been draining approximately 1 L back each time. Patient's states that they tried multiple maneuvers to drain the fluid. Denies any fevers, chills, myalgias, abdominal pain, or bloody or purulent drainage from the PD cath. On arrival to the emergency room, the patient was found to have a large right pleural effusion causing mediastinal shift to the left. The patient underwent a large-volume thoracentesis by ER physician with a total of 3.2 L of fluid removed. The fluid appears clear, and will be sent for cytology. The patient denies any history of lung cancer or prior pleural effusions. Repeat chest x-ray following the thoracentesis shows marked improvement of the right sided pleural effusion, and there were small bilateral pleural effusions. No longer any tracheal or mediastinal shift. No evidence of pneumothoraces. Patient reports improvement in her work of breathing. She is currently on the BiPAP with settings of 12/6 and FiO2 60%. This will likely be able to be weaned off later this morning. CBC on arrival shows a WBC count of 15.6, hemoglobin 11.5, hematocrit 36.5, platelets 255. BMP shows sodium 133, potassium 3.8, chloride 96, serum bicarbonate 23, BUN 39, creatinine 3.58, glucose 282. Lactic acid level was elevated at 4.4 and is down to 3.8. Troponin 0.014. NT proBNP elevated at 3090. Nephrology was consulted for management of peritoneal dialysis and the PD catheter. As stated above, the patient appears much more c omfortable, and will be monitored on the cardiac stepdown unit. Patient was reevaluated today on 06/14/2023, patient is developing pleural effusion on the right side again. Apparently peritoneal dialysis was attempted again yesterday, and the patient could not have peritoneal dialysis, unsuccessful, she developed and she also developed worsening shortness of breath. Hence the patient had a temporary hemodialysis catheter placed by vascular surgery, and she will have hemodialysis today. In the meantime I reviewed the chest x-ray, reviewed the ultrasound of the chest, effusion is still relatively small, but may or may not require thoracentesis depending on how the patient responds to hemodialysis/ultrafiltration which is scheduled to be done today. Patient is on 6 L nasal cannula with O2 sat of 95%.labs from today were all reviewed BUN is 62 creatinine 5.5. CBC is relatively unremarka ble. Patient was reevaluated today on 06/15/2023, underwent hemodialysis yesterday, she is now on 4 L nasal cannula does not seem to be in any distress, I am considering a right-sided thoracentesis on this patient because of her pleural effusion, however before making a final decision on thoracentesis would like to check chest x-ray today and decide whether a thoracentesis is necessary. WBC count is 15.4 hemoglobin 9.8 electrolytes are normal BUN is 62 creatinine 5.5. Patient is complaining of generalized weakness. Her blood pressure is 138/88, Reevaluated today on 06/16/23, patient is doing great, her chest x-ray showed very minimal tiny right-sided pleural effusion, not large enough to consider thoracentesis. Patient is now on 2 L nasal cannula and her O2 saturation is 97%, I believe the patient could be considered for discharge planning if cleared by other consultants including nephrology. Again no need for thoracentesis, her pleural effusion is responding to hemodialysis. Labs and medications were reviewed. Would recommend stopping antibiotics, did not feel that the patient had pneumonia, and her pleural effusion is mostly related to fluid overload, and possibly related to her ascites and fluid in her abdomen from peritoneal catheter. Objective - Vital Signs Vital signs: Vital Signs Temp 97.9 F 06/16/23 07:49 Pulse 63 06/16/23 07:49 Resp 18 06/16/23 07:49 BP 134/63 06/16/23 07:49 Pulse Ox 97 06/16/23 07:49 FiO2 60 06/15/23 00:33 Intake & Output 06/15/23 06/16/23 06/16/23 18:59 06:59 18:59 Intake Total 600 250 Output Total 1450 400 200 Balance -850 -400 50 Weight 71.4 kg Intake: IV 10 10 Invasive Line 1 10 10 Intake, IV Titration 50 Amount Cefepime 1 gm In Sodium 50 Chloride 0.9% 50 ml @ 12. 5 mls/hr IVPB Q24HR [facility] Rx#:[id number] Oral 240 240 Hemodialysis 300 Output: Urine 450 400 200 Uretheral (Dupree) 300 Hemodialysis 1000 Other: Voiding Method Indwelling Catheter Toilet Toilet - Exam Physical Exam: Revealed 77-year-old female in no distress on 2 L nasal cannula Head: Atraumatic, normocephalic. HEENT:[Neck is supple.] [No neck masses.] [No thyromegaly.] [No JVD.]right subclavian hemodialysis catheter is noted. Chest: [diminished breath sounds and dullness at the right base. Cardiac Exam: [Normal S1 and S2, no S3 gallop, no murmur.] Abdomen: [Soft, nontender, no megaly, no rebound, no guarding, normal bowel sounds.] Extremities: [No clubbing, trace of bipedal edema is noted. Neurological Exam: [No focal neurologic deficit.] psychiatric: Normal mood affect and normal mental status examination. - Labs CBC & Chem 7: 06/14/23 06:43 06/16/23 09:47 Labs: Abnormal Lab Results - Last 24 Hours (Table) 06/16/23 Range/Units 09:47 Sodium 129 L (137-145) mmol/L Potassium 3.4 L (3.5-5.1) mmol/L Chloride 96 L (98-107) mmol/L BUN 21 H (7-17) mg/dL Creatinine 2.44 H (0.52-1.04) mg/dL Microbiology - Last 24 Hours (Table) 06/12/23 23:30 Gram Stain - Preliminary Pleural Fluid Body Fluid Culture - Preliminary 06/13/23 11:06 Blood Culture - Preliminary Blood 06/13/23 10:14 Blood Culture - Preliminary Blood 06/12/23 23:30 Anaerobic Culture - Preliminary Pleural Fluid Assessment and Plan Assessment: impression:Large right-sided pleural effusion status post large volume thoracentesis with a total of 3.2 L of fluid removed. this was done by the ER physician. Recurrent right-sided pleural effusion , resolved with hemodialysis Acute hypoxemic respiratory failure secondary to above, resolving. End-stage renal disease with peritoneal dialysis, patient has had troubles draining her PD cath Lactic acidemia, resolved. Benign essential hypertension Hyperlipidemia History of TIA History of gout Remote ex-smoker Clinically the patient did not have pneumonia, hence I would recommend stopping her antibiotics and consider discharging the patient home. Recommendation: We'll clear the patient for discharge if cleared by other consultants Continue present supportive care measures After reviewing the chest x-ray, no need for thoracentesis. Continue hemodialysis. We will continue to follow. Time with Patient: Less than 30
--- NOTE | 2023-06-16 11:56 | P.PN ---
Subjective Progress Note Date: 06/16/23 patient 77-year-old lady with past medical history significant for end-stage renal disease on dialysis who presented to the ER because of shortness of breath. Patient does peritoneal dialysis at home and states that for the last 2 days she was getting more short of breath. Shortness of breath was present on rest as well as exertion. Patient stated that normally they use 2 L of fluid for peritoneal dialysis but she was only getting 1 L of fluid in return. Denied any chest pain. Because of worsening shortness of breath, EMS was called and patient was found to be saturating in 60s on room air, patient was placed on BiPAP and was brought to the ER. In the ER, patient underwent imaging and labs Initial lab work done in the ER showed he received 15.6, hemoglobin 11.5, platel et count 255, sodium 133, potassium 3.8, chloride 96, BUN 39, creatinine 3.58 phosphorous 5.8, troponin 0.014 Chest x-ray done in the ER showed interval development of a large suspected right pleural effusion with associated atelectasis Patient underwent thoracentesis in the ER and was admitted to medicine service 06/14. Patient seen and examined. Patient had dialysis catheter placed, will be undergoing hemodialysis session today 06/15. Patient seen and examined. Was lightheaded this morning, orthostatic blood positive. Patient undergoing her second session of dialysis 06/16. Patient seen and examined. States she feels better. Complaining of left flank pain REVIEW OF SYSTEMS: CONSTITUTIONAL: No fever, no malaise,. CARDIOVASCULAR: No chest pain, no palpitations, no syncope. PULMONARY: No shortness of breath, no cough, GASTROINTESTINAL: No diarrhea, no nausea, no vomiting, no abdominal pain. NEUROLOGICAL: No headaches, no weakness, PHYSICAL EXAMINATION: GENERAL: The patient is alert and oriented x3, not in any acute distress. Well developed, well nourished. HEENT: Pupils are round and equally reacting to light. EOMI. No scleral icterus. No conjunctival pallor. Normocephalic, atraumatic. No pharyngeal erythema. No thyromegaly. CARDIOVASCULAR: S1 and S2 present. No murmurs, rubs, or gallops. PULMONARY: Diminished breath sounds at the bases bilaterally. ABDOMEN: Soft, nontender, nondistended, normoactive bowel sounds. No palpable organomegaly. MUSCULOSKELETAL: No joint swelling or deformity. EXTREMITIES: No cyanosis, clubbing, or pedal edema. NEUROLOGICAL: Gross neurological examination did not reveal any focal deficits. SKIN: No rashes. Assessment and plan Bacterial pneumonia Acute hypoxemic respiratory failure Right pleural effusion status post thoracentesis End-stage renal disease on peritoneal dialysis Lactic acidemia Benign essential hypertension Hyperlipidemia History of TIA History of gout Monitor vital signs Monitor CBC Monitor CMP Continue telemetry monitoring Follow-up on blood cultures Follow-up on Sputum cultures Continue IV cefepime Continue breathing treatments Continue hemodialysis Follow-up on pulmonary recommendations, repeat chest x-ray done, showed tiny pleural effusion, no need for thoracentesis at this time Follow-up in ID recommendations follow-up on nephrology recommendations Labs and medication were reviewed.. Continue same treatment. Continue with symptomatic treatment. Resume home medication. Monitor labs and vitals. DVT and GI prophylaxis. Further recommendations as per clinical course of the gilberto ent Dictation was produced using [employer] dictation software. please excuse any grammatical, word or spelling errors. Objective - Vital Signs Vital signs: Vital Signs Temp 97.9 F 06/16/23 07:49 Pulse 63 06/16/23 07:49 Resp 18 06/16/23 07:49 BP 134/63 06/16/23 07:49 Pulse Ox 97 06/16/23 07:49 FiO2 60 06/15/23 00:33 Intake & Output 06/15/23 06/16/23 06/16/23 18:59 06:59 18:59 Intake Total 600 250 Output Total 1450 400 200 Balance -850 -400 50 Weight 71.4 kg Intake: IV 10 10 Invasive Line 1 10 10 Intake, IV Titration 50 Amount Cefepime 1 gm In Sodium 50 Chloride 0.9% 50 ml @ 12. 5 mls/hr IVPB Q24HR [facility] Rx#:[id number] Oral 240 240 Hemodialysis 300 Output: Urine 450 400 200 Uretheral (Dupree) 300 Hemodialysis 1000 Other: Voiding Method Indwelling Catheter Toilet Toilet - Labs CBC & Chem 7: 06/14/23 06:43 06/16/23 09:47 Labs: Microbiology - Last 24 Hours (Table) 06/12/23 23:30 Gram Stain - Preliminary Pleural Fluid Body Fluid Culture - Preliminary 06/13/23 11:06 Blood Culture - Preliminary Blood 06/13/23 10:14 Blood Culture - Preliminary Blood 06/12/23 23:30 Anaerobic Culture - Preliminary Pleural Fluid
--- NOTE | 2023-06-16 14:50 | CA ---
Transthoracic Echo Report Name: Samanta Michel Age: 77 Gender: F : 1945 Exam Date: 06/16/2023 09:23 Exam Location: [place] [facility] Ht (in): 62 Wt (lb): 159 Ordering Physician: Jessie Felder Attending/Referring Phys: [id number], Emerita Denitrator Operator [facility] Procedure CPT: Indications: LVF Cardiac Hx: Technical Quality: Fair Contrast 1: Total Dose (mL): Contrast 2: Total Dose (mL): MEASUREMENTS (Male / Female) Normal Values 2D ECHO LV Diastolic Diameter PLAX 4.9 cm 4.2 - 5.9 / 3.9 - 5.3 cm LV Systolic Diameter PLAX 3.8 cm IVS Diastolic Thickness 1.2 cm 0.6 - 1.0 / 0.6 - 0.9 cm LVPW Diastolic Thickness 1.1 cm 0.6 - 1.0 / 0.6 - 0.9 cm LV Relative Wall Thickness 0.5 LVOT Diameter 2.0 cm Ascending Aorta Diameter 3.2 cm M-MODE Aortic Root Diameter MM 2.9 cm LA Systolic Diameter MM 4.1 cm LA Ao Ratio MM 1.4 AV Cusp Separation MM 2.1 cm DOPPLER AV Peak Velocity 110.3 cm/s AV Peak Gradient 4.9 mmHg AV Mean Velocity 79.3 cm/s AV Mean Gradient 2.8 mmHg AV Velocity Time Integral 25.3 cm LVOT Peak Velocity 91.7 cm/s LVOT Peak Gradient 3.4 mmHg LVOT Velocity Time Integral 21.2 cm LVOT Stroke Volume 65.1 cm??? LVOT Stroke Volume Index 37.5 ml/m??? LVOT Cardiac Index 1989.1 cm???/min???m??? AV Area Cont Eq vti 2.6 cm??? AV Area Cont Eq pk 2.6 cm??? MV Peak Velocity 104.0 cm/s MV Peak Gradient 4.3 mmHg MV Mean Velocity 68.5 cm/s MV Mean Gradient 2.0 mmHg MV Velocity Time Integral 29.4 cm MR Peak Velocity 593.7 cm/s MR Peak Gradient 141.0 mmHg Mitral E Point Velocity 59.4 cm/s Mitral A Point Velocity 77.5 cm/s Mitral E to A Ratio 0.8 MV Deceleration Time 168.0 ms LV E' Lateral Velocity 5.4 cm/s Mitral E to LV E' Lateral Ratio 11.1 LV E' Septal Velocity 4.3 cm/s Mitral E to LV E' Septal Ratio 13.8 TR Peak Velocity 259.8 cm/s TR Peak Gradient 27.0 mmHg Right Atrial Pressure 3.0 mmHg Pulmonary Artery Systolic Pressu 30.0 mmHg Right Ventricular Systolic Press 30.0 mmHg FINDINGS Left Ventricle Moderate concentric LVH. Left ventricular cavity size normal. No obvious regional wall motion abnormalities. Left ventricular ejection fraction is estimated at 55-60%. Grade 1 diastolic dysfunction Right Ventricle Right ventricle not well visualized. Right Atrium Right atrium not well visualized. Left Atrium Moderate left atrial dilatation. Mitral Valve Structurally normal mitral valve. Mitral valve thickened. Moderate mitral regurgitation. Aortic Valve Trileaflet aortic valve. No aortic regurgitation. No aortic Stenosis Tricuspid Valve Structurally normal tricuspid valve. Mild tricuspid regurgitation. Pulmonic Valve Structurally normal pulmonic valve. [id number] pulmonic regurgitation. Pericardium No pericardial effusion. Echo free space anterior to the right ventricle likely represents a fat pad. Aorta Normal size aortic root and proximal ascending aorta. CONCLUSIONS Normal LV size and global LV systolic function. LVEF estimated at 55% Moderate concentric LVH Moderate mitral regurgitation Moderate left ventricular dilatation Precardial fat noticed No prior echo in [employer] database to compare Previewed by: Dr Matti Ruelas (Electronically Signed) Final Date: 16 June 2023 14:50
--- NOTE | 2023-06-16 15:13 | P.PN ---
Subjective Progress Note Date: 06/16/23 History of present illness: This is a 77-year-old female patient of Dr. brook zazueta with past medical history of hypertension, hyperlipidemia, end-stage renal disease with CAPD. We have been asked to evaluate the patient for atrial fibrillation. Patient presented to the hospital on 06/12 with respiratory distress found to have a large right- sided pleural effusion. Patient has had difficulty with peritoneal dialysis with fluid overload. Patient underwent a thoracentesis in the emergency center removal of 3.2 L. Peritoneal dialysis was attempted but unsuccessful patient developed worsening shortness of breath. Yesterday patient had an IJ permacath placement for hemodialysis which was placed on 06/13. Patient started hemodialysis yesterday. Telemetry currently showing sinus rhythm. She states her breathing is much improved but not back to her normal. She denies feeling palpitations or other symptoms at the time of onset of Afib. She has converted to sinus this morning. Patient is undergoing HD this morning. EKG obtained on 06/14 at 1125 revealed atrial fibrillation with ventricular rate of 115 Chest x-ray: Performed on 06/14 revealed placement of right-sided double-lumen hemodialysis catheter ongoing moderate right and small left pleural effusions with adjacent atelectasis and/or consolidation Home cardiac medications:Aspirin 81 mg daily, Lipitor 40 mg daily, Coreg 12.5 mg twice daily, Plavix 75 mg daily, potassium chloride 10 mEq daily, torsemide 20 mg daily. Echocardiogram 02/2021 performed in the office revealed EF of 55%, moderate left ventricular hypertrophy, [id number] mitral regurgitation, mild tricuspid regurgitation, mild pulmonary regurgitation. Lexiscan stress test performed in the office on 03/19/2021 revealed EF 60% with no ischemia. Holter monitor February 2021 revealed predominantly sinus, average heart rate 67 with short run of PAT. 06/16 Patient is seen today in follow-up. Patient is in a sinus rhythm. Echocardiogram reveals EF 55% with moderate left ventricular hypertrophy, moderate MR, moderate left ventricular dilation. Blood pressures have been elevated 179/69, heart rate running in the 50s to 80, pulse ox 90% on 2 L. Patient states her breathing is little bit better today. She has had good urine output. She denies having any chest pain or pressure. Patient underwent HD today. Physical examination: Gen: This is a 77-year-old female. She is resting bed appears very comfortable and in no acute distress. VS: reviewed HEENT: Head is atraumatic, normocephalic. Pupils equal, round. Sclerae is anicteric. NECK: Supple. No JVD. LUNGS: Diminished. No intercostal retractions. HEART: Regular rate and rhythm. No murmur. ABDOMEN: Soft No tenderness. EXTREMITIES: No pedal edema. No calf tenderness. NEUROLOGICAL: Patient is awake, alert and oriented x3. Assessment: New onset atrial fibrillation, paroxysmal Large right sided pleural effusion status post thoracentesis Recurrent right-sided pleural effusion End-stage renal disease on peritoneal dialysis and having difficulty draining from the PD catheter Status post permacath placement and started on hemodialysis Hypertension Hyperlipidemia Plan: Continue patient on Coreg 12.5 mg twice daily Continue other home cardiac medications Continue eliquis and hold Plavix at discharge Further recommendations to follow based upon clinical course Nurse practitioner note has been reviewed, I agree with documented findings and plan of care. Patient was seen and examined. Objective - Vital Signs Vital signs: Vital Signs Temp 97.8 F 06/16/23 11:39 Pulse 80 06/16/23 11:39 Resp 18 06/16/23 11:39 BP 162/75 06/16/23 11:39 Pulse Ox 93 L 06/16/23 11:39 FiO2 60 06/15/23 00:33 Intake & Output 06/15/23 06/16/23 06/16/23 18:59 06:59 18:59 Intake Total 600 250 Output Total 1450 400 200 Balance -850 -400 50 Weight 71.4 kg Intake: IV 10 10 Invasive Line 1 10 10 Intake, IV Titration 50 Amount Cefepime 1 gm In Sodium 50 Chloride 0.9% 50 ml @ 12. 5 mls/hr IVPB Q24HR [facility] Rx#:[id number] Oral 240 240 Hemodialysis 300 Output: Urine 450 400 200 Uretheral (Dupree) 300 Hemodialysis 1000 Other: Voiding Method Indwelling Catheter Toilet Toilet - Labs CBC & Chem 7: 06/14/23 06:43 06/16/23 09:47 Labs: Abnormal Lab Results - Last 24 Hours (Table) 06/16/23 Range/Units 09:47 Sodium 129 L (137-145) mmol/L Potassium 3.4 L (3.5-5.1) mmol/L Chloride 96 L (98-107) mmol/L BUN 21 H (7-17) mg/dL Creatinine 2.44 H (0.52-1.04) mg/dL Microbiology - Last 24 Hours (Table) 06/12/23 23:30 Gram Stain - Preliminary Pleural Fluid Body Fluid Culture - Preliminary 06/13/23 11:06 Blood Culture - Preliminary Blood 06/13/23 10:14 Blood Culture - Preliminary Blood 06/12/23 23:30 Anaerobic Culture - Preliminary Pleural Fluid
--- NOTE | 2023-06-16 15:42 | P.PN ---
Subjective Progress Note Date: 06/16/23 Principal diagnosis: Left sided effusion and pneumonia Patient is a 77-year-old female with past medical history significant for end-stage renal disease on peritoneal dialysis since March 2023, also history of hypertension hyperlipidemia TIA presenting to the ER for evaluation of shortness of breath, patient did have large left-sided effusion status post thoracocentesis, patient has been switched over to hemodialysis. On today's evaluation that is 06/16/2023 the patient continues to be afebrile, the patient is currently breathing comfortably on 3 L nasal cannula oxygen patient is currently undergoing dialysis Patient has been tolerating it patient denies having any chest pain occasional cough and no sputum production no abdominal pain or diarrhea Objective - Vital Signs Vital signs: Vital Signs Temp 97.8 F 06/16/23 11:39 Pulse 80 06/16/23 11:39 Resp 18 06/16/23 11:39 BP 162/75 06/16/23 11:39 Pulse Ox 93 L 06/16/23 11:39 FiO2 60 06/15/23 00:33 Intake & Output 06/15/23 06/16/23 06/16/23 18:59 06:59 18:59 Intake Total 600 250 Output Total 1450 400 200 Balance -850 -400 50 Weight 71.4 kg Intake: IV 10 10 Invasive Line 1 10 10 Intake, IV Titration 50 Amount Cefepime 1 gm In Sodium 50 Chloride 0.9% 50 ml @ 12. 5 mls/hr IVPB Q24HR [facility] Rx#:[id number] Oral 240 240 Hemodialysis 300 Output: Urine 450 400 200 Uretheral (Dupree) 300 Hemodialysis 1000 Other: Voiding Method Indwelling Catheter Toilet Toilet - Exam GENERAL DESCRIPTION: Elderly female lying in bed in no distress RESPIRATORY SYSTEM: Unlabored breathing , decreased breath sounds at bases HEART: S1 S2 regular rate and rhythm ,no loud murmurs ABDOMEN: Soft , no tenderness EXTREMITIES: No edema feet - Labs CBC & Chem 7: 06/14/23 06:43 06/16/23 09:47 Labs: Abnormal Lab Results - Last 24 Hours (Table) 06/16/23 Range/Units 09:47 Sodium 129 L (137-145) mmol/L Potassium 3.4 L (3.5-5.1) mmol/L Chloride 96 L (98-107) mmol/L BUN 21 H (7-17) mg/dL Creatinine 2.44 H (0.52-1.04) mg/dL Microbiology - Last 24 Hours (Table) 06/12/23 23:30 Gram Stain - Preliminary Pleural Fluid Body Fluid Culture - Preliminary 06/13/23 11:06 Blood Culture - Preliminary Blood 06/13/23 10:14 Blood Culture - Preliminary Blood 06/12/23 23:30 Anaerobic Culture - Preliminary Pleural Fluid Assessment and Plan (1) Leukocytosis Current Visit: Yes Status: Acute Code(s): D72.829 - ELEVATED WHITE BLOOD CE LL COUNT, UNSPECIFIED SNOMED Code(s): 958527531 (2) Pleural effusion, right Current Visit: Yes Status: Acute Code(s): J90 - PLEURAL EFFUSION, NOT ELSEWHERE CLASSIFIED SNOMED Code(s): 61792578 (3) Pneumonia Current Visit: Yes Status: Acute Code(s): J18.9 - PNEUMONIA, UNSPECIFIED ORGANISM SNOMED Code(s): 725209945 Plan: 1patient presented to the hospital with increasing shortness of breath which is likely multifactorial and more likely related to fluid overload in this patient who do have a history of end-stage renal disease on peritoneal dialysis but not getting enough fluid out at the end of the session noticed to have significant effusion status post thoracocentesis however no cell count was done there is possible compressive atelectasis rather than pneumonia and elevated white count more likely reactive. 2procalcitonin is 0.74 , pleural fluid cultures are currently pending 3-Patient has shown some clinical improvement, patient will continue with cefepime while waiting for the culture to finalize and monitor clinical course closely Dictation was produced using [employer] dictation software. please excuse any grammatical, word or spelling errors. Time with Patient: Less than 30
--- NOTE | 2023-06-16 16:38 | P.PN ---
Subjective Patient is seen for follow-up for end-stage renal disease maintained on peritoneal dialysis. She was admitted to the hospital with shortness of breath and large right pleural effusion for which patient had thoracentesis of about 3.2 L of fluid. 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 Hemodialysis catheter was placed 06/14/2023 and patient tolerated her first hemodialysis treatment fairly well. Tolerated HD well yesterday with UF 1.3 L. BP is not low any more. No complaints today. Objective - Vital Signs Vital signs: Vital Signs Temp 97.0 F L 06/16/23 15:02 Pulse 65 06/16/23 15:02 Resp 16 06/16/23 15:02 BP 179/69 06/16/23 15:02 Pulse Ox 98 06/16/23 15:02 FiO2 60 06/15/23 00:33 Intake & Output 06/15/23 06/16/23 06/16/23 18:59 06:59 18:59 Intake Total 600 820 Output Total 1365 376 5693 Balance -850 -400 -1780 Weight 71.4 kg Intake: IV 10 130 .9@10 120 Invasive Line 1 10 10 Intake, IV Titration 50 50 Amount Cefepime 1 gm In Sodium 50 50 Chloride 0.9% 50 ml @ 12. 5 mls/hr IVPB Q24HR [facility] [place] Rx#:[id number] Oral 240 240 Hemodialysis 300 400 Output: Urine 450 400 200 Uretheral (Dupree) 300 Hemodialysis 1000 2400 Other: Voiding Method Indwelling Catheter Toilet Toilet - Exam Patient is awake, comfortable, in no acute distress Examination of the heart S1 and S2 Examination of the lungs bilateral breath sounds are heard, decrease at the bases, particularly right side No active bleeding noted from the catheter site today. Abdomen is soft nontender Examination lower extremity shows edema trace bilaterally [employer] exam grossly intact - Labs CBC & Chem 7: 06/14/23 06:43 06/16/23 09:47 Labs: Abnormal Lab Results - Last 24 Hours (Table) 06/16/23 Range/Units 09:47 Sodium 129 L (137-145) mmol/L Potassium 3.4 L (3.5-5.1) mmol/L Chloride 96 L (98-107) mmol/L BUN 21 H (7-17) mg/dL Creatinine 2.44 H (0.52-1.04) mg/dL Microbiology - Last 24 Hours (Table) 06/12/23 23:30 Gram Stain - Preliminary Pleural Fluid Body Fluid Culture - Preliminary 06/13/23 11:06 Blood Culture - Preliminary Blood 06/13/23 10:14 Blood Culture - Preliminary Blood 06/12/23 23:30 Anaerobic Culture - Preliminary Pleural Fluid Assessment and Plan Assessment: 1. End-stage renal disease maintained on peritoneal dialysis. 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 Acute hypoxic respiratory failure secondary to large right pleural effusion and fluid overload 3. Volume overload associated with recent decreased UF with PD exchanges. 4. Hypertension with CK D stage IV 5. Lactic acidosis 6. Large right pleural effusion most likely associated with peritoneal dialysis with pleuroperitoneal leak, status post right thoracentesis with 3.2 L of fluid removed. 7. Oozing from site of IJ permacath placement, improved. Plan: Hemodialysis today and repeat in am. Can discharge tomorrow post HD. Continue to hold peritoneal dialysis for now
[2023-06-16] MEDS: ATORVASTATIN 40 MG TAB PO SCH (17:10)
[2023-06-16] MEDS: ASPIRIN 81 MG PO SCH (17:11)
[2023-06-16] MEDS: traMADol 50 MG TAB PO SCH (20:23)
[2023-06-16] MEDS: FOLIC ACID-VIT B COMPLEX-VIT C 1 CAP PO SCH (23:55)
[2023-06-17] MEDS: carvediloL 12.5 MG TAB PO SCH ×2 (06:27→17:36)
[2023-06-17] MEDS: cycloSPORINE 0.05% OPHTH 0.4 ML DROPERETTE BOTH EYES SCH (07:58)
[2023-06-17] MEDS: CYANOCOBALAMIN 500 MCG TAB PO SCH (07:58)
[2023-06-17] MEDS: allopurinoL 100 MG TAB PO SCH ×2 (07:59→17:36)
[2023-06-17] MEDS: TORSEMIDE 20 MG TAB PO SCH (07:59)
[2023-06-17] MEDS: APIXABAN 2.5 MG TABLET PO SCH (07:59)
[2023-06-17] MEDS: FAMOTIDINE 20 MG TAB PO SCH (07:59)
[2023-06-17] MEDS: VENLAFAXINE HCL ER 150 MG CAP PO SCH (07:59)
[2023-06-17] MEDS: CEFEPIME 1 GM in SODIUM CHLORIDE 0.9% 50 ML IVPB SCH (08:03)
[2023-06-17 08:05] LABS: Anisocytosis Slight; Basophils % (A) 0 %; Eosinophils # (A) 0.2 k/uL (0-0.7); Eosinophils % (A) 3 %; HCT 27.6 % (34.0-46.0); HGB 9.2 gm/dL (11.4-16.0); Lymphocytes # (A) 1.7 k/uL (1.0-4.8); Lymphocytes % (A) 22 %; MCH 30.1 pg (25.0-35.0); MCHC 33.3 g/dL (31.0-37.0); MCV 90.3 fL (80.0-100.0); Monocytes # (A) 0.5 k/uL (0-1.0); Monocytes % (A) 7 %; Neutrophils # (A) 5.1 k/uL (1.3-7.7); Neutrophils % (A) 67 %; Platelet Count 137 k/uL (150-450); RBC 3.06 m/uL (3.80-5.40); RDW 17.6 % (11.5-15.5); WBC 7.6 k/uL (3.8-10.6)
[2023-06-17 08:06] VITALS: RESP 18
[2023-06-17 08:23] LABS: ALT 22 U/L (4-34); AST 24 U/L (14-36); African American GFR (CKD) 23 (>60 ml/min/1.73 sqM); Albumin 2.9 g/dL (3.5-5.0); Alkaline Phosphatase 66 U/L (38-126); Anion Gap 7 mmol/L; Blood Urea Nitrogen 15 mg/dL (7-17); Calcium 8.8 mg/dL (8.4-10.2); Carbon Dioxide 26 mmol/L (22-30); Chloride 99 mmol/L (98-107); Glucose 83 mg/dL (74-99); Non-African American GFR(CKD) 20 (>60 ml/min/1.73 sqM); Potassium 3.4 mmol/L (3.5-5.1); Sodium 132 mmol/L (137-145); Total Bilirubin 0.8 mg/dL (0.2-1.3); Total Protein 5.2 g/dL (6.3-8.2)
--- NOTE | 2023-06-17 10:33 | P.PN ---
Subjective Progress Note Date: 06/17/23 Principal diagnosis: right-sided pleural effusion I am seeing this patient in consultation today 06/13/2023 in the emergency room for a large right-sided pleural effusion. Patient is a 77-year-old female with end-stage renal disease peritoneal dialysis, hypertension, hyperlipidemia, TIA. The patient presented to the emergency room via EMS last night with complaints of acute respiratory distress that started yesterday. Apparently, the patient receives peritoneal dialysis on a regular basis at home. The has been instilling approximately 2 L of peritoneal dialysate with each round. He has only been draining approximately 1 L back each time. Patient's states that they tried multiple maneuvers to drain the fluid. Denies any fevers, chills, myalgias, abdominal pain, or bloody or purulent drainage from the PD cath. On arrival to the emergency room, the patient was found to have a large right pleural effusion causing mediastinal shift to the left. The patient underwent a large-volume thoracentesis by ER physician with a total of 3.2 L of fluid removed. The fluid appears clear, and will be sent for cytology. The patient denies any history of lung cancer or prior pleural effusions. Repeat chest x-ray following the thoracentesis shows marked improvement of the right sided pleural effusion, and there were small bilateral pleural effusions. No longer any tracheal or mediastinal shift. No evidence of pneumothoraces. Patient reports improvement in her work of breathing. She is currently on the BiPAP with settings of 12/6 and FiO2 60%. This will likely be able to be weaned off later this morning. CBC on arrival shows a WBC count of 15.6, hemoglobin 11.5, hematocrit 36.5, platelets 255. BMP shows sodium 133, potassium 3.8, chloride 96, serum bicarbonate 23, BUN 39, creatinine 3.58, glucose 282. Lactic acid level was elevated at 4.4 and is down to 3.8. Troponin 0.014. NT proBNP elevated at 3090. Nephrology was consulted for management of peritoneal dialysis and the PD catheter. As stated above, the patient appears much more c omfortable, and will be monitored on the cardiac stepdown unit. Patient was reevaluated today on 06/14/2023, patient is developing pleural effusion on the right side again. Apparently peritoneal dialysis was attempted again yesterday, and the patient could not have peritoneal dialysis, unsuccessful, she developed and she also developed worsening shortness of breath. Hence the patient had a temporary hemodialysis catheter placed by vascular surgery, and she will have hemodialysis today. In the meantime I reviewed the chest x-ray, reviewed the ultrasound of the chest, effusion is still relatively small, but may or may not require thoracentesis depending on how the patient responds to hemodialysis/ultrafiltration which is scheduled to be done today. Patient is on 6 L nasal cannula with O2 sat of 95%.labs from today were all reviewed BUN is 62 creatinine 5.5. CBC is relatively unremarka ble. Patient was reevaluated today on 06/15/2023, underwent hemodialysis yesterday, she is now on 4 L nasal cannula does not seem to be in any distress, I am considering a right-sided thoracentesis on this patient because of her pleural effusion, however before making a final decision on thoracentesis would like to check chest x-ray today and decide whether a thoracentesis is necessary. WBC count is 15.4 hemoglobin 9.8 electrolytes are normal BUN is 62 creatinine 5.5. Patient is complaining of generalized weakness. Her blood pressure is 138/88, Reevaluated today on 06/16/23, patient is doing great, her chest x-ray showed very minimal tiny right-sided pleural effusion, not large enough to consider thoracentesis. Patient is now on 2 L nasal cannula and her O2 saturation is 97%, I believe the patient could be considered for discharge planning if cleared by other consultants including nephrology. Again no need for thoracentesis, her pleural effusion is responding to hemodialysis. Labs and medications were reviewed. Would recommend stopping antibiotics, did not feel that the patient had pneumonia, and her pleural effusion is mostly related to fluid overload, and possibly related to her ascites and fluid in her abdomen from peritoneal catheter. Reevaluated today on 06/17/2023, patient is doing well, asymptomatic, on room air, in my note yesterday, patient was cleared for discharge planning if cleared by other consultants, and I feel the same way today. Did not require repeat thoracentesis since her follow-up chest x-ray showed dramatic improvement in her right-sided pleural effusion. And the patient is receiving hemodialysis. Objective - Vital Signs Vital signs: Vital Signs Temp 98.9 F 06/17/23 08:05 Pulse 72 06/17/23 08:05 Resp 18 06/17/23 08:05 BP 168/81 06/17/23 08:05 Pulse Ox 93 L 06/17/23 08:05 FiO2 60 06/15/23 00:33 Intake & Output 06/16/23 06/17/23 06/17/23 18:59 06:59 18:59 Intake Total 820 540 Output Total 2600 750 Balance -1780 -210 Weight 69.1 kg Intake: IV 130 .9@10 120 Invasive Line 1 10 Intake, IV Titration 50 Amount Cefepime 1 gm In Sodium 50 Chloride 0.9% 50 ml @ 12. 5 mls/hr IVPB Q24HR [facility] Rx#:[id number] Oral 240 540 Hemodialysis 400 Output: Urine 200 750 Hemodialysis 2400 Other: Voiding Method Toilet Toilet Toilet # Voids 1 - Exam Physical Exam: Revealed 77-year-old female in no distress on room air. Head: Atraumatic, normocephalic. HEENT:[Neck is supple.] [No neck masses.] [No thyromegaly.] [No JVD.]right subclavian hemodialysis catheter is noted. Chest: good breath sound bilaterally no crackles or rhonchi or wheezes Cardiac Exam: [Normal S1 and S2, no S3 gallop, no murmur.] Abdomen: [Soft, nontender, no megaly, no rebound, no guarding, normal bowel sounds.] Extremities: [No clubbing, trace of bipedal edema is noted. Neurological Exam: [No focal neurologic deficit.] psychiatric: Normal mood affect and normal mental status examination. - Labs CBC & Chem 7: 06/17/23 06:42 06/17/23 06:42 Labs: Abnormal Lab Results - Last 24 Hours (Table) 06/16/23 06/17/23 06/17/23 Range/Units 09:47 06:42 06:42 RBC 3.06 L (3.80-5.40) m/uL Hgb 9.2 L (11.4-16.0) gm/dL Hct 27.6 L (34.0-46.0) % RDW 17.6 H (11.5-15.5) % Plt Count 137 L (150-450) k/uL Sodium 129 L 132 L (137-145) mmol/L Potassium 3.4 L 3.4 L (3.5-5.1) mmol/L Chloride 96 L (98-107) mmol/L BUN 21 H (7-17) mg/dL Creatinine 2.44 H 2.31 H (0.52-1.04) mg/dL Total Protein 5.2 L (6.3-8.2) g/dL Albumin 2.9 L (3.5-5.0) g/dL Microbiology - Last 24 Hours (Table) 06/12/23 23:30 Gram Stain - Final Pleural Fluid Body Fluid Culture - Final 06/13/23 11:06 Blood Culture - Preliminary Blood 06/13/23 10:14 Blood Culture - Preliminary Blood Assessment and Plan Assessment: impression:Large right-sided pleural effusion status post large volume thoracentesis with a total of 3.2 L of fluid removed. this was done by the ER physician. Recurrent right-sided pleural effusion , resolved with hemodialysis Acute hypoxemic respiratory failure secondary to above, resolving. End-stage renal disease with peritoneal dialysis, patient has had troubles draining her PD cath Lactic acidemia, resolved. Benign essential hypertension Hyperlipidemia History of TIA History of gout Remote ex-smoker Clinically the patient did not have pneumonia, hence I would recommend stopping her antibiotics and consider discharging the patient home. Recommendation: We'll clear the patient for discharge if cleared by other consultants, again no need for thoracentesis. Continue hemodialysis. We will continue to follow. Time with Patient: Less than 30
[2023-06-17] MEDS ORDERED: POTASSIUM CHLORIDE ER 20 MEQ TAB.ER PO STA (11:27)
--- NOTE | 2023-06-17 12:42 | P.PN ---
Subjective Progress Note Date: 06/17/23 History of present illness: This is a 77-year-old female patient of Dr. MICHELLE Deleon with past medical history of hypertension, hyperlipidemia, end-stage renal disease with CAPD. We have been asked to evaluate the patient for atrial fibrillation. Patient presented to the hospital on 06/12 with respiratory distress found to have a large right- sided pleural effusion. Patient has had difficulty with peritoneal dialysis with fluid overload. Patient underwent a thoracentesis in the emergency center removal of 3.2 L. Peritoneal dialysis was attempted but unsuccessful patient developed worsening shortness of breath. Yesterday patient had an IJ permacath placement for hemodialysis which was placed on 06/13. Patient started hemodialysis yesterday. Telemetry currently showing sinus rhythm. She states he r breathing is much improved but not back to her normal. She denies feeling palpitations or other symptoms at the time of onset of Afib. She has converted to sinus this morning. Patient is undergoing HD this morning. EKG obtained on 06/14 at 1125 revealed atrial fibrillation with ventricular rate of 115 Chest x-ray: Performed on 06/14 revealed placement of right-sided double-lumen hemodialysis catheter ongoing moderate right and small left pleural effusions with adjacent atelectasis and/or consolidation Home cardiac medications:Aspirin 81 mg daily, Lipitor 40 mg daily, Coreg 12.5 mg twice daily, Plavix 75 mg daily, potassium chloride 10 mEq daily, torsemide 20 mg daily. Echocardiogram 02/2021 performed in the office revealed EF of 55%, moderate left ventricular hypertrophy, [id number] mitral regurgitation, mild tricuspid regurgitation, mild pulmonary regurgitation. Lexiscan stress test performed in the office on 03/19/2021 revealed EF 60% with no ischemia. Holter monitor February 2021 revealed predominantly sinus, average heart rate 67 with short run of PAT. 06/16 Patient is seen today in follow-up. Patient is in a sinus rhythm. Echocardiogram reveals EF 55% with moderate left ventricular hypertrophy, moderate MR, moderate left ventricular dilation. Blood pressures have been e levated 179/69, heart rate running in the 50s to 80, pulse ox 90% on 2 L. Patient states her breathing is little bit better today. She has had good urine output. She denies having any chest pain or pressure. Patient underwent HD today. 06/17 Patient is seen in follow-up. Blood pressure readings are improved. Patient is to be on eliquis and Plavix and aspirin are discontinued. Patient denies any new complaints. Heart rate is running 75. Blood pressure 143/58. Repeat blood work reveals hemoglobin 9.2, platelet count 137, BUN 15 creatinine 2.3. Physical examination: Gen: This is a 77-year-old female. She is resting bed appears very comfortable and in no acute distress. VS: reviewed HEENT: Head is atraumatic, normocephalic. Pupils equal, round. Sclerae is anicteric. NECK: Supple. No JVD. LUNGS: Diminished. No intercostal retractions. HEART: Regular rate and rhythm. No murmur. ABDOMEN: Soft No tenderness. EXTREMITIES: No pedal edema. No calf tenderness. NEUROLOGICAL: Patient is awake, alert and oriented x3. Assessment: New onset atrial fibrillation, paroxysmal Large right sided pleural effusion status post thoracentesis Recurrent right-sided pleural effusion End-stage renal disease on peritoneal dialysis and having difficulty draining from the PD catheter Status post permacath placement and started on hemodialysis Hypertension Hyperlipidemia Plan: Continue patient on Coreg 12.5 mg twice daily Continue other home cardiac medications Continue eliquis and hold Plavix and aspirin at discharge Cardiology will sign off and follow on an as-needed basis. Please reconsult for any new concerns. Patient to follow-up with Dr. Deleon in one to 2 weeks. Nurse practitioner note has been reviewed, I agree with documented findings and plan of care. Patient was seen and examined. Objective - Vital Signs Vital signs: Vital Signs Temp 97.6 F 06/17/23 12:16 Pulse 75 06/17/23 12:16 Resp 18 06/17/23 12:16 BP 143/58 06/17/23 12:16 Pulse Ox 93 L 06/17/23 12:16 FiO2 60 06/15/23 00:33 Intake & Output 06/16/23 06/17/23 06/17/23 18:59 06:59 18:59 Intake Total 820 540 170 Output Total 2600 750 Balance -1780 -210 170 Weight 69.1 kg Intake: IV 130 120 .9@10 120 120 Invasive Line 1 10 Intake, IV Titration 50 50 Amount Cefepime 1 gm In Sodium 50 50 Chloride 0.9% 50 ml @ 12. 5 mls/hr IVPB Q24HR [facility] Rx#:[id number] Oral 240 540 Hemodialysis 400 Output: Urine 200 750 Hemodialysis 2400 Other: Voiding Method Toilet Toilet Toilet # Voids 1 1 - Labs CBC & Chem 7: 06/17/23 06:42 06/17/23 06:42 Labs: Abnormal Lab Results - Last 24 Hours (Table) 06/17/23 06/17/23 Range/Units 06:42 06:42 RBC 3.06 L (3.80-5.40) m/uL Hgb 9.2 L (11.4-16.0) gm/dL Hct 27.6 L (34.0-46.0) % RDW 17.6 H (11.5-15.5) % Plt Count 137 L (150-450) k/uL Sodium 132 L (137-145) mmol/L Potassium 3.4 L (3.5-5.1) mmol/L Creatinine 2.31 H (0.52-1.04) mg/dL Total Protein 5.2 L (6.3-8.2) g/dL Albumin 2.9 L (3.5-5.0) g/dL Microbiology - Last 24 Hours (Table) 06/12/23 23:30 Gram Stain - Final Pleural Fluid Body Fluid Culture - Final 06/13/23 11:06 Blood Culture - Preliminary Blood 06/13/23 10:14 Blood Culture - Preliminary Blood
--- NOTE | 2023-06-17 13:11 | P.PN ---
Subjective Patient is seen for follow-up for end-stage renal disease maintained on peritoneal dialysis. She was admitted to the hospital with shortness of breath and large right pleural effusion for which patient had thoracentesis of about 3.2 L of fluid. 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 Hemodialysis catheter was placed 06/14/2023 and patient tolerated her first hemodialysis treatment fairly well. Tolerated HD well yesterday with UF 2.4 L. BP is not low any more. No complaints today. Patient will be dialyzed again today. Objective - Vital Signs Vital signs: Vital Signs Temp 97.6 F 06/17/23 12:16 Pulse 75 06/17/23 12:16 Resp 18 06/17/23 12:16 BP 143/58 06/17/23 12:16 Pulse Ox 93 L 06/17/23 12:16 FiO2 60 06/15/23 00:33 Intake & Output 06/16/23 06/17/23 06/17/23 18:59 06:59 18:59 Intake Total 820 540 170 Output Total 2600 750 Balance -1780 -210 170 Weight 69.1 kg Intake: IV 130 120 .9@10 120 120 Invasive Line 1 10 Intake, IV Titration 50 50 Amount Cefepime 1 gm In Sodium 50 50 Chloride 0.9% 50 ml @ 12. 5 mls/hr IVPB Q24HR [facility] Rx#:[id number] Oral 240 540 Hemodialysis 400 Output: Urine 200 750 Hemodialysis 2400 Other: Voiding Method Toilet Toilet Toilet # Voids 1 1 - Exam Patient is awake, comfortable, in no acute distress Examination of the heart S1 and S2 Examination of the lungs bilateral breath sounds are heard, decrease at the bases, particularly right side No active bleeding noted from the catheter site today. Abdomen is soft nontender Examination lower extremity shows edema trace bilaterally [employer] exam grossly intact - Labs CBC & Chem 7: 06/17/23 06:42 06/17/23 06:42 Labs: Abnormal Lab Results - Last 24 Hours (Table) 06/17/23 06/17/23 Range/Units 06:42 06:42 RBC 3.06 L (3.80-5.40) m/uL Hgb 9.2 L (11.4-16.0) gm/dL Hct 27.6 L (34.0-46.0) % RDW 17.6 H (11.5-15.5) % Plt Count 137 L (150-450) k/uL Sodium 132 L (137-145) mmol/L Potassium 3.4 L (3.5-5.1) mmol/L Creatinine 2.31 H (0.52-1.04) mg/dL Total Protein 5.2 L (6.3-8.2) g/dL Albumin 2.9 L (3.5-5.0) g/dL Microbiology - Last 24 Hours (Table) 06/12/23 23:30 Anaerobic Culture - Final Pleural Fluid 06/12/23 23:30 Gram Stain - Final Pleural Fluid Body Fluid Culture - Final 06/13/23 11:06 Blood Culture - Preliminary Blood 06/13/23 10:14 Blood Culture - Preliminary Blood Assessment and Plan Assessment: 1. End-stage renal disease maintained on peritoneal dialysis. Peritoneal di alysis on hold due to pleuroperitoneal fistula and recurrent pleural effusion 2. Acute hypoxic respiratory failure secondary to large right pleural effusion and fluid overload 3. Volume overload associated with recent decreased UF with PD exchanges. 4. Hypertension with CK D stage IV 5. Lactic acidosis 6. Large right pleural effusion most likely associated with peritoneal dialysis with pleuroperitoneal leak, status post right thoracentesis with 3.2 L of fluid removed. 7. Oozing from site of IJ permacath placement, improved. Plan: Hemodialysis today and okay to discharge post dialysis. Follow-up as outpatient for next hemodialysis treatment on Monday Continue to hold peritoneal dialysis for now
--- NOTE | 2023-06-17 13:35 | P.DS ---
Providers Date of admission: 06/12/23 23:09 Expected date of discharge: 06/17/23 Attending physician: Kel Nielsen Consults: 06/12/23 23:09 Consult Physician Routine Consulting Provider: Andrea Bautista Consult Reason/Comments: effusion Do you want consulting provider notified?: Yes Consult Physician Routine Consulting Provider: Analisa Mayorga Consult Reason/Comments: dialysis Do you want consulting provider notified?: Yes 06/13/23 09:53 Consult Physician Routine Consulting Provider: Socorro Muhammad Consult Reason/Comments: Sepsis pneumonia Do you want consulting provider notified?: Yes 06/13/23 21:51 Consult Physician Urgent Consulting Provider: Jaswant Srinivasan Consult Reason/Comments: HD cath placement Do you want consulting provider notified?: Yes, Notify in am 06/14/23 11:46 Consult Physician Routine Consulting Provider: Brett Thurman Consult Reason/Comments: a fib Do you want consulting provider notified?: Yes Primary care physician: [facility] Course: Discharge diagnoses; Bacterial pneumonia Acute hypoxemic respiratory failure Right pleural effusion status post thoracentesis End-stage renal disease on peritoneal dialysis Lactic acidemia Benign essential hypertension Hyperlipidemia History of TIA History of gout Hospital course; patient 77-year-old lady with past medical history significant for end-stage renal disease on dialysis who presented to the ER because of shortness of breath. Patient does peritoneal dialysis at home and states that for the last 2 days she was getting more short of breath. Shortness of breath was present on rest as well as exertion. Patient stated that normally they use 2 L of fluid for peritoneal dialysis but she was only getting 1 L of fluid in return. Denied any chest pain. Because of worsening shortness of breath, EMS was called and patient was found to be saturating in 60s on room air, patient was placed on BiPAP and was brought to the ER. In the ER, patient underwent imaging and labs Initial lab work done in the ER showed he received 15.6, hemoglobin 11.5, platelet count 255, sodium 133, potassium 3.8, chloride 96, BUN 39, creatinine 3.58 phosphorous 5.8, troponin 0.014 Chest x-ray done in the ER showed interval development of a large suspected right pleural effusion with associated atelectasis Patient underwent thoracentesis in the ER and was admitted to medicine service 06/14. Patient seen and examined. Patient had dialysis catheter placed, will be undergoing hemodialysis session today 06/15. Patient seen and examined. Was lightheaded this morning, orthostatic blood positive. Patient undergoing her second session of dialysis 06/16. Patient seen and examined. States she feels better. Complaining of left flank pain 06/17. Patient seen and examined. Patient will dialysis this morning, nephrology cleared the patient for discharge after dialysis. Being discharged on oral Ceftin for one week. PHYSICAL EXAMINATION: GENERAL: The patient is alert and oriented x3, not in any acute distress. Well developed, well nourished. HEENT: Pupils are round and equally reacting to light. EOMI. No scleral icterus. No conjunctival pallor. Normocephalic, atraumatic. No pharyngeal erythema. No thyromegaly. CARDIOVASCULAR: S1 and S2 present. No murmurs, rubs, or gallops. PULMONARY: Chest is clear to auscultation, no wheezing or crackles. ABDOMEN: Soft, nontender, nondistended, normoactive bowel sounds. No palpable organomegaly. MUSCULOSKELETAL: No joint swelling or deformity. EXTREMITIES: No cyanosis, clubbing, or pedal edema. NEUROLOGICAL: Gross neurological examination did not reveal any focal deficits. SKIN: No rashes. Dictation was produced using [employer] dictation software. please excuse any grammatical, word or spelling errors. Patient Condition at Discharge: Stable Plan - Discharge Summary Discharge Rx Participant: No New Discharge Prescriptions: New Apixaban [Eliquis] 2.5 mg PO BID #60 tab cefUROXime axetiL [Cefuroxime] 500 mg PO DAILY 7 Days #7 tab Continue allopurinoL [Zyloprim] 100 mg PO PC-BID Atorvastatin [Lipitor] 40 mg PO PC-SUPPER traMADol HCL [Ultram] 50 mg PO HS calcitrioL [Calcitriol] 0.25 mcg PO MOWEFR Venlafaxine HCl [Effexor XR] 150 mg PO DAILY Cyanocobalamin (Vitamin B-12) [Vitamin B-12] 1,000 mcg PO DAILY Aspirin [Adult Low Dose Aspirin EC] 81 mg PO PC-SUPPER Lactulose [Constulose] 20 gm PO BID PRN PRN Reason: Constipation cycloSPORINE [Restasis] 1 applicator BOTH EYES BID Ergocalciferol [Vitamin D2 (1250 Mcg = 17739 Iu)] 1,250 mcg PO MO amLODIPine [Norvasc] 5 mg PO HS PRN PRN Reason: Blood Pressure >160 carvediloL 12.5 mg PO BID Folic Acid/Vit B Complex and C [Nephro Vitamins Tablet] 0.8 mg PO HS Torsemide [Demadex] 20 mg PO DAILY Potassium Chloride ER [K-Dur 10] 10 meq PO DAILY Famotidine [Pepcid] 20 mg PO PC-BID Discontinued Clopidogrel Bisulfate [Plavix] 75 mg PO PC-SUPPER Discharge Medication List Atorvastatin [Lipitor] 40 mg PO PC-SUPPER 07/27/20 [History] Venlafaxine HCl [Effexor XR] 150 mg PO DAILY 07/27/20 [History] allopurinoL [Zyloprim] 100 mg PO PC-BID 07/27/20 [History] calcitrioL [Calcitriol] 0.25 mcg PO MOWEFR 07/27/20 [History] traMADol HCL [Ultram] 50 mg PO HS 07/27/20 [History] cycloSPORINE [Restasis] 1 applicator BOTH EYES BID 03/08/21 [History] Aspirin [Adult Low Dose Aspirin EC] 81 mg PO PC-SUPPER 03/01/23 [History] Cyanocobalamin (Vitamin B-12) [Vitamin B-12] 1,000 mcg PO DAILY 03/01/23 [History] Ergocalciferol [Vitamin D2 (1250 Mcg = 38326 Iu)] 1,250 mcg PO MO 03/01/23 [History] amLODIPine [Norvasc] 5 mg PO HS PRN 03/01/23 [History] carvediloL 12.5 mg PO BID 03/01/23 [History] Famotidine [Pepcid] 20 mg PO PC-BID 06/12/23 [History] Folic Acid/Vit B Complex and C [Nephro Vitamins Tablet] 0.8 mg PO HS 06/12/23 [History] Lactulose [Constulose] 20 gm PO BID PRN 06/12/23 [History] Potassium Chloride ER [K-Dur 10] 10 meq PO DAILY 06/12/23 [History] Torsemide [Demadex] 20 mg PO DAILY 06/12/23 [History] Apixaban [Eliquis] 2.5 mg PO BID #60 tab 06/15/23 [Rx] cefUROXime axetiL [Cefuroxime] 500 mg PO DAILY 7 Days #7 tab 06/17/23 [Rx] Follow up Appointment(s)/Referral(s): Jadyn Deleon MD [STAFF PHYSICIAN] - 1 Week None,Stated [REFERRING] - 1-2 days Socorro Muhammad MD [STAFF PHYSICIAN] - 1 Week Analisa Mayorga MD [STAFF PHYSICIAN] - 1 Week Activity/Diet/Wound Care/Special Instructions: Hemodialysis chair time at [facility] - Monday, , Monday @1100 - arrive 15 minutes early on first date of dialysis - start date Monday06/20/23 Discharge Disposition: HOME WITH HOME HEALTH SERVICES
--- NOTE | 2023-06-17 15:49 | P.PN ---
Subjective Progress Note Date: 06/17/23 Principal diagnosis: Left sided effusion and pneumonia Patient is a 77-year-old female with past medical history significant for end-stage renal disease on peritoneal dialysis since March 2023, also history of hypertension hyperlipidemia TIA presenting to the ER for evaluation of shortness of breath, patient did have large left-sided effusion status post thoracocentesis, patient has been switched over to hemodialysis. On today's evaluation that is 06/17/2023 the patient remains to be afebrile, the patient is currently breathing comfortably on room air, patient denies having any chest pain occasional cough and no sputum production no abdominal pain or diarrhea Objective - Vital Signs Vital signs: Vital Signs Temp 97.6 F 06/17/23 12:16 Pulse 75 06/17/23 12:16 Resp 18 06/17/23 12:16 BP 143/58 06/17/23 12:16 Pulse Ox 93 L 06/17/23 12:16 FiO2 60 06/15/23 00:33 Intake & Output 06/16/23 06/17/23 06/17/23 18:59 06:59 18:59 Intake Total 820 540 350 Output Total 2600 750 Balance -1780 -210 350 Weight 69.1 kg Intake: IV 130 120 .9@10 120 120 Invasive Line 1 10 Intake, IV Titration 50 50 Amount Cefepime 1 gm In Sodium 50 50 Chloride 0.9% 50 ml @ 12. 5 mls/hr IVPB Q24HR [facility] Rx#:[id number] Oral 240 540 180 Hemodialysis 400 Output: Urine 200 750 Hemodialysis 2400 Other: Voiding Method Toilet Toilet Toilet # Voids 1 1 - Exam GENERAL DESCRIPTION: Elderly female lying in bed in no distress RESPIRATORY SYSTEM: Unlabored breathing , decreased breath sounds at bases HEART: S1 S2 regular rate and rhythm ,no loud murmurs ABDOMEN: Soft , no tenderness EXTREMITIES: No edema feet - Labs CBC & Chem 7: 06/17/23 06:42 06/17/23 06:42 Labs: Abnormal Lab Results - Last 24 Hours (Table) 06/17/23 06/17/23 Range/Units 06:42 06:42 RBC 3.06 L (3.80-5.40) m/uL Hgb 9.2 L (11.4-16.0) gm/dL Hct 27.6 L (34.0-46.0) % RDW 17.6 H (11.5-15.5) % Plt Count 137 L (150-450) k/uL Sodium 132 L (137-145) mmol/L Potassium 3.4 L (3.5-5.1) mmol/L Creatinine 2.31 H (0.52-1.04) mg/dL Total Protein 5.2 L (6.3-8.2) g/dL Albumin 2.9 L (3.5-5.0) g/dL Microbiology - Last 24 Hours (Table) 06/12/23 23:30 Anaerobic Culture - Final Pleural Fluid 06/12/23 23:30 Gram Stain - Final Pleural Fluid Body Fluid Culture - Final 06/13/23 11:06 Blood Culture - Preliminary Blood 06/13/23 10:14 Blood Culture - Preliminary Blood Assessment and Plan (1) Leukocytosis Current Visit: Yes Status: Acute Code(s): D72.829 - ELEVATED WHITE BLOOD CELL COUNT, UNSPECIFIED SNOMED Code(s): 044201114 (2) Pleural effusion, right Current Visit: Yes Status: Acute Code(s): J90 - PLEURAL EFFUSION, NOT ELSEWHERE CLASSIFIED SNOMED Code(s): 21742580 (3) Pneumonia Current Visit: Yes Status: Acute Code(s): J18.9 - PNEUMONIA, UNSPECIFIED ORGANISM SNOMED Code(s): 580293946 Plan: 1patient presented to the hospital with increasing shortness of breath which is likely multifactorial and more likely related to fluid overload in this patient who do have a history of end-stage renal disease on peritoneal dialysis but not getting enough fluid out at the end of the session noticed to have significant effusion status post thoracocentesis however no cell count was done there is possible compressive atelectasis rather than pneumonia and elevated white count more likely reactive. 2procalcitonin is 0.74 , pleural fluid cultures are so far negative 3-Patient has shown some clinical improvement, and the patient white count has normalized currently be treated with cefepime and consider short course of oral Ceftin on discharge discussed with the admitting team Dictation was produced using [employer] software. please excuse any grammatical, word or spelling errors.
[2023-06-17] MEDS: ATORVASTATIN 40 MG TAB PO SCH (17:36)
[2023-06-17 18:36] VITALS: BP 163/76; PULSE 71; TEMP 97.9
[2023-06-19] MEDS ORDERED: ERGOCALCIFEROL 1,250 MCG (50,000 IU) CAPSULE PO SCH (09:00)
== END 2023-06-17 19:26 | disposition home health service (06) | DRG 673 ==
LOC: EC 20:48 → 3SCARD 23:09 → UNDODISIN 06-14 11:14 → 3SCARD 06-14 11:41
PROVIDERS: ADMIT Hospitalist; ATTEND Hospitalist
PROC: 5A09357 Assistance with Respiratory Ventilation, Less than 24 Consecutive Hours, Continuous Positive Airway Pressure (ICD-10-PCS; 2023-06-12)
PROC: 0W9930Z Drainage of Right Pleural Cavity with Drainage Device, Percutaneous Approach (ICD-10-PCS; 2023-06-12)
PROC: 0JH63XZ Insertion of Tunneled Vascular Access Device into Chest Subcutaneous Tissue and Fascia, Percutaneous Approach (ICD-10-PCS; principal; 2023-06-14 09:30)
PROC: 02HV33Z Insertion of Infusion Device into Superior Vena Cava, Percutaneous Approach (ICD-10-PCS; principal; 2023-06-14 09:30)
PROC: 5A1D70Z Performance of Urinary Filtration, Intermittent, Less than 6 Hours Per Day (ICD-10-PCS; principal; 2023-06-14 09:30)
DX: I13.11 Hypertensive heart and chronic kidney disease without heart failure, with stage 5 chronic kidney disease, or end stage renal disease (principal); J15.9 Unspecified bacterial pneumonia; J96.01 Acute respiratory failure with hypoxia; N18.6 End stage renal disease; J90 Pleural effusion, not elsewhere classified; N17.9 Acute kidney failure, unspecified; J98.11 Atelectasis; E87.20 Acidosis, unspecified; I34.0 Nonrheumatic mitral (valve) insufficiency; K21.9 Gastro-esophageal reflux disease without esophagitis; I95.1 Orthostatic hypotension; I48.0 Paroxysmal atrial fibrillation; J44.9 Chronic obstructive pulmonary disease, unspecified; E78.5 Hyperlipidemia, unspecified; M10.9 Gout, unspecified; F41.9 Anxiety disorder, unspecified; M19.90 Unspecified osteoarthritis, unspecified site; Z87.891 Personal history of nicotine dependence; Z86.73 Personal history of transient ischemic attack (TIA), and cerebral infarction without residual deficits; Z99.2 Dependence on renal dialysis; Z88.1 Allergy status to other antibiotic agents; Z88.5 Allergy status to narcotic agent; Z88.0 Allergy status to penicillin; Z88.2 Allergy status to sulfonamides; Z79.899 Other long term (current) drug therapy; Z79.82 Long term (current) use of aspirin; Z79.02 Long term (current) use of antithrombotics/antiplatelets; Z79.01 Long term (current) use of anticoagulants
CPT/HCPCS: 36415; 36558; 71045; 71046; 74019; 76604; 76937; 77001; 80048; 80053; 82150; 82465; 82945; 83605; 83615; 83735; 83880; 84100; 84145; 84157; 84484; 85025; 85610; 85730; 86140; 86706; 87040; 87070; 87075; 87205; 87340; 87449; 88108; 88305; 88341; 88342; 90935; 93005; 93306; 94640; 94660; 96365; 96366; 96375; 99285

== ENCOUNTER 2023-07-07 11:51 | Day surgery (SDC) | payer MEDICARE, BC, OTHER ==
[~2023-07-07 11:51] MED LIST changes: -ACETAMINOPHEN TAB 500 MG TAB PO PRN; +DEXAMETHASONE SOD PHOSPHATE 4 MG/ML 1 ML VIAL IV ONE; -HEPARIN SODIUM,PORCINE/PF 5,000 UNIT/0.5 ML SYRINGE SQ PRN; -HYDROmorphone 0.5 MG/0.5 ML SYRINGE IVP PRN; +MIDAZOLAM 2 MG/2 ML VIAL IV PRN; +ONDANSETRON 4 MG/2 ML VIAL IVP ONE; +fentaNYL (PF) 50 MCG/ML 2 ML AMP IV PRN
[2023-07-07 12:37] VITALS: TEMP 97.3
[2023-07-07] MEDS ORDERED: SODIUM CHLORIDE 0.9% 500 ML 500 ML IV ONE (12:41)
[2023-07-07] MEDS ORDERED: ONDANSETRON 4 MG/2 ML VIAL IVP ONE (12:45)
[2023-07-07] MEDS ORDERED: DEXAMETHASONE SOD PHOSPHATE 4 MG/ML 1 ML VIAL IVP ONE (12:46)
[2023-07-07 13:02] LABS: Anisocytosis Slight; HGB 10.2 gm/dL (11.4-16.0); Hypochromasia Moderate; MCV 93.9 fL (80.0-100.0); Platelet Count 206 k/uL (150-450); RDW 18.3 % (11.5-15.5); WBC 5.3 k/uL (3.8-10.6)
[2023-07-07 13:09] LABS: African American GFR (CKD) 15 (>60 ml/min/1.73 sqM); Anion Gap 9 mmol/L; Blood Urea Nitrogen 15 mg/dL (7-17); Carbon Dioxide 31 mmol/L (22-30); Chloride 99 mmol/L (98-107); Non-African American GFR(CKD) 13 (>60 ml/min/1.73 sqM); Sodium 139 mmol/L (137-145)
[2023-07-07 13:13] LABS: Potassium 4.2 mmol/L (3.5-5.1)
[2023-07-07] MEDS ORDERED: KETAMINE 10 MG/ML 20 ML VIAL ONE (13:16)
[2023-07-07] MEDS ORDERED: LIDOCAINE 2% INJ 20 MG/ML (2 ML VIAL) ONE (13:16)
[2023-07-07] MEDS ORDERED: MIDAZOLAM 2 MG/2 ML VIAL ONE (13:16)
[2023-07-07] MEDS ORDERED: fentaNYL (PF) 50 MCG/ML 2 ML AMP ONE (13:16)
[2023-07-07] MEDS ORDERED: PROPOFOL 10 MG/ML 20 ML VIAL IV ONE (13:16)
--- NOTE | 2023-07-07 13:19 | P.GSHP ---
History of Present Illness H&P Date: 07/07/23 Chief Complaint: Renal failure 78-year-old female known to our service. Patient had a peritoneal dialysis catheter placed a few months ago. Unfortunately after utilizing the catheter she was found to have pleural effusion. For that reason catheter is being removed today. Past Medical History Past Medical History: Dialysis, GERD/Reflux, Hyperlipidemia, Hypertension, Memory Impairment, Osteoarthritis (OA), Renal Disease Additional Past Medical History / Comment(s): hx of gout, states stage 4 renal disease, brain aneurysm x 2, see Dr Sow H&P, told TIA's- no residual refects, varicose veins, "bad sinus problems", hx bleeding ulcer, constipation, seasonal sinus allergies. a-fib while recently in hospital per pt. dry round spot to forehead will see Dr. givens memory issues. History of Any Multi-Drug Resistant Organisms: None Reported Past Surgical History: Heart Catheterization, Hernia Repair, Hysterectomy, Tonsillectomy Additional Past Surgical History / Comment(s): maria del rosario cataracts, cyst removed left upper leg , maria del rosario great toe-spurs removed, rt IJ dialysis catheter Past Anesthesia/Blood Transfusion Reactions: No Reported Reaction Smoking Status: Former smoker - Past Family History Mother Family Medical History: No Reported History Medications and Allergies Home Medications Medication Instructions Recorded Confirmed Type Atorvastatin [Lipitor] 40 mg PO PC-SUPPER 07/27/20 06/29/23 History Venlafaxine HCl [Effexor XR] 150 mg PO DAILY 07/27/20 06/29/23 History allopurinoL [Zyloprim] 100 mg PO PC-BID 07/27/20 06/29/23 History calcitrioL [Calcitriol] 0.25 mcg PO MOWEFR 07/27/20 06/29/23 History traMADol HCL [Ultram] 50 mg PO HS 07/27/20 06/29/23 History cycloSPORINE [Restasis] 1 applicator BOTH EYES BID 03/08/21 06/29/23 History Cyanocobalamin (Vitamin B-12) 1,000 mcg PO DAILY 03/01/23 06/29/23 History [Vitamin B-12] Ergocalciferol [Vitamin D2 (1250 1,250 mcg PO MO 03/01/23 06/29/23 History Mcg = 03130 Iu)] carvediloL 12.5 mg PO BID 03/01/23 06/29/23 History Famotidine [Pepcid] 20 mg PO PC-BID 06/12/23 06/29/23 History Folic Acid/Vit B Complex and C 0.8 mg PO HS 06/12/23 06/29/23 History [Nephro Vitamins Tablet] Lactulose [Constulose] 20 gm PO BID PRN 06/12/23 06/29/23 History Potassium Chloride ER [K-Dur 10] 10 meq PO DAILY 06/12/23 06/29/23 History Apixaban [Eliquis] 2.5 mg PO BID #60 tab 06/15/23 06/29/23 Rx Allergies Allergy/AdvReac Type Severity Reaction Status Date / Time ciprofloxacin [From Cipro] Allergy "so weak I Verified 07/07/23 12:11 couldn't stand up" codeine Allergy Unknown Verified 07/07/23 12:11 levofloxacin [From Levaquin] Allergy "so weak I Verified 07/07/23 12:11 couldn't even stand up" Penicillins Allergy Rash/Hives Verified 07/07/23 12:11 Sulfa (Sulfonamide Allergy Unknown Verified 07/07/23 12:11 Antibiotics) Childhood diphenhydramine AdvReac "have Verified 07/07/23 12:11 opposite reaction, high energy for 3 days" Surgical - Exam Vital Signs Temp Pulse Resp BP Pulse Ox 97.3 F L 63 20 187/83 96 07/07/23 12:34 07/07/23 12:34 07/07/23 12:34 07/07/23 12:34 07/07/23 12:34 Physical exam: General: Well-developed, well-nourished HEENT: Normocephalic, sclerae nonicteric Abdomen: Nontender, nondistended, right-sided catheter in place Extremities: No edema Neuro: Alert and oriented Results - Labs 07/07/23 12:30 07/07/23 12:30 Abnormal Lab Results - Last 24 Hours (Table) 07/07/23 07/07/23 Range/Units 12:30 12:30 RBC 3.30 L (3.80-5.40) m/uL Hgb 10.2 L (11.4-16.0) gm/dL Hct 31.0 L (34.0-46.0) % RDW 18.3 H (11.5-15.5) % Carbon Dioxide 31 H (22-30) mmol/L Creatinine 3.19 H (0.52-1.04) mg/dL Diabetes panel 07/07/23 Range/Units 12:30 Sodium 139 (137-145) mmol/L Potassium 4.2 (3.5-5.1) mmol/L Chloride 99 (98-107) mmol/L Carbon Dioxide 31 H (22-30) mmol/L BUN 15 (7-17) mg/dL Creatinine 3.19 H (0.52-1.04) mg/dL Pituitary panel 07/07/23 Range/Units 12:30 Sodium 139 (137-145) mmol/L Potassium 4.2 (3.5-5.1) mmol/L Chloride 99 (98-107) mmol/L Carbon Dioxide 31 H (22-30) mmol/L BUN 15 (7-17) mg/dL Creatinine 3.19 H (0.52-1.04) mg/dL Adrenal panel 07/07/23 Range/Units 12:30 Sodium 139 (137-145) mmol/L Potassium 4.2 (3.5-5.1) mmol/L Chloride 99 (98-107) mmol/L Carbon Dioxide 31 H (22-30) mmol/L BUN 15 (7-17) mg/dL Creatinine 3.19 H (0.52-1.04) mg/dL Assessment and Plan (1) Renal failure Narrative/Plan: Will proceed with peritoneal dialysis catheter removal at this time. Current Visit: Yes Status: Acute Code(s): N19 - UNSPECIFIED KIDNEY FAILURE SNOMED Code(s): 70822163
[2023-07-07] MEDS ORDERED: BUPIVACAINE (PF) 0.25% 10 ML VIAL SQ ONE ×2 (13:21→13:43)
[2023-07-07] MEDS ORDERED: NALOXONE 0.4 MG/ML 1 ML VIAL IV PRN (14:09)
--- NOTE | 2023-07-07 14:12 | P.OP ---
Date of Procedure: 07/07/23 Procedure(s) Performed: PREOPERATIVE DIAGNOSIS: Renal failure POSTOPERATIVE DIAGNOSIS: Same PROCEDURE: PD cath removal SURGEON: Memo EBL: 2 mL ANESTHESIA: Sedation and local COMPLICATIONS: None OPERATIVE PROCEDURE: Patient was placed in the supine position. The abdomen was prepped and draped in usual sterile fashion. The previous right-sided incision was re-incised after localizing the skin. The subcutaneous tissues were divided using electrocautery. Blunt dissection around the cuff that was present at the fascia and peritoneum took place. The cuff was fully mobilized. The catheter was removed from the perineal cavity. The outer cuff was dissected from the saphenous fascia using electrocautery. The catheter was cut on the other side of that cuff and the catheter was removed. The fascial defect was closed using a single [id number] 0 Vicryl stitch. The subcutaneous tissues were closed using 3-0 Vicryl sutures and the skin using 4-0 Monocryl sutures. Skin glue and sterile dressings were applied. DISPOSITION: Stable to recovery room
[2023-07-07] MEDS ORDERED: hydrALAZINE HCL 20 MG/ML 1 ML VIAL ONE (14:25)
[2023-07-07] MEDS ORDERED: hydrALAZINE HCL 20 MG/ML 1 ML VIAL IVP ONE ×2 (14:26→14:28)
[2023-07-07 14:28] VITALS: RESP 16
[2023-07-07 14:53] VITALS: BP 153/63; PULSE 68
== END 2023-07-07 15:15 | disposition home or self-care (01) ==
LOC: OR 11:51
PROVIDERS: ATTEND Surgery
DX: N19 Unspecified kidney failure (principal); I10 Essential (primary) hypertension; E78.5 Hyperlipidemia, unspecified; K21.9 Gastro-esophageal reflux disease without esophagitis; Z49.01 Encounter for fitting and adjustment of extracorporeal dialysis catheter; Z86.73 Personal history of transient ischemic attack (TIA), and cerebral infarction without residual deficits; Z90.710 Acquired absence of both cervix and uterus; Z87.891 Personal history of nicotine dependence; Z79.01 Long term (current) use of anticoagulants; Z88.1 Allergy status to other antibiotic agents; Z98.890 Other specified postprocedural states; Z79.899 Other long term (current) drug therapy
CPT/HCPCS: 80051; 82565; 84520; 85027; 49422; J2250; J0360; J1100; J0690; J2405; J3010; J2704; J2001

== ENCOUNTER 2023-09-20 11:05 | Day surgery (SDC) | payer MEDICARE, BC, OTHER ==
[~2023-09-20 11:05] MED LIST changes: -DEXAMETHASONE SOD PHOSPHATE 4 MG/ML 1 ML VIAL IV ONE; +HYDROmorphone 0.5 MG/0.5 ML SYRINGE IVP PRN; -ONDANSETRON 4 MG/2 ML VIAL IVP ONE; -fentaNYL (PF) 50 MCG/ML 2 ML AMP IV PRN
[2023-09-20 12:05] VITALS: RESP 16
[2023-09-20] MEDS ORDERED: ONDANSETRON 4 MG/2 ML VIAL ONE (12:06)
[2023-09-20 12:12] LABS: Basophils % (A) 0 %; Eosinophils # (A) 0.1 k/uL (0-0.7); Eosinophils % (A) 1 %; HCT 41.8 % (34.0-46.0); HGB 13.7 gm/dL (11.4-16.0); Lymphocytes # (A) 1.4 k/uL (1.0-4.8); Lymphocytes % (A) 22 %; MCH 30.5 pg (25.0-35.0); MCHC 32.7 g/dL (31.0-37.0); MCV 93.3 fL (80.0-100.0); Mean Platelet Volume 9.2; Monocytes # (A) 0.4 k/uL (0-1.0); Monocytes % (A) 6 %; Neutrophils # (A) 4.4 k/uL (1.3-7.7); Neutrophils % (A) 69 %; Platelet Count 230 k/uL (150-450); RBC 4.48 m/uL (3.80-5.40); RDW 15.7 % (11.5-15.5); WBC 6.4 k/uL (3.8-10.6)
[2023-09-20] MEDS ORDERED: DEXAMETHASONE SOD PHOSPHATE 4 MG/ML 1 ML VIAL IVP ONE (12:15)
[2023-09-20] MEDS ORDERED: ONDANSETRON 4 MG/2 ML VIAL IVP ONE (12:15)
[2023-09-20 12:34] LABS: ALT 18 U/L (4-34); AST 21 U/L (14-36); African American GFR (CKD) 9 (>60 ml/min/1.73 sqM); Albumin 4.5 g/dL (3.5-5.0); Alkaline Phosphatase 92 U/L (38-126); Anion Gap 14 mmol/L; Blood Urea Nitrogen 27 mg/dL (7-17); Calcium 10.7 mg/dL (8.4-10.2); Carbon Dioxide 25 mmol/L (22-30); Chloride 100 mmol/L (98-107); Glucose 98 mg/dL (74-99); Non-African American GFR(CKD) 8 (>60 ml/min/1.73 sqM); Potassium 4.3 mmol/L (3.5-5.1); Sodium 139 mmol/L (137-145); Total Bilirubin 0.5 mg/dL (0.2-1.3); Total Protein 7.1 g/dL (6.3-8.2)
--- NOTE | 2023-09-20 13:01 | P.ANPRN ---
Procedure Note - Anesthesia - Nerve Block Performed Left Supraclavicular Single Time Out Performed: Yes (1247) Date of Procedure: 09/20/23 Procedure Start Time: 12:50 Procedure Stop Time: 12:55 Location of Patient: PreOp Indication: Acute Post-Operative Pain, Requested by Surgeon Sedation Type: Sedate with meaningful contact maintained Preparation: Sterile Prep, Sterile Dressing Position: Sitting Catheter: None Needle Types: Pajunk Needle Gauge: 21 Ultrasound used to visualize needle placement: Yes Ultrasound used to observe medication spread: Yes Injectate: 0.5% Ropivacaine (see comment for volume) (21 mL of block solution containing 20 ML of 0.5% ropivacaine mixed with 40 MG of dexamethasone) Blood Aspirated: No Pain Paresthesia on Injection Noted: No Resistance on Injection: Normal Image Stored and Saved: Yes Events: Uneventful and Well Tolerated
[2023-09-20] MEDS ORDERED: fentaNYL (PF) 50 MCG/ML 2 ML AMP ONE (13:19)
[2023-09-20] MEDS ORDERED: PHENYLEPHRINE-0.9% NACL SYG 1,000 MCG/10 ML SYRINGE ONE (13:19)
[2023-09-20] MEDS ORDERED: ROPIVACAINE 5 MG/ML 30 ML VIAL ONE (13:19)
[2023-09-20] MEDS ORDERED: PROPOFOL 10 MG/ML 20 ML VIAL IV ONE (13:19)
[2023-09-20] MEDS ORDERED: ePHEDrine 50 MG/ML 1 ML VIAL ONE (13:19)
[2023-09-20] MEDS ORDERED: LIDOCAINE 1% INJ 10MG/ML (20 ML MDV) ONE (13:19)
[2023-09-20] MEDS ORDERED: HEPARIN SODIUM,PORCINE 5,000 UNIT/ML 1 ML VIAL ONE (13:19)
[2023-09-20] MEDS ORDERED: BUPIVACAINE (PF) 0.5% 30 ML VIAL SQ ONE ×2 (13:55)
[2023-09-20] MEDS ORDERED: HEPARIN SODIUM PORCINE IV ONE ×2 (13:55)
[2023-09-20] MEDS ORDERED: SODIUM CHLORIDE 0.9% IV ONE ×2 (13:55)
[2023-09-20] MEDS ORDERED: ceFAZolin 2 GM in SODIUM CHLORIDE 0.9% 500 ML 500 ML IRRIGATION ONE (13:57)
[2023-09-20] MEDS ORDERED: GELATIN SPONGE,ABSORB (SMALL) 1 EACH SPONGE TOPICAL ONE (14:41)
[2023-09-20] MEDS ORDERED: THROMBIN (BOVINE) 5,000 UNIT VIAL TOPICAL ONE (14:42)
--- NOTE | 2023-09-20 15:31 | P.OP ---
Date of Procedure: 09/20/23 Description of Procedure: Preoperative diagnosis: End-stage renal disease, needs dialysis Postoperative diagnosis: Same Procedure: Left upper extremity loop forearm graft Surgeon: She Dupree D.O. Anesthesia: Regional block, subsequent anesthesia with LMA EBL: 50 mL IV fluids: See operative records Urine output: Not measured Drains: None Complications: None immediately apparent Condition: Stable to PACU Operative indication and findings: Patient is a 78-year-old female on dialysis via a right chest wall tunneled catheter was nondialysis earlier this year who presents today for loop forearm graft for dialysis access. Risks and benefits were discussed. She seemingly understood and was willing to proceed. Procedure in detail: The patient was taken to the operative suite and placed in supine position. The upper extremity is prepped and draped in usual sterile fashion. A preprocedure timeout was performed, all parties were in agreement. A transverse incision was made just distal to the antecubital fossa and carried down to the level of the brachial artery. It was dissected free circumferentially and proximal and distal Vesseloops were placed. Attention was then turned towards the venous outflow. The most appropriate sized appearing vein was themedian cubital vein therefore it was dissected free and encircled proximally and distally. The 4 x 7 propatent graft was then tunneled through a counter incision in the forearm and a subcutaneous tissues. The patient was then heparinized. Flow was occluded through the artery. An arteriotomy was performed and anastomosis to the graft was performed with 6-0 Prolene. The graft was then flushed and the anastomosis was completed. Flow was resumed through the artery. Attention was then turned towards the venous anastomosis. Flow was occluded through the vein and a venotomy was performed. Anastomosis created with 6-0 Prolene. Prior to completion of the anastomosis the graft was flushed as well as the veins themselves. Flow was reinstituted. There remained a palpable pulse proximal and distal to the arterial anastomosis as well as a palpable radial pulse. Thrombin Gelfoam was used for hemostasis. The incision sites were copiously irrigated the subcutaneous tissues were approximately with 3-0 Vicryl in interrupted fashion and the skin was reapproximated with running 4-0 Monocryl. Skin glue was placed. The patient was allowed awaken from anesthesia and transferred to PACU in stable condition having tolerated the procedure well.] Plan - Discharge Summary Discharge Rx Participant: No New Discharge Prescriptions: No Action allopurinoL [Zyloprim] 100 mg PO PC-BID Atorvastatin [Lipitor] 40 mg PO PC-SUPPER traMADol HCL [Ultram] 50 mg PO HS Venlafaxine HCl [Effexor XR] 150 mg PO QAM Cyanocobalamin (Vitamin B-12) [Vitamin B-12] 1,000 mcg PO 1200 Apixaban [Eliquis] 2.5 mg PO BID #60 tab amLODIPine [Norvasc] 5 - 10 mg PO DIRECTED PRN PRN Reason: Hypertension cycloSPORINE [Restasis] 1 applicator BOTH EYES BID Folic Acid/Vit B Complex and C [Nephro Vitamins Tablet] 0.8 mg PO HS Famotidine [Pepcid] 20 mg PO PC-BID Discharge Medication List Atorvastatin [Lipitor] 40 mg PO PC-SUPPER 07/27/20 [History] Venlafaxine HCl [Effexor XR] 150 mg PO QAM 07/27/20 [History] allopurinoL [Zyloprim] 100 mg PO PC-BID 07/27/20 [History] traMADol HCL [Ultram] 50 mg PO HS 07/27/20 [History] cycloSPORINE [Restasis] 1 applicator BOTH EYES BID 03/08/21 [History] Cyanocobalamin (Vitamin B-12) [Vitamin B-12] 1,000 mcg PO 1200 03/01/23 [History] Famotidine [Pepcid] 20 mg PO PC-BID 06/12/23 [History] Folic Acid/Vit B Complex and C [Nephro Vitamins Tablet] 0.8 mg PO HS 06/12/23 [History] Apixaban [Eliquis] 2.5 mg PO BID #60 tab 06/15/23 [Rx] amLODIPine [Norvasc] 5 - 10 mg PO DIRECTED PRN 09/19/23 [History] Follow up Appointment(s)/Referral(s): She Dupree DO [STAFF PHYSICIAN] - 2 Weeks Activity/Diet/Wound Care/Special Instructions: Resume regular diet. Resume home medications. Resume bathing as previously. Leave wrap in place for 48 hours. Utilize [id number]-kxvsita medications for pain control. May use ice. Discharge Disposition: HOME SELF-CARE
[2023-09-20 15:53] VITALS: TEMP 97.4
[2023-09-20 16:50] VITALS: BP 164/72; PULSE 92
== END 2023-09-20 17:10 | disposition home or self-care (01) ==
LOC: OR 11:05
PROVIDERS: ATTEND Surgery
DX: I12.0 Hypertensive chronic kidney disease with stage 5 chronic kidney disease or end stage renal disease (principal); N18.6 End stage renal disease; M19.90 Unspecified osteoarthritis, unspecified site; M10.9 Gout, unspecified; I48.91 Unspecified atrial fibrillation; K21.9 Gastro-esophageal reflux disease without esophagitis; Z79.01 Long term (current) use of anticoagulants; F10.90 Alcohol use, unspecified, uncomplicated; Z88.0 Allergy status to penicillin; Z88.1 Allergy status to other antibiotic agents; Z88.2 Allergy status to sulfonamides; Z88.5 Allergy status to narcotic agent; Z87.891 Personal history of nicotine dependence; Z86.73 Personal history of transient ischemic attack (TIA), and cerebral infarction without residual deficits; Z79.899 Other long term (current) drug therapy
CPT/HCPCS: 64415; 80053; 85025; 36825; L8670; J2250; J1644; J1100; J0690; J2405; J2001; J3010; J2795; J2704; J2371; J0665

== ENCOUNTER → 2024-05-01 | Outpatient (CLI) | payer MEDICARE, BC, OTHER ==
--- NOTE | 2024-05-02 21:07 | MM ---
Reason for Exam: Screening (asymptomatic). Last mammogram was performed 1 year(s) and 3 month(s) ago. Patient History: Menarche at age 14. First Full-Term at age 20. Right ovary removed at age 31. Hysterectomy at age 31. Postmenopausal. Benign Cyst Aspiration on the right side. Risk Values: Korin 5 year model risk: 1.3%. NCI Lifetime model risk: 2.4%. Prior Study Comparison: 09/02/2020 Bilateral Screening Mammogram, [facility]. 12/22/2021 Bilateral Diagnostic Mammogram, [facility]. 02/14/2023 Bilateral MG 3D screening mammo w/cad, [facility]. Tissue Density: There are scattered areas of fibroglandular density. Findings: Analyzed By CAD. There is no suspicious group of microcalcifications or new suspicious mass in either breast. Overall Assessment: Benign, BI-RAD 2 Management: Screening Mammogram of both breasts in 1 year. Further clinical management of patient's intermittent left breast pain. Patient should continue monthly self-breast exams. A clinical breast exam by your physician is recommended on an annual basis. This exam should not preclude additional follow-up of suspicious palpable abnormalities. Note on Korin scores and lifetime risk: 1. A Korin score greater than 3% is considered moderate risk. If this is the case, consider specialist referral to assess eligibility for a risk reducing agent. 2. If overall lifetime risk for the development of breast cancer is 20% or higher, the patient may qualify for future screening with alternating mammogram and breast MRI. Electronically signed and approved by: Molina Shah M.D. Radiologist
== END | disposition home or self-care (01) ==
LOC: RADMAMWWP 16:28
PROVIDERS: ATTEND Family Medicine
DX: Z12.31 Encounter for screening mammogram for malignant neoplasm of breast (principal); Z78.0 Asymptomatic menopausal state
CPT/HCPCS: 77063; 77067

== ENCOUNTER → 2025-06-11 | Outpatient (CLI) | payer MEDICARE, BC, OTHER ==
--- NOTE | 2025-06-11 13:39 | MM ---
Reason for Exam: Clinical finding. Last mammogram was performed 1 year(s) and 1 month(s) ago. Indicated Problems: Non-bloody discharge of the left side (Yellow) for 1 Month(s). Patient History: Menarche at age 14. First Full-Term at age 20. Right ovary removed at age 31. Hysterectomy at age 31. Postmenopausal. Benign Cyst Aspiration on the right side. Risk Values: Korin 5 year model risk: 1.2%. NCI Lifetime model risk: 2.2%. Prior Study Comparison: 04/01/2015 Screening Mammogram, [facility] . 04/08/2016 Screening Mammogram, [facility] . 05/03/2017 Bilateral Screening Mammogram, [facility]. 05/09/2018 Bilateral Screening Mammogram, [facility]. 07/08/2019 Bilateral Screening Mammogram, [facility]. 09/02/2020 Bilateral Screening Mammogram, [facility]. 12/22/2021 Bilateral Diagnostic Mammogram, [facility]. 02/14/2023 Bilateral MG 3D screening mammo w/cad, [facility]. 05/01/2024 Bilateral MG 3D screening mammo w/cad, [facility]. Tissue Density: The breasts are heterogeneously dense, which may obscure small masses. Findings: Analyzed By CAD. No evidence for mass or distortion. No suspicious microcalcifications. Overall Assessment: Benign, BI-RAD 2 Management: Screening Mammogram of both breasts in 1 year. . Results were given to the patient verbally at the time of exam. Patient should continue monthly self-breast exams. A clinical breast exam by your physician is recommended on an annual basis. This exam should not preclude additional follow-up of suspicious palpable abnormalities. Note on Korin scores and lifetime risk: 1. A Korin score greater than 3% is considered moderate risk. If this is the case, consider specialist referral to assess eligibility for a risk reducing agent. 2. If overall lifetime risk for the development of breast cancer is 20% or higher, the patient may qualify for future screening with alternating mammogram and breast MRI. [facility], , 06/11/2025 1:36 PM. Electronically signed and approved by: Real Levi M.D. Radiologis
== END | disposition home or self-care (01) ==
LOC: RADMAMWWP 13:10
PROVIDERS: ATTEND Family Medicine
DX: N64.52 Nipple discharge (principal); R92.333 Mammographic heterogeneous density, bilateral breasts; Z78.0 Asymptomatic menopausal state
CPT/HCPCS: 77066; G0279; 77062